=== PATIENT | male | born 1990 | race Caucasian/White ===

== ENCOUNTER 2018-03-07 03:46 | Emergency (ER) | payer MEDICAID, SELFPAY ==
[2018-03-07 03:46] VITALS: BP 127/95; PULSE 77; RESP 16; TEMP 36.5; O2SAT 98; BMI 21.5
--- NOTE | 2018-03-07 04:11 | EKG12_ITS ---
Test Reason : [facility] [place] Blood Pressure : / mmHG Vent. Rate : 069 BPM Atrial Rate : 069 BPM P-R Int : 156 ms QRS Dur : 098 ms QT Int : 400 ms P-R-T Axes : 080 030 030 degrees QTc Int : 428 ms Normal sinus rhythm Normal ECG Confirmed by DANNA NOVAK MD ([id number]), commercial production editor GLENN LI ([id number] on 03/09/2018 9:07:37 AM Referred By: REECE Confirmed By:DANNA NOVAK MD
[2018-03-07 04:25] LABS: Absolute Lymphocyte Count 3.38 X10^3/ul (0.83-4.51); Absolute Neutrophil Count 4.3 X10^3/uL (2.0-7.7); Basophil# 0.05 X10^3/uL; Basophil% 0.6 % (0-1); Eosinophil# 0.27 X10^3/uL; Eosinophils% 3.1 % (0-5); Hematocrit 41.9 % (40-54); Lymphocyte # 3.38 X10^3/ul (4.0); Lymphocyte % 38.5 % (19-41); Mean Corp Hgb Conc 35.8 g/gl (32-36); Mean Corpuscular Hgb 29.4 pg (27.0-32.0); Mean Platelet Vol. 9.2 fl (6.2-12.0); Monocyte# 0.76 X10^3/uL; Monocyte% 8.6 % (0-10); Neutrophil # 4.31 X10^3/uL (2.7-7.7); Platelet Count 470 K/mm3 (150-450); RBC Distribution Width CV 12.8 % (11.6-14.6); Red Blood Count 5.11 M/mm3 (4.6-6.2); White Blood Count 8.8 K/mm3 (4.4-11.0)
[2018-03-07 04:26] LABS: POSITIVE COUNT NO; POSITIVE DIFFERENTIAL NO; POSITIVE MORPHOLOGY NO
[2018-03-07] MEDS: Ondansetron ODT 4 MG Tablet PO (04:29)
[2018-03-07 05:02] LABS: Anion Gap 8 (5-15); BUN 14 mg/dL (7-18); BUN/Creat Ratio 17.1 RATIO (10-20); Chloride 105 mmol/L (98-107); Creatinine, Serum 0.82 mg/dL (0.70-1.30); EST Glomerular Filtration Rate 120 mL/min (>60); Est Glom Filt Rate - Afr Amer 145 mL/min (>60); Estimated Creatinine Clearance 131.38 ml/min; Glucose 100 mg/dL (74-106); Potassium 3.8 mmol/L (3.5-5.1); Sodium Level 141 mmol/L (136-145); Thyroid Stim Hormone (TSH) 1.03 uIU/mL (0.358-3.74)
--- NOTE | 2018-03-07 05:11 | ED.VISSUMM ---
- ER Visit Summary Date of Service: 03/07/18 Chief Complaint: Palpitations, insomnia History of Present Illness: The patient is a 27 M with a history of schizophrenia who states that he has had palpitations for the last hour. He also notes increased difficulty sleeping for the past week. He normally sleeps up to 12 hours a day but states he is only been sleeping for about 4 hours a day for the last week. He is concerned he may have been bipolar disorder. He complains of mild headache. He also admits to occasional auditory hallucinations. He is not suicidal. He is not homicidal. He does complain of some nausea. Physical Examination: Afebrile vitals are normal Patient resting comfortably in no distress Patient does not appear internally stimulated, he does have a blunted affect Moist mucous membranes Heart regular rate and rhythm Lungs are clear Abdomen soft Alert Test Results: EKG shows sinus rhythm at a rate of 69 unchanged from prior. CBC BMP normal. Alcohol normal. TSH normal. Emergency Department Course and Treatment: In regards to the patient's palpitations he has an unremarkable workup and is in normal sinus rhythm with a normal heart rate. I do believe he can be followed up as an outpatient for this. I do not believe he is acutely psychotic. I do not believe he meets criteria for involuntary psychiatric admission. He was advised to follow-up with his primary care physician. He understands return for new or worsening symptoms. He was discharged. Treatment Plan: [] Disposition: Discharge Impression: Palpitations Insomnia Schizophrenia This note was generated with [employer] dictation software. It may contain incorrect words, spelling, and punctuation that were not noted in review of the chart prior to signing ED Disposition - Plan for ED Patient: Chief Complaint: Mental Health Referrals: Lance Salgado DO [Primary Care Provider] -
--- NOTE | 2018-03-07 05:12 | ED.DEP ---
ED Disposition - Plan for ED Patient: Chief Complaint: Mental Health Instructions: ED Palpitations Referrals: Lance Salgado DO [Primary Care Provider] -
[2018-03-07 05:22] VITALS: BP 132/98; PULSE 66; RESP 16; O2SAT 95
== END 2018-03-07 05:23 | disposition home or self-care (01) ==
LOC: ED 04:37
PROVIDERS: Emergency Provider Emergency Medicine; Family Provider Pediatrics; PCP Pediatrics
DX: R00.2 Palpitations (principal); G47.00 Insomnia, unspecified; F20.9 Schizophrenia, unspecified; Z72.0 Tobacco use
CPT/HCPCS: 36415; 80048; 80320; 84443; 85025; 93005; 96374; 99284; G0480

== ENCOUNTER 2018-10-20 03:47 | Emergency (ER) | payer MEDICAID, SELFPAY ==
[2018-10-20 03:48] VITALS: BP 130/91; PULSE 97; RESP 16; TEMP 36.4; O2SAT 98; BMI 26.8
--- NOTE | 2018-10-20 04:07 | ED.VISSUMM ---
- ER Visit Summary Date of Service: 10/20/18 Chief Complaint: Restlessness hallucinations History of Present Illness: The patient is a 28 M with history of schizophrenia who is on Prolixin and Cogentin presents to the emergency department increasing restlessness and hallucinations. Patient states normally, he does not have hallucinations and his schizophrenia is usually well maintained. He states over the past 24 hours, he is been very afraid to go to sleep. He states when he falls asleep, he will have various voices that torture me when he is sleeping. He denies any change in his medications. He denies any drug use. He is otherwise been in his normal state of health. He states he is not been suicidal or homicidal. He just feels like he cannot deal with these hallucinations. Physical Examination: Vital signs reviewed General: Well-nourished, well-developed Head: Normocephalic, atraumatic Eyes: Pupils equal and reactive, extraocular muscles intact Neck, supple, no lymphadenopathy Heart: Regular rate and rhythm Respiratory: No distress, clear bilaterally Abdomen: Soft, nontender, nondistended, no peritoneal signs Back: Nontender Extremities: Nontender, no edema, no cords Skin: Normal color no rash Neuro: Alert and oriented, no focal or lateralizing deficits Test Results: [] Emergency Department Course and Treatment: The patient is not suicidal or homicidal. He has been having increasing hallucinations. Medical screening exam was performed. Labs were obtained and were unremarkable. My plan was to have crisis talk to the patient about outpatient follow-up versus medication titration. Patient states he does not want to stay. Both he and his father want to leave. I did ask him to stay to at least talk to the counselor. He still states that he feels improved. Is not suicidal. Is not homicidal. He does have hallucinations, but this is more of his baseline. I do not have any indication for an involuntary psychiatric hold. I did discuss with the patient and his father that if anything changes, he is feeling worse, he has worsening hallucinations, or is feeling suicidal he needs to return. He is comfortable with this plan of care.] Treatment Plan: [] Disposition: Discharge Impression: 1. Auditory hallucinations This note was generated with Event[employer] software. It may contain incorrect words, spelling, and punctuation that were not noted in review of the chart prior to signing ED Disposition - Plan for ED Patient: Instructions: ED Paranoid Schizophrenia Referrals: Dennis Olivas [Primary Care Provider] -
[2018-10-20 04:15] LABS: Absolute Lymphocyte Count 3.06 X10^3/ul (0.83-4.51); Absolute Neutrophil Count 4.4 X10^3/uL (2.0-7.7); Basophil# 0.04 X10^3/uL; Basophil% 0.5 % (0-1); Eosinophil# 0.35 X10^3/uL; Eosinophils% 4.1 % (0-5); Hematocrit 44.6 % (40-54); Hemoglobin 15.3 g/dl (13.0-16.5); Lymphocyte # 3.06 X10^3/ul (4.0); Lymphocyte % 35.7 % (19-41); Mean Corp Hgb Conc 34.3 g/gl (32-36); Mean Corpuscular Hgb 28.4 pg (27.0-32.0); Mean Corpuscular Volume 82.7 fL (80-94); Mean Platelet Vol. 9.7 fl (6.2-12.0); Monocyte# 0.72 X10^3/uL; Monocyte% 8.4 % (0-10); Neutrophil % 51.2 % (47-70); Platelet Count 493 K/mm3 (150-450); RBC Distribution Width CV 13.1 % (11.6-14.6); RBC Distribution Width SD 39.5 fl (35.1-43.9); Red Blood Count 5.39 M/mm3 (4.6-6.2); White Blood Count 8.6 K/mm3 (4.4-11.0)
[2018-10-20 04:25] LABS: Anion Gap 11 (5-15); BUN 11 mg/dL (7-18); BUN/Creat Ratio 14.4 RATIO (10-20); Calcium,Total 9.4 mg/dL (8.5-10.1); Chloride 102 mmol/L (98-107); Creatinine, Serum 0.76 mg/dL (0.70-1.30); EST Glomerular Filtration Rate 130 mL/min (>60); Est Glom Filt Rate - Afr Amer 157 mL/min (>60); Glucose 88 mg/dL (74-106); Potassium 3.8 mmol/L (3.5-5.1); Sodium Level 139 mmol/L (136-145)
[2018-10-20 04:29] LABS: POSITIVE COUNT NO; POSITIVE DIFFERENTIAL NO; POSITIVE MORPHOLOGY NO
--- NOTE | 2018-10-20 04:58 | EKG12_ITS ---
Test Reason : PALPITATIONS Blood Pressure : / mmHG Vent. Rate : 072 BPM Atrial Rate : 072 BPM P-R Int : 148 ms QRS Dur : 096 ms QT Int : 388 ms P-R-T Axes : 040 029 030 degrees QTc Int : 424 ms Normal sinus rhythm Normal ECG Confirmed by DANNA NOVAK MD ([id number]), assistant editor SARAH IZAGUIRRE ([id number]) on 10/22/2018 10:14:57 AM Referred By: DEANNA Confirmed By:DANNA NOVAK MD
[2018-10-20 05:23] LABS: Amphetamine Urine VISTA NEGATIVE (<1000 ng/mL); Barbiturate Urine VISTA NEGATIVE (< 200 ng/mL); Benzodiazepine Urine VISTA NEGATIVE (< 200 ng/mL); Cocaine Urine VISTA NEGATIVE (< 300 ng/mL); Ecstacy Urine VISTA NEGATIVE (< 500 ng/mL); Methadone Urine VISTA NEGATIVE (< 300 ng/mL); PCP Urine VISTA NEGATIVE (< 25 ng/mL); THC Urine VISTA NEGATIVE (< 50 ng/mL); Vista UDS pH Range 6
--- NOTE | 2018-10-20 06:14 | ED.RN ---
Patient at this time no longer wants to wait for crisis to arrive. Dr. Lloyd made aware. Patient has no SI or HI. Patient is not pink slipped and able to make decisions. Patient father willing to accept patient care. Discharge instructions given. as patient is walking out Joanna with crisis arrived. Patient does not want to stay and talk with crisis. Patient information given to crisis to follow up outpatient. Patients father agrees to plan of care
== END 2018-10-20 06:18 | disposition home or self-care (01) ==
PROVIDERS: Emergency Provider Emergency Medicine; Family Provider Family Medicine
DX: R44.0 Auditory hallucinations (principal); F41.9 Anxiety disorder, unspecified; F20.9 Schizophrenia, unspecified
CPT/HCPCS: 80048; 80307; 80320; 85025; 93005; 99282; G0480

== ENCOUNTER 2019-03-14 00:15 | Emergency (ER) | payer MEDICAID, SELFPAY ==
[2019-03-14 00:16] VITALS: BP 116/82; PULSE 94; RESP 19; TEMP 36.5; O2SAT 96; BMI 25.5
[2019-03-14 00:57] LABS: Absolute Lymphocyte Count 2.99 X10^3/ul (0.83-4.51); Absolute Neutrophil Count 4.3 X10^3/uL (2.0-7.7); Basophil# 0.05 X10^3/uL; Basophil% 0.6 % (0-1); Eosinophils% 2.4 % (0-5); Hematocrit 40.3 % (40-54); Hemoglobin 14.4 g/dl (13.0-16.5); Lymphocyte # 2.99 X10^3/ul (4.0); Lymphocyte % 36.3 % (19-41); Mean Corp Hgb Conc 35.7 g/gl (32-36); Mean Corpuscular Hgb 28.7 pg (27.0-32.0); Mean Corpuscular Volume 80.4 fL (80-94); Mean Platelet Vol. 9.5 fl (6.2-12.0); Monocyte# 0.74 X10^3/uL; Neutrophil # 4.25 X10^3/uL (2.7-7.7); Neutrophil % 51.6 % (47-70); Platelet Count 361 K/mm3 (150-450); RBC Distribution Width CV 13.2 % (11.6-14.6); RBC Distribution Width SD 37.9 fl (35.1-43.9); Red Blood Count 5.01 M/mm3 (4.6-6.2); White Blood Count 8.2 K/mm3 (4.4-11.0)
[2019-03-14 00:59] LABS: Anion Gap 6 (5-15); BUN 10 mg/dL (7-18); BUN/Creat Ratio 9.4 RATIO (10-20); Calcium,Total 8.9 mg/dL (8.5-10.1); Chloride 104 mmol/L (98-107); Creatinine, Serum 1.06 mg/dL (0.70-1.30); EST Glomerular Filtration Rate 89 mL/min (>60); Est Glom Filt Rate - Afr Amer 107 mL/min (>60); Estimated Creatinine Clearance 91.06 ml/min; Glucose 106 mg/dL (74-106); Potassium 3.4 mmol/L (3.5-5.1); Sodium Level 137 mmol/L (136-145)
[2019-03-14 01:08] LABS: POSITIVE COUNT NO; POSITIVE DIFFERENTIAL NO; POSITIVE MORPHOLOGY NO
[2019-03-14 01:42] LABS: Amphetamine Urine VISTA POSITIVE (<1000 ng/mL); Barbiturate Urine VISTA NEGATIVE (< 200 ng/mL); Benzodiazepine Urine VISTA NEGATIVE (< 200 ng/mL); Cocaine Urine VISTA NEGATIVE (< 300 ng/mL); Ecstacy Urine VISTA NEGATIVE (< 500 ng/mL); Methadone Urine VISTA NEGATIVE (< 300 ng/mL); PCP Urine VISTA NEGATIVE (< 25 ng/mL); THC Urine VISTA NEGATIVE (< 50 ng/mL); Vista UDS pH Range 6
[2019-03-14 02:12] LABS: Alcohol, Blood (Medical)-Serum < 3.0 mg/dL
--- NOTE | 2019-03-14 02:18 | ED.DCSUM_ITS ---
- ER Visit Summary Date of Service: 03/14/19 Chief Complaint: Hallucinations History of Present Illness: The patient is a 28 M presenting with hallucinations. He has a history of schizophrenia. Patient states the hallucinations have been ongoing for several years. He states one of the voices told him to kill himself but he would never do this. He denies suicidal or homicidal ideation. He states he heard whispering voices today and he felt they were evil. No recent change in his medication. Denies alcohol or drug use. Physical Examination: Vitals are stable. Patient is afebrile. Alert no acute distress. HEENT exam is unremarkable. Neck is supple. Lungs are clear and equal bilaterally. Heart is regular rate and rhythm. Extremities are unremarkable. Skin is warm and dry. No focal neurologic deficit. Paranoid. No suicidal or homicidal ideation Remainder of exam is unremarkable. Emergency Department Course and Treatment: CBC, chemistries unremarkable. Tox positive for amphetamine. Alcohol negative. Patient and family would like discharge home. Father states he is at his baseline and he is comfortable with discharge home. Patient denies suicidal or homicidal ideation. He will follow- up with the counseling center. Advised to return to the ED for worsening complaints. Disposition: Discharge home Impression: Auditory hallucinations This note was generated with [employer] dictation software. It may contain incorrect words, spelling, and punctuation that were not noted in review of the chart prior to signing ED Disposition - Plan for ED Patient: Instructions: SCHIZOPHRENIA, General Referrals: [facility] [GROUP OF PHYSICIANS] - Dennis Olivas [Primary Care Provider] -
--- NOTE | 2019-03-14 02:21 | ED.DEP ---
ED Disposition - Plan for ED Patient: Instructions: SCHIZOPHRENIA, General Referrals: Dennis Olivas [Primary Care Provider] - [facility] [GROUP OF PHYSICIANS] -
[2019-03-14 02:29] VITALS: RESP 18
== END 2019-03-14 02:29 | disposition home or self-care (01) ==
PROVIDERS: Emergency Provider Emergency Medicine; Family Provider Family Medicine
DX: R44.0 Auditory hallucinations (principal); Z72.0 Tobacco use
CPT/HCPCS: 36415; 80048; 80307; 80320; 85025; 99282; G0480

== ENCOUNTER 2019-09-03 13:15 | Emergency (ER) | payer MEDICAID, SELFPAY ==
[2019-09-03] VITALS (8 sets, daily range): BP systolic 148–164; BP diastolic 99–111; PULSE 104–121; RESP 14–18; TEMP 36.6–36.7; O2SAT 94–98; BMI 25.7
[2019-09-03 13:50] LABS: Absolute Lymphocyte Count 2.91 X10^3/uL (0.83-4.51); Absolute Neutrophil Count 7.2 X10^3/uL (2.0-7.7); Basophil% 0.9 % (0-1); Eosinophil# 0.41 X10^3/uL; Eosinophils% 3.5 % (0-5); Hematocrit 46.5 % (40-54); Hemoglobin 15.7 g/dL (13.0-16.5); Lymphocyte # 2.91 X10^3/ul (4.0); Mean Corp Hgb Conc 33.8 g/dL (32-36); Mean Platelet Vol. 9.4 fl (6.2-12.0); Monocyte# 0.92 X10^3/uL; Monocyte% 7.9 % (0-10); NRBC Flagged by Analyzer 0 % (0-5); Neutrophil # 7.23 X10^3/uL (2.7-7.7); Neutrophil % 62.3 % (47-70); Platelet Count 679 K/mm3 (150-450); RBC Distribution Width CV 13.4 % (11.6-14.6); RBC Distribution Width SD 41.8 fl (35.1-43.9); Red Blood Count 5.41 M/mm3 (4.6-6.2); White Blood Count 11.6 K/mm3 (4.4-11.0)
[2019-09-03 14:05] LABS: Anion Gap 7 (5-15); BUN 7 mg/dL (7-18); BUN/Creat Ratio 8.6 RATIO (10-20); Calcium,Total 9.6 mg/dL (8.5-10.1); Chloride 104 mmol/L (98-107); Creatinine, Serum 0.81 mg/dL (0.70-1.30); EST Glomerular Filtration Rate 120 mL/min (>60); Est Glom Filt Rate - Afr Amer 146 mL/min (>60); Estimated Creatinine Clearance 113.69 ml/min; Glucose 103 mg/dL (74-106); Potassium 3.4 mmol/L (3.5-5.1); Sodium Level 138 mmol/L (136-145)
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
[2019-09-03 14:28] LABS: Alcohol, Blood (Medical)-Serum < 3.0 mg/dL
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
--- NOTE | 2019-09-03 14:38 | RAD_ITS ---
STUDY: X-RAY CHEST REASON FOR EXAM: Male, 29 years old. History of schizophrenia. Minimal health evaluation. TECHNIQUE: Single frontal view of the chest. COMPARISON: None. FINDINGS: The lungs are clear and expanded. There is no demonstrated pleural abnormality. Normal size heart. Normal mediastinum and david. Normal visualized pulmonary arteries. Normal visualized aortic arch and descending thoracic aorta. Normal visualized thoracic spine. Normal visualized ribs, clavicles, and shoulders. There is no demonstrated abnormality of the visualized soft tissue structures of the upper abdomen. RAD/Chest 1 View (Portable) IMPRESSION: Normal x-ray examination of the chest. Electronically Signed: Leandro Farias MD at 15:03 EST , Service support ,
[2019-09-03 15:10] LABS: Amphetamine Urine VISTA NEGATIVE (<1000 ng/mL); Barbiturate Urine VISTA NEGATIVE (< 200 ng/mL); Benzodiazepine Urine VISTA NEGATIVE (< 200 ng/mL); Cocaine Urine VISTA NEGATIVE (< 300 ng/mL); Ecstacy Urine VISTA NEGATIVE (< 500 ng/mL); Methadone Urine VISTA NEGATIVE (< 300 ng/mL); PCP Urine VISTA NEGATIVE (< 25 ng/mL); THC Urine VISTA NEGATIVE (< 50 ng/mL); Vista UDS pH Range 6
--- NOTE | 2019-09-03 15:36 | CM.ED ---
Social Work Patient medically cleared per Dr. Danielson. Telephone call to [facility]. Made referral. They do have open beds and accept patient insurance. Clinical information faxed. Pending approval. Amber MURRAY, SAMINA
--- NOTE | 2019-09-03 16:17 | CM.ED ---
Social Work Telephone call from [facility]. Patient has been accepted. Admitting: Dr. Armendariz. Nurse to Nurse Report: [phone]. Unit: [id number]. Updated medical staff and patient. All agreeable to plan. Wilburn Slip faxed. Amber Macdonald MSW, SAMINA
--- NOTE | 2019-09-03 16:42 | NURSING ---
CALLED [facility], TRANSPORT WILL BE HERE ABOUT 1929
--- NOTE | 2019-09-03 19:48 | ED.RN ---
REPORT TO [facility]. PT SKIN P/W/D, RESP EVEN AND UNLABORED, NO DISTRESS NOTED.
== END 2019-09-03 19:55 ==
PROVIDERS: Emergency Provider Emergency Medicine
DX: F20.9 Schizophrenia, unspecified (principal); D69.6 Thrombocytopenia, unspecified
CPT/HCPCS: 71045; 80048; 80307; 80320; 85025; 99285; G0480

== ENCOUNTER 2019-10-17 04:08 | Emergency (ER) | payer MEDICAID, SELFPAY ==
[2019-09-03 13:18] VITALS: BMI 25.7
[2019-10-17] VITALS (15 sets, daily range): BP systolic 124–170; BP diastolic 78–110; PULSE 74–114; RESP 16–20; TEMP 36.3; O2SAT 97–100; BMI 26.0
--- NOTE | 2019-10-17 04:22 | ED.DCSUM_ITS ---
History of Present Illness Chief Complaint: Mental Health Informant: Patient, - - Well enforcement Limited: - - Patient does not trust me because I am not a psychiatrist on him wearing green scrubs Onset: - - Patient denied he has history of schizophrenia. When asked if he ever been hospitalized he responded at the age of 23 for schizophrenia. Context: Able to determine Conflict: - - States he is homeless and reason he was brought to the emergency department Timing: - - Unknown Current Severity: Severe Maximum Severity: Severe Worsened by: - - If patient is question or challenged he becomes slightly agitated. His speech becomes pressured. He voices missed trust. Associated Symptoms: Change in sleeping, Easily distracted, Increased activity, Pressured Speech, Agitated, Paranoia, - - During history he would look up to the left and stare. There was no seizure activity. He denied visual or auditory hallucinations.. Negative for: Hopelessness, Suicidal Thoughts, Visual Hallucinations, Auditory Hallucinations Narrative: Patient is a 29-year-old male who apparently was diagnosed with schizophrenia at the age of 23. He is present on no medication. He states he is homeless. He denies tobacco, alcohol or drug use. He was found behind the wa [employer]. He then was taken to [facility]. He was removed from the [facility]. Law enforcement was contacted. Law enforcement was concerned because of patient's thought process. Patient has paranoid ideation. He denies schizophrenia, denies depression, denies auditory or visual elucidation and denies suicidal homicidal thoughts. He believes he was brought here because he is homeless. Prior similar symptoms: Yes Recent Illness/Hospitalization: No - Past Medical History (1) Schizophrenia Status: Acute Past Medical History - Allergies and Home Meds Allergies/Adverse Reactions: Allergies peanut Allergy (Verified 10/17/19 04:12) Food Allergy sulfamethoxazole [From Bactrim] Allergy (Verified 10/17/19 04:12) Itching trimethoprim [From Bactrim] Allergy (Verified 10/17/19 04:12) Itching haloperidol [From Haldol] Adverse Reaction (Verified 10/17/19 04:12) Other Primary Care Physician: NOT,DEFINED [NON-STAFF] - Prior records reviewed: No Surgical History: no surgical history Lives: Homeless, - Smoking Status: Never smoker Alcohol: None Drugs: None Review of Systems General: Denies: Chills, Fever Eyes: Denies: Visual changes - bilaterally, Blurred Vision - bilaterally ENT: Denies: Rhinorrhea, Sore throat Cardiovascular: Denies: Chest pain, Palpitations Respiratory: Denies: Dyspnea, Cough, Dyspnea on exertion Gastrointestinal: Denies: Abdominal pain, Nausea, Vomiting, Diarrhea, Melena, Hematochezia Genitourinary: Denies: Dysuria, Hematuria, Frequency Musculoskeletal: Denies: Myalgias, Arthralgias, Neck pain, Back pain Skin: Denies: Rash, Wounds Neurological: Denies: Headache, Weakness, Parasthesia Psych: Denies: Depression, Anxiety, Suicidal thoughts Hematologic: Denies: Easy bruising, Easy bleeding Allergy: Denies: Uticaria, Swelling of the mouth Physical Exam Vital Signs/Narrative: Vital Signs Temp Pulse Resp BP Pulse Ox 10/17/19 04:09 97.4 F L 94 20 H 170/95 H 97 Inital Vital Signs reviewed: Yes General: Well nourished, Well developed, Unkempt. Negative for: Obese, Cachectic, Contractures Head: Normocephalic, Atraumatic, - - No clinical findings of basilar skull fracture. Negative for: Trauma, Tenderness Eyes: Perrl, EOMI. Negative for: Pale conjunctiva, Scleral icterus ENT: Moist mucous membranes, No rhinorrhea, TM's clear Neck: Supple, Nontender, No lymphadenopathy, No JVD Cardiovascular: Regular rate, Regular rhythm, No murmurs, Normal S1, Normal S2 Respiratory: No distress, CTA bilaterally, Chest nontender Abdomen: Soft, Nontender, Nondistended, Normal bowel sounds Extremities: Nontender, No Edema, Symmetric. Negative for: Tenderness, Edema, Asymmetric Skin: Normal color, No rash, No Trauma. Negative for: Cyanosis, Diaphoresis, Jaundice, Pallor, Rash Neurological: Alert, Cranial nerves II-XII grossly intact, Normal Strength, Normal Sensation, Normal DTR, Normal Gait Psych: Irritable, Labile, Pressured Speech, Incoherent thoughts, Paranoid Ideation, Poor Insight, Poor Judgement. Negative for: Normal Speech Pattern, Logical sequential goal directed thoughts, No suicidal or homicidal ideation, Normal Stable Appropriate Affect, Good Insight, Good Judgement, Normal Appearance Diagnostic/Tx/Re-eval Laboratory Results 02/06/20 02/06/20 02/06/20 04:33 04:33 04:33 WBC 13.7 H RBC 6.13 Hgb 16.9 H Hct 50.3 MCV 82.1 MCH 27.6 MCHC 33.6 RDW Std Deviation 38.4 RDW Coeff of Javy 13.0 Plt Count 797 H* MPV 9.0 Immature Gran % (Auto) 0.300 Neut % (Auto) 64.6 Lymph % (Auto) 25.7 Irion % (Auto) 6.4 Eos % (Auto) 2.1 Baso % (Auto) 0.9 Absolute Neuts (auto) 8.8 H Absolute Lymphs (auto) 3.51 Nucleated RBC % 0 Diff Path Review May foll Platelet Estimate MKD INC Sodium 138 Potassium 3.3 L Chloride 103 Carbon Dioxide 26.0 Anion Gap 9 BUN 2 L Creatinine 0.72 Estim Creat Clear Calc 137.84 Est GFR (MDRD) Af Amer 166 Est GFR (MDRD) Non-Af 137 BUN/Creatinine Ratio 2.8 L Glucose 92 Calcium 9.6 Urine Opiates Screen Urine Methadone Screen Ur Barbiturates Screen Ur Phencyclidine Scrn Ur Amphetamines Screen U Methamphetamin-MDMA U Benzodiazepines Scrn Urine Cocaine Screen U Cannabinoids Screen Ur Drug Screen Comment Ethyl Alcohol < 3.0 10/17/19 06:40 WBC RBC Hgb Hct MCV MCH MCHC RDW Std Deviation RDW Coeff of Javy Plt Count MPV Immature Gran % (Auto) Neut % (Auto) Lymph % (Auto) Irion % (Auto) Eos % (Auto) Baso % (Auto) Absolute Neuts (auto) Absolute Lymphs (auto) Nucleated RBC % Diff Path Review Platelet Estimate Sodium Potassium Chloride Carbon Dioxide Anion Gap BUN Creatinine Estim Creat Clear Calc Est GFR (MDRD) Af Amer Est GFR (MDRD) Non-Af BUN/Creatinine Ratio Glucose Calcium Urine Opiates Screen NEGATIVE Urine Methadone Screen NEGATIVE Ur Barbiturates Screen NEGATIVE Ur Phencyclidine Scrn NEGATIVE Ur Amphetamines Screen NEGATIVE U Methamphetamin-MDMA NEGATIVE U Benzodiazepines Scrn NEGATIVE Urine Cocaine Screen NEGATIVE U Cannabinoids Screen NEGATIVE Ur Drug Screen Comment Ethyl Alcohol Tox screen and alcohol level are nondetected. As previously stated the white count and elevated platelet count are not normal however Patient has paranoia and is schizophrenic. Will obtain CBC, electrolyte panel, tox screen to evaluate patient for other causes of change in mental status. If these are negative with prior history of schizophrenia mental health will be contacted for admission. Patient would benefit from admission. CBC is remarkable for slight elevation white count which is a nonspecific marker and may be elevated for multiple reasons. Platelet count is elevated. This is not normal. This is not an acute abnormality and does not require emergent work-up. This can be worked up as an outpatient over the next couple of weeks. ED Disposition - Plan for ED Patient: Disposition: Psychiatric Hospital or Unit Diagnosis: Schizophrenia, paranoid Referrals: NOT,DEFINED [NON-STAFF] -
[2019-10-17 04:40] LABS: Absolute Lymphocyte Count 3.51 X10^3/uL (0.83-4.51); Absolute Neutrophil Count 8.8 X10^3/uL (2.0-7.7); Basophil# 0.12 X10^3/uL; Basophil% 0.9 % (0-1); Eosinophil# 0.29 X10^3/uL; Eosinophils% 2.1 % (0-5); Hematocrit 50.3 % (40-54); Hemoglobin 16.9 g/dL (13.0-16.5); Lymphocyte # 3.51 X10^3/ul (4.0); Lymphocyte % 25.7 % (19-41); Mean Corp Hgb Conc 33.6 g/dL (32-36); Mean Corpuscular Hgb 27.6 pg (27.0-32.0); Mean Corpuscular Volume 82.1 fL (80-94); Monocyte# 0.88 X10^3/uL; Monocyte% 6.4 % (0-10); NRBC Flagged by Analyzer 0 % (0-5); Neutrophil # 8.83 X10^3/uL (2.7-7.7); Neutrophil % 64.6 % (47-70); POSITIVE COUNT YES; RBC Distribution Width SD 38.4 fl (35.1-43.9); Red Blood Count 6.13 M/mm3 (4.6-6.2); White Blood Count 13.7 K/mm3 (4.4-11.0)
[2019-10-17 04:43] LABS: Differential Indicated SCAN CRITERIA MET
[2019-10-17 04:44] LABS: Platelet Count 797 K/mm3 (150-450)
[2019-10-17 04:59] LABS: Alcohol, Blood (Medical)-Serum < 3.0 mg/dL
[2019-10-17 05:00] LABS: Anion Gap 9 (5-15); BUN 2 mg/dL (7-18); BUN/Creat Ratio 2.8 RATIO (10-20); Calcium,Total 9.6 mg/dL (8.5-10.1); Chloride 103 mmol/L (98-107); Creatinine, Serum 0.72 mg/dL (0.70-1.30); EST Glomerular Filtration Rate 137 mL/min (>60); Est Glom Filt Rate - Afr Amer 166 mL/min (>60); Estimated Creatinine Clearance 137.84 ml/min; Glucose 92 mg/dL (74-106); Potassium 3.3 mmol/L (3.5-5.1); Sodium Level 138 mmol/L (136-145)
[2019-10-17 05:04] LABS: Platelet Estimate MKD INC (ADEQ)
[2019-10-17 07:27] LABS: Amphetamine Urine VISTA NEGATIVE (<1000 ng/mL); Barbiturate Urine VISTA NEGATIVE (< 200 ng/mL); Benzodiazepine Urine VISTA NEGATIVE (< 200 ng/mL); Cocaine Urine VISTA NEGATIVE (< 300 ng/mL); Ecstacy Urine VISTA NEGATIVE (< 500 ng/mL); Methadone Urine VISTA NEGATIVE (< 300 ng/mL); PCP Urine VISTA NEGATIVE (< 25 ng/mL); THC Urine VISTA NEGATIVE (< 50 ng/mL); Vista UDS pH Range 6
[2019-10-17 11:48] LABS: Pathologist Review Reviewed
--- NOTE | 2019-10-17 12:39 | NURSING ---
I CALLED SEVERAL [facility] AND NO ONE IS ABLE TO TAKE PATIENT TO [facility] IN [place]. I THEN CALLED TO [facility] AND TALKED TO TIM AND SHE SAID SHE WOULD SEE WHAT THEY COULD DO BUT NOT PROMISING.
== END 2019-10-17 20:16 ==
PROVIDERS: Emergency Provider Emergency Medicine
DX: F20.0 Paranoid schizophrenia (principal); Z59.0 Homelessness; Z88.1 Allergy status to other antibiotic agents; Z88.2 Allergy status to sulfonamides; Z88.8 Allergy status to other drugs, medicaments and biological substances
CPT/HCPCS: 80048; 80307; 80320; 85025; 99285; A4216; G0480

== ENCOUNTER 2019-11-04 14:26 | Emergency (ER) | payer MEDICAID, SELFPAY ==
[2019-10-17 04:09] VITALS: BMI 26.0
[2019-11-04 14:30] VITALS: BP 151/101; PULSE 110; RESP 16; TEMP 36.4; O2SAT 95; BMI 24.0
--- NOTE | 2019-11-04 15:10 | ED.VIS.GEN ---
History of Present Illness Chief Complaint: Mental Health Informant: Patient, - - Police Narrative: Patient is brought to the emergency department by the police department. He was [facility] asking them to get inside a house that he does not belong to. Patient was recently seen here and transferred to psychiatric facility with psychosis. Tells me he has been out for about a week. He still wearing his hospital scrubs and tells me that all of his belongings are locked in a house and is just locked. No he has a gomez. He tells me that he is royalty but cannot use any of his influence to get into the house because it is locked. He also tells me he is a dangerous weapon stating that he is a [place] him from [facility] but he does not have sex. He states that the rest of the general population is week for having sex. Past Medical History - Allergies and Home Meds Allergies/Adverse Reactions: Allergies peanut Allergy (Verified 10/17/19 04:12) Food Allergy sulfamethoxazole [From Bactrim] Allergy (Verified 10/17/19 04:12) Itching trimethoprim [From Bactrim] Allergy (Verified 10/17/19 04:12) Itching haloperidol [From Haldol] Adverse Reaction (Verified 10/17/19 04:12) Other Primary Care Physician: Care Physician,No Primary [Primary Care Provider] - Surgical History: no surgical history Smoking Status: Former smoker Review of Systems General: Denies: Chills, Fever, Sweats Eyes: Denies: Visual changes - bilaterally, Diplopia ENT: Denies: Rhinorrhea, Sore throat Cardiovascular: Denies: Chest pain, Palpitations Respiratory: Denies: Dyspnea, Cough, Dyspnea on exertion Gastrointestinal: Denies: Abdominal pain, Nausea, Vomiting, Diarrhea, Melena, Hematochezia Genitourinary: Denies: Dysuria, Hematuria, Frequency Musculoskeletal: Denies: Back pain, Extremity Pain Skin: Denies: Rash, Wounds Neurological: Denies: Headache, Weakness, Numbness Psych: Reports: - - See HPI Physical Exam Vital Signs/Narrative: Vital Signs Temp Pulse Resp BP Pulse Ox 11/04/19 14:30 97.6 F L 110 H 16 151/101 H 95 Inital Vital Signs reviewed: Yes General: Well nourished, Well developed, Unkempt - Patient is wearing paper scrubs with holes in them., No Acute Distress Head: Normocephalic, Atraumatic Eyes: Perrl, EOMI ENT: Moist mucous membranes, No rhinorrhea Neck: Supple, Nontender Cardiovascular: Regular rate, Regular rhythm, No murmurs Respiratory: No distress, CTA bilaterally, Chest nontender Abdomen: Soft, Nontender, Nondistended, Normal bowel sounds Back: Nontender, Normal Inspection Extremities: Nontender, No edema Skin: Normal color, No rash Neurological: Alert, Oriented x3, Cranial nerves II-XII grossly intact, Normal Strength, Normal Sensation Psychological: - - Patient has pressured speech. Flight of ideas. Nonlinear thinking. Hallucinations and delusions. Diagnostic/Tx/Re-eval - Medical Decision Making Case discussed with social work who knows the patient. We are unable to find anybody and helpless with him. No family. He does not appear to have the ability to care for himself. Therefore I am concerned for his safety. ED Disposition - Plan for ED Patient: Diagnosis: Acute psychosis, Schizophrenia Referrals: Care Physician,No Primary [Primary Care Provider] -
[2019-11-04 15:42] LABS: Absolute Lymphocyte Count 2.07 X10^3/uL (0.83-4.51); Absolute Neutrophil Count 6.5 X10^3/uL (2.0-7.7); Basophil# 0.07 X10^3/uL; Basophil% 0.7 % (0-1); Eosinophil# 0.23 X10^3/uL; Eosinophils% 2.3 % (0-5); Hematocrit 43.5 % (40-54); Hemoglobin 14.6 g/dL (13.0-16.5); Lymphocyte # 2.07 X10^3/ul (4.0); Mean Corp Hgb Conc 33.6 g/dL (32-36); Mean Corpuscular Hgb 27.4 pg (27.0-32.0); Mean Corpuscular Volume 81.6 fL (80-94); Mean Platelet Vol. 9.7 fl (6.2-12.0); Monocyte# 0.95 X10^3/uL; Monocyte% 9.7 % (0-10); NRBC Flagged by Analyzer 0 % (0-5); Neutrophil # 6.48 X10^3/uL (2.7-7.7); Neutrophil % 65.9 % (47-70); POSITIVE COUNT YES; RBC Distribution Width CV 13.3 % (11.6-14.6); Red Blood Count 5.33 M/mm3 (4.6-6.2); White Blood Count 9.8 K/mm3 (4.4-11.0)
[2019-11-04 16:07] LABS: Alcohol, Blood (Medical)-Serum < 3.0 mg/dL
[2019-11-04 16:09] LABS: Differential Indicated SCAN CRITERIA MET; Platelet Count 770 K/mm3 (150-450)
[2019-11-04 16:14] LABS: ALB/GLOB Ratio 1.2 RATIO (0.9-2.4); AST(SGOT) 13 U/L (15-37); Alanine Aminotransfer ALT/SGPT 23 U/L (16-61); Albumin, Serum 3.8 g/dL (3.2-5.0); Alkaline Phosphatase 73 U/L (45-117); Anion Gap 7 (5-15); BUN 8 mg/dL (7-18); BUN/Creat Ratio 11.2 RATIO (10-20); Calcium,Total 9.4 mg/dL (8.5-10.1); Chloride 106 mmol/L (98-107); Creatinine, Serum 0.72 mg/dL (0.70-1.30); EST Glomerular Filtration Rate 139 mL/min (>60); Est Glom Filt Rate - Afr Amer 168 mL/min (>60); Globulin 3.3 g/dL (2.2-4.2); Glucose 104 mg/dL (74-106); Potassium 3.7 mmol/L (3.5-5.1); Protein, Total 7.1 g/dL (6.4-8.2); Sodium Level 141 mmol/L (136-145); Thyroid Stim Hormone (TSH) 0.42 uIU/mL (0.358-3.74)
[2019-11-04 16:15] LABS: Differential Comment SCANNED; Platelet Estimate MKD INC (ADEQ)
[2019-11-04 17:05] VITALS: BP 141/62; PULSE 78; RESP 16; O2SAT 99
[2019-11-04 17:11] LABS: Bacteria 0 SEEN /hpf (None Seen); Mucous, Urine 0 SEEN /hpf (<or=2+); Red Blood Cells-Urine 0 SEEN /hpf (0-5); Squamous Epithelial Cells - UA 0 SEEN /hpf (0-5); White Blood Cells 0 SEEN /hpf (0-5)
--- NOTE | 2019-11-04 17:20 | CM.ED ---
Social Work Consult: Mental Health Informant: Dr. Andrade Chief Complaint: Marital/Social History: Single Living Situation: Homeless Support/Resources: Limited. History: None. Education/Employment: Unemployed. Completed high school. Mental Health Treatment/History: Patient reporting to be schizoaffective. Patient denies any current medication or counseling services. Patient stating history of inpatient psychiatric placement in the past. Patient reporting to have been discharged from an inpatient psychiatric facility today. Abuse Issues: Denies any active abuse. Substance Abuse: Denies. Risk to Self/Others: Patient denies any suicidal or homicidal thoughts. Mental Status Exam: A&Ox3 Appearance/General Behavior: Disheveled, paranoid. Mood/Affect: Elevated. Appears to be easily annoyed/frustrated. Communication Patterns: Responds to questions, pressured/rapid speech pattern. Thought Process: Appears to be speaking to someone that is not there. Continues to refer to Adarsh Crawford, PHYSICIAN OFFICE CLIN ASST of some company as patient house mate. Assessment: Met with patient in room. Introduced self and vp digital marketing social media and crm role. Patient is agreeable to speak with this vp digital marketing social media and crm. Patient stating to only need to get into patient home on [address] [place] [address]. Patient stating to have called the police to get help with this and the police brought patient to the ED. Patient is presenting with flight of idea and rapid speech pattern. Per Police report patient wanted police to assist patient in getting in to [address] [place] [address], but this is not patient home as confirmed by another person living there. Police stating that patient started acting strange and this is why patient was brought to the hospital. Patient has been pink slipped at this time. When confirming with patient that the home on [facility] is not patient's home patient stating It is my house. Patient denies being homeless. Patient is not open to this vp digital marketing social media and crm contacting any family/friends. Patient stating the only contact number is: [phone] and this is the phone that patient shares with Adarsh Crawford. Patient stating that Adarsh and patient do not answer their phone. This vp digital marketing social media and crm did speak with police further. Police department did provide this vp digital marketing social media and crm with contact information for persons living at [facility] in the event that they know patient, attempted to call theses contacts, no answer. There is not contact information for patient family or friends. Unable to confirm a safe discharge plan. Patient presenting with paranoid thoughts and behaviors. Concerns of patient being able to meet patient own needs at this time. Collaborating with Dr. Andrade, recommending inpatient psychiatric placement for stabilization. PLAN: Will work towards inpatient psychiatric placement. Amber Macdonald MSW, SAMINA
[2019-11-04 17:33] LABS: Color, Urine Yellow (Yellow); Glucose, Dipstick Normal (Normal); Ketone-Dipstick Negative (Negative); Leukocyte Esterase-Dipstick Negative /ul (Negative); Nitrite-Dipstick Negative (Negative); Occult Blood-Urine Negative /ul (Negative); Protein-Dipstick Negative (Negative); Urine Bilirubin Dipstick Negative (Negative); Urine Clarity Clear (Clear); Urine Urobilinogen Normal (Normal)
[2019-11-04 17:41] LABS: Amphetamine Urine VISTA NEGATIVE (<1000 ng/mL); Barbiturate Urine VISTA NEGATIVE (< 200 ng/mL); Benzodiazepine Urine VISTA NEGATIVE (< 200 ng/mL); Cocaine Urine VISTA NEGATIVE (< 300 ng/mL); Ecstacy Urine VISTA NEGATIVE (< 500 ng/mL); Methadone Urine VISTA NEGATIVE (< 300 ng/mL); PCP Urine VISTA NEGATIVE (< 25 ng/mL); THC Urine VISTA NEGATIVE (< 50 ng/mL); Vista UDS pH Range 7
--- NOTE | 2019-11-04 18:11 | CM.ED ---
Social Work Telephone call to [facility], intake. Referral placed. There are open beds. Clinicals faxed. Pending response at this time. Amber MURRAY, SAMINA
--- NOTE | 2019-11-04 18:39 | CM.ED ---
Social Work Telephone call from [facility], patient has been accepted. Nurse to nurse: [phone]. Accepting doctor: Dr. Reynolds. Patient to admit to the ITU unit. Updated medical team. [place] slip faxed. Amber MURRAY, SAMINA
[2019-11-04 19:26] VITALS: RESP 16
[2019-11-05 14:39] LABS: Pathologist Review Reviewed
== END 2019-11-04 19:42 ==
PROVIDERS: Emergency Provider Emergency Medicine
DX: F20.9 Schizophrenia, unspecified (principal)
CPT/HCPCS: 36415; 80053; 80307; 80320; 81001; 84443; 85025; 99284; G0480

== ENCOUNTER 2019-11-25 17:32 | Emergency (ER) | payer MEDICAID, SELFPAY ==
[2019-11-25 17:33] VITALS: BP 123/88; PULSE 97; RESP 12; TEMP 36.5; O2SAT 96; BMI 26.4
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
[2019-11-25 18:20] LABS: Absolute Lymphocyte Count 3.25 X10^3/uL (0.83-4.51); Absolute Neutrophil Count 6.4 X10^3/uL (2.0-7.7); Basophil# 0.09 X10^3/uL; Basophil% 0.8 % (0-1); Eosinophil# 0.39 X10^3/uL; Eosinophils% 3.5 % (0-5); Hematocrit 48.5 % (40-54); Hemoglobin 15.8 g/dL (13.0-16.5); Lymphocyte # 3.25 X10^3/ul (4.0); Lymphocyte % 29.5 % (19-41); Mean Corp Hgb Conc 32.6 g/dL (32-36); Mean Corpuscular Hgb 26.6 pg (27.0-32.0); Mean Corpuscular Volume 81.8 fL (80-94); Mean Platelet Vol. 9.2 fl (6.2-12.0); Monocyte# 0.88 X10^3/uL; NRBC Flagged by Analyzer 0 % (0-5); Neutrophil # 6.35 X10^3/uL (2.7-7.7); Neutrophil % 57.8 % (47-70); Platelet Count 742 K/mm3 (150-450); RBC Distribution Width CV 13.8 % (11.6-14.6); RBC Distribution Width SD 40.4 fl (35.1-43.9); Red Blood Count 5.93 M/mm3 (4.6-6.2)
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
[2019-11-25 19:14] LABS: Anion Gap 6 (5-15); BUN 7 mg/dL (7-18); BUN/Creat Ratio 8.9 RATIO (10-20); Calcium,Total 9.1 mg/dL (8.5-10.1); Chloride 107 mmol/L (98-107); Creatinine, Serum 0.79 mg/dL (0.70-1.30); EST Glomerular Filtration Rate 125 mL/min (>60); Est Glom Filt Rate - Afr Amer 151 mL/min (>60); Estimated Creatinine Clearance 116.57 ml/min; Glucose 90 mg/dL (74-106); Potassium 3.8 mmol/L (3.5-5.1); Sodium Level 136 mmol/L (136-145)
[2019-11-25 19:32] VITALS: RESP 18
[2019-11-25 19:35] LABS: Alcohol, Blood (Medical)-Serum < 3.0 mg/dL
--- NOTE | 2019-11-25 20:34 | CM.ED ---
SOCIAL WORK REFERRAL CALLED AND FAXED TO [facility]. WILL FAX [facility] RESULTS ONCE RECEIVED. Del MARIE, COMMUNITY HEALTH DIRECTOR, SALES RECRUITER.
[2019-11-25 21:00] VITALS: BP 140/98; PULSE 85; RESP 16; TEMP 36.8; O2SAT 98
[2019-11-25 21:19] LABS: Amphetamine Urine VISTA NEGATIVE (<1000 ng/mL); Barbiturate Urine VISTA NEGATIVE (< 200 ng/mL); Benzodiazepine Urine VISTA NEGATIVE (< 200 ng/mL); Cocaine Urine VISTA NEGATIVE (< 300 ng/mL); Ecstacy Urine VISTA NEGATIVE (< 500 ng/mL); Methadone Urine VISTA NEGATIVE (< 300 ng/mL); PCP Urine VISTA NEGATIVE (< 25 ng/mL); THC Urine VISTA NEGATIVE (< 50 ng/mL); Vista UDS pH Range 6
--- NOTE | 2019-11-25 21:28 | CM.ED ---
SOCIAL WORK CALL FROM [facility], PATIENT ACCEPTED BY DR. MENDEZ TO THE ITU. NURSE TO CALL REPORT TO . STAFF UPDATED. COPY OF TOX SCREEN AND PINK SLIP FAXED PER REQUEST. Del MARIE, SAND MILL OPERATOR FACING SAND, LEAD NETWORK ENGINEER.
[2019-11-25 21:46] VITALS: BP 140/98; PULSE 85; RESP 16; TEMP 36.8; O2SAT 98
[2019-11-25 23:00] VITALS: RESP 16
[2019-11-26 01:39] VITALS: RESP 16
[2019-11-26 03:22] VITALS: BP 129/84; PULSE 84; RESP 16; O2SAT 100
[2019-11-26 05:00] VITALS: RESP 14
--- NOTE | 2019-11-26 07:43 | NURSING ---
[facility] FOR TRANSPORT, ETA IS 2 HRS
--- NOTE | 2019-11-26 10:06 | NURSING ---
CALLED [facility]. SYLVIE YUSUF
[2019-11-26 10:56] VITALS: BP 138/84; PULSE 84; RESP 16; O2SAT 99
== END 2019-11-26 10:57 ==
LOC: ED 18:29
PROVIDERS: Emergency Provider Emergency Medicine
DX: F25.9 Schizoaffective disorder, unspecified (principal); Z87.891 Personal history of nicotine dependence; Z88.2 Allergy status to sulfonamides; Z88.8 Allergy status to other drugs, medicaments and biological substances; Z88.1 Allergy status to other antibiotic agents
CPT/HCPCS: 36415; 80048; 80307; 80320; 85025; 99285; G0480

== ENCOUNTER 2020-01-03 17:29 | Emergency (ER) | payer MEDICAID, SELFPAY ==
[2020-01-03 17:30] VITALS: BP 128/95; PULSE 132; RESP 12; TEMP 37; O2SAT 95; BMI 27.5
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
[2020-01-03 18:35] VITALS: RESP 16
[2020-01-03 18:58] LABS: Absolute Lymphocyte Count 2.93 X10^3/uL (0.83-4.51); Absolute Neutrophil Count 6.5 X10^3/uL (2.0-7.7); Basophil# 0.11 X10^3/uL; Eosinophil# 0.34 X10^3/uL; Eosinophils% 3.1 % (0-5); Hematocrit 45.3 % (40-54); Hemoglobin 15.3 g/dL (13.0-16.5); Lymphocyte # 2.93 X10^3/ul (4.0); Lymphocyte % 26.7 % (19-41); Mean Corp Hgb Conc 33.8 g/dL (32-36); Mean Corpuscular Hgb 27.9 pg (27.0-32.0); Mean Corpuscular Volume 82.7 fL (80-94); Mean Platelet Vol. 9.8 fl (6.2-12.0); Monocyte# 1.07 X10^3/uL; Monocyte% 9.8 % (0-10); NRBC Flagged by Analyzer 0 % (0-5); Neutrophil # 6.49 X10^3/uL (2.7-7.7); Neutrophil % 59.2 % (47-70); Platelet Count 640 K/mm3 (150-450); RBC Distribution Width CV 15.4 % (11.6-14.6); RBC Distribution Width SD 44.5 fl (35.1-43.9); Red Blood Count 5.48 M/mm3 (4.6-6.2)
[2020-01-03 19:00] VITALS: RESP 18
[2020-01-03 19:10] LABS: Anion Gap 4 (5-15); BUN 12 mg/dL (7-18); BUN/Creat Ratio 14.2 RATIO (10-20); Calcium,Total 9.7 mg/dL (8.5-10.1); Chloride 107 mmol/L (98-107); Creatinine, Serum 0.84 mg/dL (0.70-1.30); EST Glomerular Filtration Rate 115 mL/min (>60); Est Glom Filt Rate - Afr Amer 139 mL/min (>60); Estimated Creatinine Clearance 109.63 ml/min; Glucose 106 mg/dL (74-106); Potassium 4.2 mmol/L (3.5-5.1); Sodium Level 141 mmol/L (136-145)
[2020-01-03 19:43] LABS: Amphetamine Urine VISTA NEGATIVE (<1000 ng/mL); Barbiturate Urine VISTA NEGATIVE (< 200 ng/mL); Benzodiazepine Urine VISTA NEGATIVE (< 200 ng/mL); Cocaine Urine VISTA NEGATIVE (< 300 ng/mL); Ecstacy Urine VISTA NEGATIVE (< 500 ng/mL); Methadone Urine VISTA NEGATIVE (< 300 ng/mL); PCP Urine VISTA NEGATIVE (< 25 ng/mL); THC Urine VISTA NEGATIVE (< 50 ng/mL); Vista UDS pH Range 7
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
[2020-01-03 20:00] VITALS: RESP 16
--- NOTE | 2020-01-03 20:11 | CM.ED ---
SOCIAL WORK REFERRAL FAXED AND CALLED TO [facility]. AWAITING ACCEPTANCE. Del MARIE, SHIPYARD PAINTER, SHEARER HELPER.
[2020-01-03 20:26] LABS: Alcohol, Blood (Medical)-Serum < 3.0 mg/dL
--- NOTE | 2020-01-03 20:47 | CM.ED ---
SOCIAL WORK CALL FROM [place] WITH [facility]. PATIENT ACCEPTED BY PRESCHOOL ASSISTANT [facility]INC[facility]RENZO TO [facility] (ADULT [facility]HAVIORAL UNIT). NURSE TO CALL REPORT TO [facility]. STAFF UPDATED. PINK SLIP FAXED PER REQUEST. Del MARIE, NUCLEAR MEDICINE TECH, HORIZONTAL RESAW OPERATOR.
[2020-01-03 21:25] VITALS: BP 123/80; PULSE 102; RESP 18; O2SAT 98
--- NOTE | 2020-01-03 21:30 | ED.RN ---
[facility] CALL[facility]. ET A90 MINS
[2020-01-03 23:05] VITALS: BP 128/80; PULSE 100; RESP 18; TEMP 37; O2SAT 100
== END 2020-01-03 23:25 ==
PROVIDERS: Emergency Provider Emergency Medicine; PCP Pediatrics
DX: F20.0 Paranoid schizophrenia (principal); Z88.1 Allergy status to other antibiotic agents; Z88.2 Allergy status to sulfonamides; Z88.8 Allergy status to other drugs, medicaments and biological substances
CPT/HCPCS: 36415; 80048; 80307; 80320; 85025; 99285; G0480

== ENCOUNTER 2020-01-24 06:43 | Emergency (ER) | payer MEDICAID, SELFPAY ==
[2020-01-24 06:44] VITALS: BP 141/88; PULSE 107; RESP 18; TEMP 36.5; O2SAT 96; BMI 28.5
[2020-01-24 07:19] LABS: Absolute Lymphocyte Count 4.16 X10^3/uL (0.83-4.51); Absolute Neutrophil Count 5.5 X10^3/uL (2.0-7.7); Basophil# 0.09 X10^3/uL; Basophil% 0.8 % (0-1); Eosinophil# 0.37 X10^3/uL; Eosinophils% 3.3 % (0-5); Hematocrit 44.9 % (40-54); Hemoglobin 15.1 g/dL (13.0-16.5); Lymphocyte # 4.16 X10^3/ul (4.0); Lymphocyte % 37.5 % (19-41); Mean Corp Hgb Conc 33.6 g/dL (32-36); Mean Corpuscular Hgb 27.3 pg (27.0-32.0); Monocyte# 0.92 X10^3/uL; Monocyte% 8.3 % (0-10); NRBC Flagged by Analyzer 0 % (0-5); Neutrophil # 5.53 X10^3/uL (2.7-7.7); Neutrophil % 49.8 % (47-70); POSITIVE COUNT YES; RBC Distribution Width CV 15.4 % (11.6-14.6); RBC Distribution Width SD 42.5 fl (35.1-43.9); Red Blood Count 5.54 M/mm3 (4.6-6.2); White Blood Count 11.1 K/mm3 (4.4-11.0)
--- NOTE | 2020-01-24 07:21 | NURSING ---
pt sitting style in bed and not talking to nurse now. just shrugging shoulders to questions. call light available and instructions given for urine
[2020-01-24 07:23] LABS: Differential Indicated SCAN CRITERIA MET
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
[2020-01-24 07:56] LABS: Platelet Morphology CLUMPED
[2020-01-24 07:57] LABS: Platelet Estimate MOD INC (ADEQ)
[2020-01-24 07:59] LABS: Differential Comment SCANNED
[2020-01-24 08:01] LABS: Alcohol, Blood (Medical)-Serum < 3.0 mg/dL
[2020-01-24 09:08] LABS: Anion Gap 6 (5-15); BUN 6 mg/dL (7-18); BUN/Creat Ratio 7.4 RATIO (10-20); Calcium,Total 9.4 mg/dL (8.5-10.1); Chloride 105 mmol/L (98-107); Creatinine, Serum 0.81 mg/dL (0.70-1.30); EST Glomerular Filtration Rate 120 mL/min (>60); Est Glom Filt Rate - Afr Amer 145 mL/min (>60); Estimated Creatinine Clearance 113.69 ml/min; Glucose 99 mg/dL (74-106); Potassium 4.1 mmol/L (3.5-5.1); Sodium Level 140 mmol/L (136-145)
--- NOTE | 2020-01-24 10:30 | CM.ED ---
Social Work Consult: Mental Health Informant: Dr. Parker Chief Complaint: Patient brought in by police. Is not pink slipped at this time. Patient stating I brought myself in. Patient now wanting to leave. Patient is not clear with this pediatric social worker on why patient came to the ED. Marital/Social History: Single. Living Situation: Lives with patient father, Jose Elias Botello - [phone] Supports/Resources: History of following with the counseling center but is noncompliant. Education/Employment: Unemployed. Denies any issues with comprehension or understanding. Mental Health Treatment/History: Schizophrenia. Noncompliant with medications and counseling services. History of multiple psychiatric placements. [facility] (09[facility]2019). [facility] (10/17/2019). [facility] (11/04/2019, 11/25/2019, 01/03/2020). Patient confirming to be noncompliant with medications stating that patient is just a test and does not need to take medication. Abuse History: Denies Substance Abuse/use: Denies Risk to Self/Others: Patient denies any homicidal or suicidal thoughts/plans. Patient denies any history of suicidal or homicidal thoughts/plans. Mental Status Exam: A&Ox3 Appearance/General Behavior: Calm. Rapid speak at times. Responds to questions. Flat affect. Thought Process: Denies auditory or visual hallucinations. Assessment: Met with patient in room. Introduced self as well as pediatric social worker role. Patient is agreeable to meeting with this pediatric social worker. Patient is familiar to this pediatric social worker. Patient with history of multiple inpatient psychiatric placements within the past year, 5 in total. Patient has history of being noncompliant with medications and refuses to take medications. Patient standing beside bed in room when this pediatric social worker entered. Patient appears to be calm and stands while speaking with this pediatric social worker. Patient is not presenting with threatening behavior. Patient stating to want to discharge to be able to return to Jose Elias Botello's home. Patient stating to be living with Jose Elias. Patient will not clarify who Bill is. Patient is open to this pediatric social worker calling patient father, patient does not provide this pediatric social worker with patient father name. Telephone call to patient father. Patient father stating to be named: Jose Elias Botello. Bill confirming that patient does lives with him. Bill stating to have no current concerns of patient current behavior. Bill stating to feel safe with patient. Bill stating to believe that this is patient baseline. Bill stating to have attempted to give patient medications in the past and this doesn't go well. Bill stating to plan to come and pick patient up if patient is medically cleared. Bill stating that patient has a history of going to inpatient psychiatric facilities and being fine for a week after discharge but then not taking medications. Bill stating they [facility] don't help. Bill stating that patient is own person and refuses to follow up with counseling services, patient did decline all mental health follow up options. Collaborating with Dr. Parker. Plan is for patient to discharge to home with recommendation to follow up with psychiatry/counseling services. Telephone call to Jose Elias, Jose Elias updated on plan. Bill agreeable and will come product picker patient. Bill confirming that patient has needed medication at home. Met with patient in room, patient updated. Patient agreeable. Patient continues to decline mental health follow up stating I don't need that. PLAN: Discharge to home with . Amber MURRAY, SAMINA
[2020-01-24 11:26] VITALS: RESP 18
[2020-01-24 11:27] VITALS: RESP 18
--- NOTE | 2020-01-24 11:27 | ED.RN ---
PT WAS REFUSING TO GIVE URINE SAMPLE, PT INFORMED THAT A CATHETER COULD BE USED IF HE WAS HAVING DIFFICULTY URINATING. PT REFUSED CATHETER. DR KLEIN WAS INFORMED. PINK SLIP NOT YET SIGNED. DR KLEIN REPORTS WANTING TO HAVE LEADITE WORKER TALK TO PT PRIOR TO SIGNING A PINK SLIP. DESIRAE THE ER LEADITE WORKER IN TO TALK TO PT AND DETERMINED HE IS NOT A THREAT TO HIMSELF OR OTHERS. DESIRAE WAS THEN ABLE TO TALK TO PT'S FATHER WHO REPORTED THAT HE WOULD COME UP AND TAKE PT HOME. PT TO BE D/C HOME WITH FAMILY
== END 2020-01-24 11:30 | disposition home or self-care (01) ==
PROVIDERS: Emergency Provider Emergency Medicine; PCP Pediatrics
DX: F25.9 Schizoaffective disorder, unspecified (principal)
CPT/HCPCS: 36415; 80048; 80320; 85025; 99282; G0480

== ENCOUNTER 2020-01-25 03:25 | Emergency (ER) | payer MEDICAID, SELFPAY ==
[2020-01-24 06:44] VITALS: BMI 28.5
[2020-01-25 03:25] VITALS: BP 147/96; PULSE 109; RESP 18; TEMP 36.7; O2SAT 97; BMI 28.5
--- NOTE | 2020-01-25 03:40 | ED.RN ---
patient refused to remove clothes and get blood drawn. dr. steven wilder.
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
[2020-01-25 03:59] LABS: Absolute Lymphocyte Count 3.44 X10^3/uL (0.83-4.51); Absolute Neutrophil Count 6.7 X10^3/uL (2.0-7.7); Basophil% 0.9 % (0-1); Eosinophil# 0.34 X10^3/uL; Hematocrit 46.3 % (40-54); Hemoglobin 15.1 g/dL (13.0-16.5); Lymphocyte # 3.44 X10^3/ul (4.0); Lymphocyte % 29.9 % (19-41); Mean Corp Hgb Conc 32.6 g/dL (32-36); Mean Corpuscular Hgb 26.6 pg (27.0-32.0); Mean Corpuscular Volume 81.5 fL (80-94); Mean Platelet Vol. 9.2 fl (6.2-12.0); Monocyte# 0.92 X10^3/uL; NRBC Flagged by Analyzer 0 % (0-5); Neutrophil # 6.68 X10^3/uL (2.7-7.7); Neutrophil % 57.9 % (47-70); Platelet Count 646 K/mm3 (150-450); RBC Distribution Width CV 14.5 % (11.6-14.6); RBC Distribution Width SD 42.3 fl (35.1-43.9); Red Blood Count 5.68 M/mm3 (4.6-6.2); White Blood Count 11.5 K/mm3 (4.4-11.0)
[2020-01-25 04:29] LABS: Anion Gap 6 (5-15); BUN 8 mg/dL (7-18); Calcium,Total 9.1 mg/dL (8.5-10.1); Chloride 100 mmol/L (98-107); EST Glomerular Filtration Rate 122 mL/min (>60); Est Glom Filt Rate - Afr Amer 147 mL/min (>60); Estimated Creatinine Clearance 115.11 ml/min; Glucose 105 mg/dL (74-106); Potassium 3.7 mmol/L (3.5-5.1); Sodium Level 137 mmol/L (136-145)
[2020-01-25 04:44] LABS: Amphetamine Urine VISTA NEGATIVE (<1000 ng/mL); Barbiturate Urine VISTA NEGATIVE (< 200 ng/mL); Benzodiazepine Urine VISTA NEGATIVE (< 200 ng/mL); Cocaine Urine VISTA NEGATIVE (< 300 ng/mL); Ecstacy Urine VISTA NEGATIVE (< 500 ng/mL); Methadone Urine VISTA NEGATIVE (< 300 ng/mL); PCP Urine VISTA NEGATIVE (< 25 ng/mL); THC Urine VISTA NEGATIVE (< 50 ng/mL); Vista UDS pH Range 6
[2020-01-25 04:45] LABS: Alcohol, Blood (Medical)-Serum < 3.0 mg/dL
--- NOTE | 2020-01-25 04:53 | NURSING ---
CALLED CRISIS AT [phone]
[2020-01-25 05:10] VITALS: RESP 16
[2020-01-25 06:46] VITALS: RESP 16
[2020-01-25 09:34] VITALS: BP 128/76; PULSE 101; RESP 18; O2SAT 98
[2020-01-25 12:35] VITALS: BP 143/82; PULSE 93; RESP 18; TEMP 36.5; O2SAT 98
[2020-01-25 12:46] VITALS: BP 143/83; PULSE 93; RESP 18; TEMP 36.5; O2SAT 98
== END 2020-01-25 13:00 ==
LOC: ED 04:43
PROVIDERS: Emergency Provider Emergency Medicine; PCP Pediatrics
DX: F20.9 Schizophrenia, unspecified (principal); Z88.1 Allergy status to other antibiotic agents; Z88.2 Allergy status to sulfonamides; Z88.8 Allergy status to other drugs, medicaments and biological substances
CPT/HCPCS: 80048; 80307; 80320; 85025; 99283; G0480

== ENCOUNTER 2020-02-20 06:42 | Emergency (ER) | payer MEDICAID, SELFPAY ==
[2020-02-20 06:44] VITALS: BP 154/89; PULSE 82; RESP 18; TEMP 36.6; O2SAT 99; BMI 23.0
[2020-02-20] MEDS: Ziprasidone IM 20 MG/ML VIAL IM (07:23)
--- NOTE | 2020-02-20 07:28 | ED.DCSUM_ITS ---
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 Onset: Days Current Severity: Mild Maximum Severity: Mild Narrative: The patient is brought in by EMS he has history of mental health disorder apparently has been off of his medications he was behind I believe they said the post office or similar building he was babbling he was going through the alphabet going through current and past current events He is looking around the room waving his hands up in the air he will not focus he will not provide history EMS could tell us only that he was found behind a building babbling to himself Past Medical History - Allergies and Home Meds Allergies/Adverse Reactions: Allergies peanut Allergy (Verified 02/20/20 06:47) Food Allergy sulfamethoxazole [From Bactrim] Allergy (Verified 02/20/20 06:47) Itching trimethoprim [From Bactrim] Allergy (Verified 02/20/20 06:47) Itching haloperidol [From Haldol] Adverse Reaction (Verified 02/20/20 06:47) Other Primary Care Physician: Lance Salgado DO [Primary Care Provider] - Past Medical History: - Surgical History: no surgical history Smoking Status: Never smoker Review of Systems ROS: Unable to Obtain - Psychiatric disorder Physical Exam Vital Signs/Narrative: Vital Signs Temp Pulse Resp BP Pulse Ox 02/20/20 06:44 97.8 F 82 18 154/89 H 99 General: Well nourished, Well developed, No Acute Distress Head: Normocephalic, Atraumatic Eyes: Perrl, EOMI ENT: Moist mucous membranes, No rhinorrhea Neck: Supple, Nontender Cardiovascular: Regular rate, Regular rhythm, No murmurs Respiratory: No distress, CTA bilaterally, Chest nontender Abdomen: Soft, Nontender, Nondistended, Normal bowel sounds Back: Nontender, Normal Inspection Extremities: Nontender, No edema Skin: Normal color, No rash Neurological: Alert, Oriented x3, Cranial nerves II-XII grossly intact, Normal Strength, Normal Sensation Psychological: Agitated, - - He is looking around the room waving his hands in the air he goes to the alphabet noting different letters he speaks randomly about current and past events he is not directable will not provide his name he is moving all 4 extremities he has no obvious signs of trauma he appears disheveled Diagnostic/Tx/Re-eval - Medical Decision Making Given all of the above ED screening evaluation he may require chemical sedation due to his severe agitation for his safety and safety of staff Patient is resting more comfortably he is slightly less agitated more directable, his ED screening evaluation was generally unremarkable, he has not been able to collect a urine into the container as of yet so the urine tox is pending, we spoke with the counseling center they spoke with the patient did an assessment he apparently was just discharged yesterday from a psychiatric facility in the [facility] area The plan is to have him readmitted to a facility counseling center staff working on that we will sign a pink slip and he will be transferred once that dispo sition status has been determined Admit to psychiatric center per counseling center staff Impression final, psychosis exacerbation schizophrenia, noncompliance with medication ED Disposition - Plan for ED Patient: Diagnosis: Schizophrenia Instructions: ED Schizophrenia General Referrals: Lance Salgado DO [Primary Care Provider] -
[2020-02-20 07:31] LABS: Absolute Lymphocyte Count 2.98 X10^3/uL (0.83-4.51); Absolute Neutrophil Count 6.3 X10^3/uL (2.0-7.7); Basophil# 0.08 X10^3/uL; Basophil% 0.8 % (0-1); Eosinophils% 2.9 % (0-5); Hematocrit 49.7 % (40-54); Hemoglobin 16.7 g/dL (13.0-16.5); Lymphocyte # 2.98 X10^3/ul (4.0); Lymphocyte % 28.6 % (19-41); Mean Corp Hgb Conc 33.6 g/dL (32-36); Mean Corpuscular Hgb 26.6 pg (27.0-32.0); Mean Corpuscular Volume 79.1 fL (80-94); Mean Platelet Vol. 9.6 fl (6.2-12.0); Monocyte# 0.79 X10^3/uL; Monocyte% 7.6 % (0-10); NRBC Flagged by Analyzer 0 % (0-5); Neutrophil # 6.26 X10^3/uL (2.7-7.7); Neutrophil % 59.9 % (47-70); POSITIVE COUNT YES; RBC Distribution Width CV 14.6 % (11.6-14.6); RBC Distribution Width SD 40.2 fl (35.1-43.9); Red Blood Count 6.28 M/mm3 (4.6-6.2); White Blood Count 10.4 K/mm3 (4.4-11.0)
[2020-02-20 07:33] LABS: Differential Indicated SCAN CRITERIA MET; Platelet Count 933 K/mm3 (150-450)
[2020-02-20 07:35] LABS: Alcohol, Blood (Medical)-Serum < 3.0 mg/dL
[2020-02-20 07:36] LABS: Anion Gap 9 (5-15); BUN 8 mg/dL (7-18); BUN/Creat Ratio 7.8 RATIO (10-20); Calcium,Total 9.8 mg/dL (8.5-10.1); Chloride 105 mmol/L (98-107); Creatinine, Serum 1.02 mg/dL (0.70-1.30); EST Glomerular Filtration Rate 92 mL/min (>60); Est Glom Filt Rate - Afr Amer 111 mL/min (>60); Glucose 110 mg/dL (74-106); Potassium 3.6 mmol/L (3.5-5.1); Sodium Level 139 mmol/L (136-145)
[2020-02-20 08:08] VITALS: RESP 18
[2020-02-20 08:17] LABS: Platelet Estimate MKD INC (ADEQ)
--- NOTE | 2020-02-20 08:19 | ED.RN ---
[facility] CONTACTED TO SEE THE PT
--- NOTE | 2020-02-20 08:21 | ED.RN ---
Pt asked multiple times to stay in room. Pt was observed masterbating and was told that it was not appropriate. Pt pacing in the room at this time.
--- NOTE | 2020-02-20 08:25 | ED.RN ---
[facility] CONTACTED TO SEE THE PT. SEYMOUR SPEAKING WITH DR JUAREZ AT THIS TIME
[2020-02-20 09:25] VITALS: RESP 18
[2020-02-20] MEDS: 0.9% Normal Saline 1,000 ML 999 ML IV (09:41)
[2020-02-20 10:11] VITALS: RESP 16
--- NOTE | 2020-02-20 12:10 | ED.RN ---
ADONAY KRAMER TO BE HERE IN 60-90 MIN
[2020-02-20 13:40] VITALS: RESP 18
[2020-02-21 11:42] LABS: Pathologist Review Reviewed
== END 2020-02-20 13:40 ==
LOC: ED 08:24
PROVIDERS: Emergency Provider Emergency Medicine; PCP Pediatrics
DX: F20.9 Schizophrenia, unspecified (principal); Z88.1 Allergy status to other antibiotic agents; Z88.2 Allergy status to sulfonamides; Z88.8 Allergy status to other drugs, medicaments and biological substances; Z91.14 Patient's other noncompliance with medication regimen
CPT/HCPCS: 80048; 80320; 85025; 96360; 96372; 99285; J7030; A4216; G0480; J3486

== ENCOUNTER 2020-03-05 08:27 | Emergency (ER) | payer MEDICAID, SELFPAY ==
[2020-03-05] VITALS (9 sets, daily range): BP systolic 115–137; BP diastolic 67–88; PULSE 73–98; RESP 14–18; TEMP 36.6; O2SAT 98–99; BMI 26.4
[2020-03-05 09:10] LABS: Absolute Lymphocyte Count 3.11 X10^3/uL (0.83-4.51); Absolute Neutrophil Count 5.7 X10^3/uL (2.0-7.7); Basophil# 0.08 X10^3/uL; Basophil% 0.8 % (0-1); Eosinophil# 0.33 X10^3/uL; Eosinophils% 3.3 % (0-5); Lymphocyte # 3.11 X10^3/ul (4.0); Lymphocyte % 30.8 % (19-41); Mean Corp Hgb Conc 32.6 g/dL (32-36); Mean Corpuscular Hgb 26.9 pg (27.0-32.0); Mean Corpuscular Volume 82.4 fL (80-94); Mean Platelet Vol. 9.4 fl (6.2-12.0); Monocyte# 0.82 X10^3/uL; Monocyte% 8.1 % (0-10); NRBC Flagged by Analyzer 0 % (0-5); Neutrophil # 5.73 X10^3/uL (2.7-7.7); Neutrophil % 56.7 % (47-70); Platelet Count 638 K/mm3 (150-450); RBC Distribution Width CV 14.5 % (11.6-14.6); Red Blood Count 5.58 M/mm3 (4.6-6.2); White Blood Count 10.1 K/mm3 (4.4-11.0)
[2020-03-05 09:25] LABS: ALB/GLOB Ratio 1.1 RATIO (0.9-2.4); AST(SGOT) 16 U/L (15-37); Alanine Aminotransfer ALT/SGPT 32 U/L (16-61); Alkaline Phosphatase 76 U/L (45-117); Anion Gap 6 (5-15); BUN 22 mg/dL (7-18); BUN/Creat Ratio 27.1 RATIO (10-20); Calcium,Total 9.6 mg/dL (8.5-10.1); Chloride 104 mmol/L (98-107); Creatinine, Serum 0.81 mg/dL (0.70-1.30); EST Glomerular Filtration Rate 120 mL/min (>60); Est Glom Filt Rate - Afr Amer 145 mL/min (>60); Estimated Creatinine Clearance 113.69 ml/min; Globulin 3.6 g/dL (2.2-4.2); Glucose 107 mg/dL (74-106); Protein, Total 7.6 g/dL (6.4-8.2); Sodium Level 139 mmol/L (136-145)
[2020-03-05 09:32] LABS: Amphetamine Urine VISTA NEGATIVE (<1000 ng/mL); Barbiturate Urine VISTA NEGATIVE (< 200 ng/mL); Benzodiazepine Urine VISTA NEGATIVE (< 200 ng/mL); Cocaine Urine VISTA NEGATIVE (< 300 ng/mL); Ecstacy Urine VISTA NEGATIVE (< 500 ng/mL); Methadone Urine VISTA NEGATIVE (< 300 ng/mL); PCP Urine VISTA NEGATIVE (< 25 ng/mL); THC Urine VISTA NEGATIVE (< 50 ng/mL); Vista UDS pH Range 7
--- NOTE | 2020-03-05 09:40 | ED.VISSUMM ---
- ER Visit Summary Date of Service: 03/05/20 Chief Complaint: Altered mental status History of Present Illness: The patient is a 29 M who presents by police for altered mental status. He has a history of schizophrenia. He is talking about the end times and Octavia Gerardo. He is not suicidal or homicidal. Physical Examination: Afebrile and vital signs unremarkable. Head and neck atraumatic. Heart regular. Lungs clear. Abdomen soft. Skin appears normal. Cranial nerves grossly intact. Moves all extremities. Normal gait. No suicidal or homicidal thoughts. He does have delusions, flight of ideas, and tangentiality. Test Results: Platelets elevated 638, stable. CMP unremarkable. Alcohol pending. Tox screen negative. Emergency Department Course and Treatment: Patient had psychiatric precautions. [place] slip. He was treated with Geodon for some mild agitation. Work-up was unremarkable/stable. He is medically cleared for transfer and admission for psychiatric care. Crisis was notified. Treatment Plan: As above Disposition: Pending transfer Impression: Psychosis This note was generated with [employer] dictation software. It may contain incorrect words, spelling, and punctuation that were not noted in review of the chart prior to signing ED Disposition - Plan for ED Patient: Referrals: NOT,DEFINED [NON-STAFF] -
[2020-03-05] MEDS: Ziprasidone IM 20 MG/ML VIAL IM (11:00)
--- NOTE | 2020-03-05 11:08 | CM.ED ---
Social Work Consult: Mental Health Informant: Dr. Treviño Chief Complaint: I can't hear you, the muscle in my body are too tight, the voices are ringing in my ears. Marital/Social History: Single Living Situation: Lives with fatherJose Elias - [phone] Supports/Resources: Is connected with the [facility], is noncompliant with follow up care. Education/Employment: Unemployed. Mental Health Treatment/History: Schizophrenia. History of inpatient psychiatric placements. Last placement appears to have been on February 20, 2020. Patient with history of noncompliance with medication. Triggers/Stressors: Unable to assess Coping Skills: Unable to assess Abuse Issues: No history, per prior assessments Substance Abuse Hx: None, per prior assessments Risk to Self/Others: When this addiction social worker inquired if patient has any current thoughts of suicide or homicide patient states I can't hear you. Mental Status Exam: A&Ox3 Appearance/General Behavior: Pacing the room, Disheveled, Mood/Affect: Elevated. Bizarre. Nonsensical speech, rambling. Communication Pattern: Does not respond to questions other then I can't hear you. Judgement: Poor Assessment: Met with patient in room. Introduced self as well as addiction social worker role. Patient did not acknowledge or deny speaking to this addiction social worker. This addiction social worker inquiring as to how patient came to the hospital today. Patient states the PRABHA, no wait the police. Patient then states to not be able to hear due to voices in my ears, and muscle being too tight. This addiction social worker attempted to ask further questions but patient continues to state I can't hear you. Patient pink slipped to ED by police department. Per pink slip patient was stating that there are 3 serial killers around, patient was talking quickly, patient presented as delusional, patient states to be a mole for the PRABHA and has special abilities. Patient showed landing signal officer patient shoulder and told the police that patient could make hormones to make someone look younger. Majority of assessment information obtained through chart review and prior social work assessments. Per chart review patient denied suicidal/homicidal thoughts to ED physician. Collaborating with Dr. Treviño. Recommending inpatient psychiatric placement. PLAN: Facilitate placement. Amber Macdonald
--- NOTE | 2020-03-05 11:17 | ED.RN ---
PT COMES TO NURSES STATION AND ASKED TO GO BACK TO HIS HOUSE. INFORMED HE HAS TO STAY IN ER FOR TREATMENT. THEN ASKED THIS NURSE WILL YOU PLEASE HAVE SEX WITH ME?. OFFER DECLINED BY THIS NURSE, REDIRECTED BACK TO ROOM. PT COMPLIES.
--- NOTE | 2020-03-05 11:38 | CM.ED ---
Social Work Telephone call to [facility], intake. Referral made. Clinical information faxed. Pending review. Amber MURRAY, SAMINA
--- NOTE | 2020-03-05 11:50 | ED.RN ---
REPEATEDLY COMES TO NURSES STATION, ATTEMPTING TO LEAVE. PACING IN ROOM. EACH TIME HE IS ABLE TO BE REDIRECTED BACK TO ROOM.
--- NOTE | 2020-03-05 11:52 | ED.RN ---
AGITATION NOTED BY YELLING AT SELF IN ROOM, PACING.
[2020-03-05] MEDS: LORazepam 2 MG/ML Syringe IM (12:08)
[2020-03-05] MEDS: DiphenhydrAMINE 50 MG/ML Syringe IM (12:08)
--- NOTE | 2020-03-05 12:09 | ED.RN ---
PT RESTLESS, REPEATEDLY COMES TO NURSES STATION, ATTEMPTED TO LEAVE. REDIRECTED.
--- NOTE | 2020-03-05 12:11 | ED.RN ---
WHEN ATTEMPTING TO ADMINISTER MEDICATIONS, PT STATES NO. ASKED PT TO SIT SO THAT MEDICATIONS COULD BE ADMINISTERED. PT AGAIN STATES NO, THEN SITS AND ALLOWS NURSING TO ADMINISTER MEDS.
--- NOTE | 2020-03-05 12:33 | CM.ED ---
Social Work Telephone call from [facility], declining patient due to multiple visits and patient continues to be noncompliant with medications. Telephone call to Ashley Nguyen. Referral placed. Clinical information faxed. Pending review. Ashley inquiring as to what medication patient is to be on. No medication listed in chart. Telephone call to Lance JAIME. Lance reporting that per latest report from [facility] patient is to be on Zyprexa 20mg and Trazodone 50mg. This social work coordinator also inquiring about follow up care in the community. Lance states that patient does not follow up with follow up appointments. This social work coordinator inquiring if patient would be appropriate for a residential setting, Lance does not believe that patient would do well in a residential. Telephone call back to [facility]. Updated Tressa on above medications. Amber Macdonald MSW, SAMINA
--- NOTE | 2020-03-05 13:37 | ED.RN ---
RESTING COMFORTABLY IN BED, NO SIGNS OF DISTRESS OR AGITATION.
--- NOTE | 2020-03-05 13:47 | ED.RN ---
PT RESTING QUIETLY IN BED, AWAKES TO NAME, NO SIGNS OF DISTRESS.
--- NOTE | 2020-03-05 15:10 | CM.ED ---
Addendum entered by Bree Macdonald 03/05/20 15:24: [place] faxed to [facility] Original Note: Social Work Telephone call from Ashley Nguyen. Patient has been accepted. Admitting doctor: Dr. Armendariz. Nurse to nurse report: [phone]. Patient to be admitted to the [address] 10[address]. Updated medical team. Patient continues to be resting in room. Telephone call to patient father, Jose Elias. Updated Bill on discharge location. Bill thanking this social director. Telephone call to [facility], updated on patient disposition. This social director also inquiring about guardianship and further community support for patient. Patient does not have a shoe caser and the guardianship process has not been initiated. [facility] reporting to look into this. This social director recommending case management services as well as exploring guardianship options for patient. PLAN: Discharge to [facility]. Amber MURRAY, SAIMNA
== END 2020-03-05 18:06 ==
PROVIDERS: Emergency Provider Emergency Medicine; PCP Family Medicine
DX: F29 Unspecified psychosis not due to a substance or known physiological condition (principal)
CPT/HCPCS: 80053; 80307; 80320; 85025; 96372; 99283; G0480; J3486

== ENCOUNTER 2020-04-04 03:14 | Emergency (ER) | payer MEDICAID, SELFPAY ==
[2020-03-05 08:28] VITALS: BMI 26.4
[2020-04-04 03:15] VITALS: BP 124/88; PULSE 112; RESP 16; TEMP 36.3; O2SAT 99; BMI 25.9
--- NOTE | 2020-04-04 03:42 | ED.VIS.GEN ---
History of Present Illness Chief Complaint: Confusion Narrative: Patient is complaining of a sore throat, however he is brought in for confusion he was found wandering around town. He tells me he has a history of schizoaffective disorder, he is here because he has a singers gene, he has other delusions as I am talking to him, it is quite difficult to get any good history of present illness from him due to his bizarre behavior. He does deny any drugs or alcohol. Past Medical History - Allergies and Home Meds Allergies/Adverse Reactions: Allergies peanut Allergy (Verified 04/04/20 03:20) Food Allergy sulfamethoxazole [From Bactrim] Allergy (Verified 04/04/20 03:20) Itching trimethoprim [From Bactrim] Allergy (Verified 04/04/20 03:20) Itching haloperidol [From Haldol] Adverse Reaction (Verified 04/04/20 03:20) Other Primary Care Physician: Ham Richard MD [Primary Care Provider] - Past Medical History: - - Schizoaffective disorder Surgical History: no surgical history Smoking Status: Never smoker Review of Systems All systems negative except as indicated General: Reports: - - Review of systems is somewhat difficult and I am not sure that I can trust the mall but he does deny most of the below. Eyes: Denies: Visual changes - bilaterally ENT: Reports: Sore throat Cardiovascular: Denies: Chest pain Respiratory: Denies: Dyspnea, Cough Gastrointestinal: Denies: Abdominal pain, Nausea, Vomiting Genitourinary: Denies: Dysuria Musculoskeletal: Denies: Myalgias Skin: Denies: Rash Neurological: Denies: Headache, Weakness Psych: Denies: Suicidal thoughts, Suicidal ideations Physical Exam Vital Signs/Narrative: Vital Signs Temp Pulse Resp BP Pulse Ox 04/04/20 03:15 97.4 F L 112 H 16 124/88 H 99 General: - - Patient appears somewhat unkept, he is quite bizarre Head: Normocephalic, Atraumatic Eyes: Perrl ENT: Moist mucous membranes, - - He has no pharyngeal erythema he has a normal voice he has a normal soft palate. Negative for: Nasal congestion Neck: Supple Cardiovascular: Regular rate, Regular rhythm Respiratory: No distress, CTA bilaterally Abdomen: Soft, Nontender Back: Nontender, Normal Inspection Extremities: Nontender, No edema Skin: Normal color Neurological: Alert, Oriented x3 Psychological: Normal affect Diagnostic/Tx/Re-eval - Medical Decision Making Patient will be medically cleared after which I will allow the psychiatric liaison to consult on him for possible transfer to psychiatric facility. ED Disposition - Plan for ED Patient: Diagnosis: Schizoaffective disorder, Acute psychosis Referrals: Ham Richard MD [Primary Care Provider] -
[2020-04-04 03:55] LABS: Bedside Glucose 108 mg/dL (70-110)
[2020-04-04 03:59] LABS: Absolute Lymphocyte Count 1.88 X10^3/uL (0.83-4.51); Absolute Neutrophil Count 9.5 X10^3/uL (2.0-7.7); Basophil# 0.06 X10^3/uL; Basophil% 0.5 % (0-1); Eosinophil# 0.05 X10^3/uL; Eosinophils% 0.4 % (0-5); Hematocrit 46.9 % (40-54); Hemoglobin 15.8 g/dL (13.0-16.5); Lymphocyte # 1.88 X10^3/ul (4.0); Lymphocyte % 15.4 % (19-41); Mean Corp Hgb Conc 33.7 g/dL (32-36); Mean Corpuscular Hgb 27.4 pg (27.0-32.0); Mean Corpuscular Volume 81.4 fL (80-94); Mean Platelet Vol. 9.3 fl (6.2-12.0); Monocyte# 0.69 X10^3/uL; Monocyte% 5.7 % (0-10); NRBC Flagged by Analyzer 0 % (0-5); Neutrophil # 9.47 X10^3/uL (2.7-7.7); Neutrophil % 77.6 % (47-70); Platelet Count 658 K/mm3 (150-450); RBC Distribution Width CV 14.6 % (11.6-14.6); RBC Distribution Width SD 42.3 fl (35.1-43.9); Red Blood Count 5.76 M/mm3 (4.6-6.2); White Blood Count 12.2 K/mm3 (4.4-11.0)
[2020-04-04 04:14] VITALS: RESP 16
[2020-04-04 04:14] LABS: Alcohol, Blood (Medical)-Serum < 3.0 mg/dL; Anion Gap 3 (5-15); BUN 10 mg/dL (7-18); BUN/Creat Ratio 12.3 RATIO (10-20); Calcium,Total 9.4 mg/dL (8.5-10.1); Chloride 103 mmol/L (98-107); Creatinine, Serum 0.82 mg/dL (0.70-1.30); EST Glomerular Filtration Rate 119 mL/min (>60); Est Glom Filt Rate - Afr Amer 144 mL/min (>60); Glucose 110 mg/dL (74-106); Potassium 3.7 mmol/L (3.5-5.1); Sodium Level 138 mmol/L (136-145)
[2020-04-04 05:39] LABS: Amphetamine Urine VISTA NEGATIVE (<1000 ng/mL); Barbiturate Urine VISTA NEGATIVE (< 200 ng/mL); Benzodiazepine Urine VISTA NEGATIVE (< 200 ng/mL); Cocaine Urine VISTA NEGATIVE (< 300 ng/mL); Ecstacy Urine VISTA NEGATIVE (< 500 ng/mL); Methadone Urine VISTA NEGATIVE (< 300 ng/mL); PCP Urine VISTA NEGATIVE (< 25 ng/mL); THC Urine VISTA NEGATIVE (< 50 ng/mL); Vista UDS pH Range 7
--- NOTE | 2020-04-04 07:37 | NURSING ---
FAXED CHART TO [facility]
--- NOTE | 2020-04-04 09:44 | NURSING ---
JOANNE, CRISIS, TALKING TO PATIENT ON PHONE
[2020-04-04 10:20] VITALS: BP 122/79; PULSE 83; RESP 16; O2SAT 99
--- NOTE | 2020-04-04 11:28 | NURSING ---
FAXED PINK SLIP AND DOCTORS NOTE TO CRISIS
--- NOTE | 2020-04-04 11:41 | CM.ED ---
SOCIAL WORK Spoke with Joseline from Crisis. Plan is for placement. Joseline to type up assessment and begin referral process for inpatient psych hospitalization. [place] has been faxed by ED ward secretary. Del [place], MECHANIC RECOVERY, INHALATION THERAPIST
[2020-04-04 12:00] VITALS: RESP 16
[2020-04-04 13:00] VITALS: BP 129/79; PULSE 85; RESP 16; O2SAT 97
[2020-04-04 15:00] VITALS: RESP 16
--- NOTE | 2020-04-04 15:06 | CM.ED ---
SOCIAL WORK Call from Zoraida with Crisis. Patient accepted to [facility] by Dr. Paulson to the ICU. Nurse to call report to option 1. Java Programmer to set up transport. Nurse updated. Del [place], TRAIN STATION SERVER, AUTO TRANSMISSION MECHANIC
--- NOTE | 2020-04-04 15:14 | NURSING ---
CALLED FOR TRANSPORT.
--- NOTE | 2020-04-04 16:11 | ED.RN ---
transport at bedside, report given. care assumed by Physicians transport.
== END 2020-04-04 16:13 ==
PROVIDERS: Emergency Provider Emergency Medicine; PCP Family Medicine
DX: F25.9 Schizoaffective disorder, unspecified (principal); Z88.1 Allergy status to other antibiotic agents; Z88.2 Allergy status to sulfonamides; Z88.8 Allergy status to other drugs, medicaments and biological substances; J02.9 Acute pharyngitis, unspecified
CPT/HCPCS: 80048; 80307; 80320; 82962; 85025; 99285; G0480

== ENCOUNTER 2020-06-03 16:24 | Emergency (ER) | payer MEDICAID, SELFPAY ==
[2020-06-03 16:25] VITALS: BP 160/105; PULSE 136; RESP 20; TEMP 37.4; O2SAT 98
[2020-06-03 16:26] VITALS: BP 160/105; PULSE 136; RESP 20; TEMP 37.4; O2SAT 98; BMI 22.9
--- NOTE | 2020-06-03 16:36 | EKG12_ITS ---
Test Reason : MHT Blood Pressure : / mmHG Vent. Rate : 118 BPM Atrial Rate : 118 BPM P-R Int : 172 ms QRS Dur : 088 ms QT Int : 342 ms P-R-T Axes : 058 014 014 degrees QTc Int : 479 ms Sinus tachycardia Otherwise normal ECG Confirmed by MOHSEN VIGIL, CRISTINO ([id number]), online editor GASTON CHAMBERS ([id number]) on 06/11/2020 12:53:33 P M Referred By: RICHARD Confirmed By:RHONDA CONNOLLY MD
--- NOTE | 2020-06-03 16:37 | ED.VIS.GEN ---
History of Present Illness Chief Complaint: Mental Health Narrative: This patient is a 29-year-old male who presents with acute psychosis. He has a history of multiple similar presentations to this emergency department. Apparently the patient's father called police as the patient was uncontrollable in the resident's. He has not been taking his medications for the past 3 to 4 weeks. Patient was found with pressured speech speaking bizarrely but had stated that he was feeling paranoid. No further history is able to be obtained. Past Medical History - Allergies and Home Meds Allergies/Adverse Reactions: Allergies peanut Allergy (Verified 04/04/20 03:20) Food Allergy sulfamethoxazole [From Bactrim] Allergy (Verified 04/04/20 03:20) Itching trimethoprim [From Bactrim] Allergy (Verified 04/04/20 03:20) Itching haloperidol [From Haldol] Adverse Reaction (Verified 04/04/20 03:20) Other Primary Care Physician: Ham Richard MD [NON-STAFF] - Past Medical History: - - History of psychosis schizoaffective or schizophrenia per prior records. Surgical History: no surgical history Smoking Status: Never smoker Review of Systems ROS: Unable to Obtain Physical Exam Vital Signs/Narrative: Vital Signs Temp Pulse Resp BP Pulse Ox 06/03/20 16:26 99.3 F H 136 H 20 H 160/105 H 98 06/03/20 16:25 99.3 F H 136 H 20 H 160/105 H 98 Inital Vital Signs reviewed: Yes General: Well nourished Head: Normocephalic Eyes: EOMI ENT: Moist mucous membranes Cardiovascular: Regular rhythm, Tachycardia Respiratory: No distress, CTA bilaterally Abdomen: Soft, Nontender Extremities: Nontender Skin: Normal color Neurological: Alert Psychological: - - Patient appears to be acutely psychotic. He is making bizarre repetitive statements. When I entered the room and introduced myself he repetitively stated Dr. villarreal doctor medicine doctor medicine. He then stated that he was going to probe my mind because he is a probist he was then just repetitively stating cat out of the box, cat [id number], cat out of the box. Diagnostic/Tx/Re-eval Laboratory Results 06/03/20 06/03/20 06/03/20 16:40 16:40 16:40 WBC 10.0 RBC 5.76 Hgb 15.8 Hct 47.2 MCV 81.9 MCH 27.4 MCHC 33.5 RDW Std Deviation 40.6 RDW Coeff of Javy 14.0 Plt Count 688 H MPV 9.3 Immature Gran % (Auto) 0.300 Neut % (Auto) 66.2 Lymph % (Auto) 24.9 [place] % (Auto) 6.6 Eos % (Auto) 1.3 Baso % (Auto) 0.7 Absolute Neuts (auto) 6.6 Absolute Lymphs (auto) 2.49 Nucleated RBC % 0 Sodium 139 Potassium 3.3 L Chloride 106 Carbon Dioxide 25.0 Anion Gap 8 BUN 13 Creatinine 1.01 Estim Creat Clear Calc 101.80 Est GFR (MDRD) Af Amer 112 Est GFR (MDRD) Non-Af 93 BUN/Creatinine Ratio 12.9 Glucose 97 Calcium 9.6 Urine Opiates Screen Urine Methadone Screen Ur Barbiturates Screen Ur Phencyclidine Scrn Ur Amphetamines Screen U Methamphetamin-MDMA U Benzodiazepines Scrn Urine Cocaine Screen U Cannabinoids Screen Ur Drug Screen Comment Ethyl Alcohol 8.0 COVID-19 (SHASHANK) 06/03/20 06/03/20 17:04 17:45 WBC RBC Hgb Hct MCV MCH MCHC RDW Std Deviation RDW Coeff of Javy Plt Count MPV Immature Gran % (Auto) Neut % (Auto) Lymph % (Auto) [place] % (Auto) Eos % (Auto) Baso % (Auto) Absolute Neuts (auto) Absolute Lymphs (auto) Nucleated RBC % Sodium Potassium Chloride Carbon Dioxide Anion Gap BUN Creatinine Estim Creat Clear Calc Est GFR (MDRD) Af Amer Est GFR (MDRD) Non-Af BUN/Creatinine Ratio Glucose Calcium Urine Opiates Screen NEGATIVE Urine Methadone Screen NEGATIVE Ur Barbiturates Screen NEGATIVE Ur Phencyclidine Scrn NEGATIVE Ur Amphetamines Screen NEGATIVE U Methamphetamin-MDMA NEGATIVE U Benzodiazepines Scrn NEGATIVE Urine Cocaine Screen NEGATIVE U Cannabinoids Screen NEGATIVE Ur Drug Screen Comment Ethyl Alcohol COVID-19 (SHASHANK) Not Detected - Medical Decision Making Patient underwent diagnostic evaluation as above which is unremarkable. EKG shows sinus tachycardia at a rate of 118. Patient was given 10 mg of intramuscular Geodon for acute psychosis and agitation. Patient is medically cleared. I do feel he meets criteria for involuntary psychiatric hospitalization return for stabilization for acute psychosis. Plan will be transferred. ED Disposition - Plan for ED Patient: Diagnosis: Acute psychosis Referrals: Ham Richard MD [NON-STAFF] -
[2020-06-03 16:48] LABS: Absolute Lymphocyte Count 2.49 X10^3/uL (0.83-4.51); Absolute Neutrophil Count 6.6 X10^3/uL (2.0-7.7); Basophil# 0.07 X10^3/uL; Basophil% 0.7 % (0-1); Eosinophil# 0.13 X10^3/uL; Eosinophils% 1.3 % (0-5); Hematocrit 47.2 % (40-54); Hemoglobin 15.8 g/dL (13.0-16.5); Lymphocyte # 2.49 X10^3/ul (4.0); Lymphocyte % 24.9 % (19-41); Mean Corp Hgb Conc 33.5 g/dL (32-36); Mean Corpuscular Hgb 27.4 pg (27.0-32.0); Mean Corpuscular Volume 81.9 fL (80-94); Mean Platelet Vol. 9.3 fl (6.2-12.0); Monocyte# 0.66 X10^3/uL; Monocyte% 6.6 % (0-10); NRBC Flagged by Analyzer 0 % (0-5); Neutrophil # 6.61 X10^3/uL (2.7-7.7); Neutrophil % 66.2 % (47-70); Platelet Count 688 K/mm3 (150-450); RBC Distribution Width SD 40.6 fl (35.1-43.9); Red Blood Count 5.76 M/mm3 (4.6-6.2)
[2020-06-03] MEDS: Ziprasidone IM 20 MG/ML VIAL 10 MG IM (17:13)
--- NOTE | 2020-06-03 17:17 | CM.ED ---
SOCIAL WORK Informant: Dr. Mercado Reason for Consult: Mental Health Evaluation Chief Compliant: Patient brought in by EMS and [place] [employer] by [employer] for Mental Health Evaluation. Patient with pressured speech, does not answer questions. Patient stating, The cat is the great claw of the universe and can beat the great chess master of the universe, it can take down God. Patient also repeats, the cat is out of the bag, the cat is out of the bag. Marital/Social History: Single Living Situation: Patient currently lives with fatherJose Elias- [phone] Supports/Resources: Patient is connected with services through [facility], however has been non compliant with follow up care. Education/Employment History: Unemployed Mental Health Treatment/History: Schizophrenia. Patient has history of inpatient psychiatric placements. Patient's last placement from [facility] was 04/04/2020. Patient with history of non-compliance with medications. Triggers/Stressors: Unable to assess Coping Skills: Unable to assess Abuse Issues: No prior history from chart review. Substance Abuse History: No prior history from chart review. Risk to Self/Others: Unable to assess. Per conversation with patient's father, patient with violent behavior towards father today. Patient has made homicidal comments in the past. Appearance/General Behavior: disheveled, non-directable Mood/Affect: bizarre, elevated Communication Pattern: pressured, nonsensical, rambling Thought Process: preoccupied Judgment: poor Assessment: Met with patient and Dr. Mercado in room. Introduced role and reason for referral. Patient with repetitive, pressured speech. Patient reporting to Dr. Mercado after introduction doctor of medicine, doctor of medicine, doctor of medicine, I will probe your mind because I am a probist. This worker inquired about patient's living arrangements and follow up with [facility]. Patient did not acknowledge questions and continued to ramble and repeat, the cat is out of the bag, the cat is out of the bag. Call to patient's father, Jose Elias to obtain additional information. Per Jose Elias, patient has been declining mentally over the last 2 months and over the last 2 weeks had become increasingly worse. Jose Elias states patient is not taking medications and became violent and disrespectful to him (father) today. Bill stating does not feel comfortable with patient returning home. Jose Elias states patient has made comments regarding homicidal ideation in the past. Collaboration with Dr. Mercado. Patient requires inpatient psychiatric hospitalization for stabilization. This worker to facilitate placement. Plan: Referral for inpatient psych D. TREVOR [place], TOOTH CLERK
[2020-06-03 17:36] LABS: Anion Gap 8 (5-15); BUN 13 mg/dL (7-18); BUN/Creat Ratio 12.9 RATIO (10-20); Calcium,Total 9.6 mg/dL (8.5-10.1); Chloride 106 mmol/L (98-107); Creatinine, Serum 1.01 mg/dL (0.70-1.30); EST Glomerular Filtration Rate 93 mL/min (>60); Est Glom Filt Rate - Afr Amer 112 mL/min (>60); Glucose 97 mg/dL (74-106); Potassium 3.3 mmol/L (3.5-5.1); Sodium Level 139 mmol/L (136-145)
--- NOTE | 2020-06-03 18:02 | ED.RN ---
ekg,ua and covid sample obtained
[2020-06-03 18:54] LABS: Amphetamine Urine VISTA NEGATIVE (<1000 ng/mL); Barbiturate Urine VISTA NEGATIVE (< 200 ng/mL); Benzodiazepine Urine VISTA NEGATIVE (< 200 ng/mL); Cocaine Urine VISTA NEGATIVE (< 300 ng/mL); Ecstacy Urine VISTA NEGATIVE (< 500 ng/mL); Methadone Urine VISTA NEGATIVE (< 300 ng/mL); PCP Urine VISTA NEGATIVE (< 25 ng/mL); THC Urine VISTA NEGATIVE (< 50 ng/mL); Vista UDS pH Range 5
--- NOTE | 2020-06-03 19:00 | CM.ED ---
SOCIAL WORK Referral called and faxed to [facility]. Will fax COVID results once received. Pending review at this time. Del [place], OPHTHALMOLOGY TECHNICIAN, PROCUREMENT CONSULTANT
[2020-06-03 19:24] VITALS: RESP 18
[2020-06-03 20:44] LABS: Probe Check PASS; Specimen Processing Control PASS
--- NOTE | 2020-06-03 21:00 | CM.ED ---
SOCIAL WORK COVID negative results faxed to [facility] along with [facility] per request. Awaiting accepting information at this time. Del [place], BRIDGE TEACHER, SECURITIES VAULT SUPERVISOR
--- NOTE | 2020-06-03 21:10 | CM.ED ---
SOCIAL WORK Patient accepted to [facility] by Dr. Galvez. Nurse to call report to . Patient to go to room 200A. [place] to set up transport. Plan: Jose Colorado, WARE DRESSER, KILN PLACER
[2020-06-03 21:26] VITALS: BP 138/86; PULSE 94; RESP 18; O2SAT 99
[2020-06-03 22:29] VITALS: RESP 18
== END 2020-06-03 23:03 ==
PROVIDERS: Emergency Provider Emergency Medicine; PCP Family Medicine
DX: F23 Brief psychotic disorder (principal); Z88.1 Allergy status to other antibiotic agents; Z88.2 Allergy status to sulfonamides; Z88.8 Allergy status to other drugs, medicaments and biological substances; Z91.14 Patient's other noncompliance with medication regimen
CPT/HCPCS: 80048; 80307; 80320; 85025; 87635; 93005; 96372; 99284; G0480; J3486; U0003

== ENCOUNTER 2020-06-25 08:58 | Emergency (ER) | payer MEDICAID, SELFPAY ==
[2020-06-25 08:59] VITALS: TEMP 36.6; BMI 22.6
--- NOTE | 2020-06-25 09:10 | ED.VISSUMM ---
- ER Visit Summary Date of Service: 06/25/20 Chief Complaint: [Abnormal behavior] History of Present Illness: The patient is a 29 M [presents to the emergency department via police escort. Patient was found walking on the side of the road. Patient manic and delusional. Patient with incoherent thoughts. Patient brought to the emergency department for further evaluation. Patient is a very poor historian and cannot give much history. Patient does have history of psychosis and schizoaffective disorder. It is unclear what medications the patient takes or if he has been compliant. Patient believes that he is Frank Judson and he was walking to [place]. Patient states that it is a miracle that he does not have blisters on one of his feet. Patient also made statements of people being murdered and being chopped up.] Physical Examination: [HEENT-PERRLA, EOMI. Cranial nerves II through XII grossly intact. TMs clear. Mucous membranes moist. No adenopathy. Patient with flight of ideas and incoherent thoughts. Will not answer certain questions but keeps repeating himself. Cardiovascular-regular rate and rhythm without murmur or ectopy Lungs-clear to auscultation, chest wall stable without crepitus or subcu emphysema Abdomen-normoactive bowel sounds, soft, nontender, no rebound or rigidity, no peritoneal signs. Extremities-intact ?4, normal range of motion, normal pulses, atraumatic] Test Results: [CBC with differential obtained showed a magna 15, hemoglobin 18, hematocrit 55, platelets 879. Chemistries unremarkable. Tox screen pending. Alcohol was negative.] Emergency Department Course and Treatment: [Patient was seen by crisis while in the emergency department and they are familiar with the patient. Apparently patient was recently diagnosed from a psychiatric facility. They will attempt to find placement for patient once again.] Treatment Plan: [Transfer to psychiatric facility.] I will recommend the patient follow-up with heme-onc once discharge regarding his chronically elevated platelets. Disposition: [Transfer to psychiatric facility] Impression: [Paranoid schizophrenia-decompensated] This note was generated with Genomaticaation software. It may contain incorrect words, spelling, and punctuation that were not noted in review of the chart prior to signing ED Disposition - Plan for ED Patient: Referrals: Dennis Olivas MD [Primary Care Provider] -
[2020-06-25 09:43] LABS: Absolute Lymphocyte Count 2.47 X10^3/uL (0.83-4.51); Absolute Neutrophil Count 10.9 X10^3/uL (2.0-7.7); Basophil% 0.7 % (0-1); Eosinophil# 0.13 X10^3/uL; Eosinophils% 0.9 % (0-5); Hematocrit 54.8 % (40-54); Lymphocyte # 2.47 X10^3/ul (4.0); Lymphocyte % 16.5 % (19-41); Mean Corp Hgb Conc 32.8 g/dL (32-36); Mean Corpuscular Hgb 27.3 pg (27.0-32.0); Mean Corpuscular Volume 83.2 fL (80-94); Monocyte# 1.39 X10^3/uL; Monocyte% 9.3 % (0-10); NRBC Flagged by Analyzer 0 % (0-5); Neutrophil # 10.88 X10^3/uL (2.7-7.7); Neutrophil % 72.3 % (47-70); POSITIVE COUNT YES; Platelet Count 879 K/mm3 (150-450); RBC Distribution Width CV 13.9 % (11.6-14.6); RBC Distribution Width SD 42.2 fl (35.1-43.9); Red Blood Count 6.59 M/mm3 (4.6-6.2)
[2020-06-25 09:47] LABS: Differential Indicated SCAN CRITERIA MET
[2020-06-25 09:51] VITALS: BP 142/93; PULSE 74; RESP 16; TEMP 36.8; O2SAT 99
[2020-06-25 09:53] LABS: Anion Gap 14 (5-15); BUN 15 mg/dL (7-18); BUN/Creat Ratio 12.9 RATIO (10-20); Calcium,Total 9.8 mg/dL (8.5-10.1); Chloride 98 mmol/L (98-107); Creatinine, Serum 1.16 mg/dL (0.70-1.30); EST Glomerular Filtration Rate 79 mL/min (>60); Est Glom Filt Rate - Afr Amer 96 mL/min (>60); Estimated Creatinine Clearance 85.16 ml/min; Glucose 91 mg/dL (74-106); Potassium 3.3 mmol/L (3.5-5.1); Sodium Level 134 mmol/L (136-145)
[2020-06-25 10:08] LABS: Platelet Estimate MKD INC (ADEQ)
[2020-06-25 11:39] VITALS: RESP 16
--- NOTE | 2020-06-25 12:15 | CM.ED ---
SOCIAL WORK Collaboration with staff and Dr. Danielson. Patient medically cleared, still awaiting urine sample, patient refusing. Crisis to evaluate for disposition. Call to [facility] with crisis. Updated on patient's status. Referral information faxed. Plan: Pending Crisis evaluation.
--- NOTE | 2020-06-25 14:16 | CM.ED ---
SOCIAL WORK Ayla from Crisis here. Per Ayla, plan for inpatient psych hospitalization. Medical team updated. Del [place], DIRECTOR OF ENTERTAINMENT, STOPPER SETTER
[2020-06-25] MEDS: Ziprasidone IM 20 MG/ML VIAL IM (15:35)
--- NOTE | 2020-06-25 15:42 | ED.DEP ---
ED Disposition - Plan for ED Patient: Instructions: ED Schizophrenia General, Platelets Referrals: Dennis Olivas MD [Primary Care Provider] - Gideon Alonso DO [STAFF PHYSICIAN] - 5-7 Days
[2020-06-25 16:11] LABS: Amphetamine Urine VISTA NEGATIVE (<1000 ng/mL); Barbiturate Urine VISTA NEGATIVE (< 200 ng/mL); Benzodiazepine Urine VISTA NEGATIVE (< 200 ng/mL); Cocaine Urine VISTA NEGATIVE (< 300 ng/mL); Ecstacy Urine VISTA NEGATIVE (< 500 ng/mL); Methadone Urine VISTA NEGATIVE (< 300 ng/mL); PCP Urine VISTA NEGATIVE (< 25 ng/mL); THC Urine VISTA NEGATIVE (< 50 ng/mL); Vista UDS pH Range 6
[2020-06-25 16:18] VITALS: BP 132/70; PULSE 70; RESP 16; O2SAT 98
--- NOTE | 2020-06-25 18:04 | CM.ED ---
SOCIAL WORK Updated by Marisbael with Crisis, referral pending at [facility]. Del [place], EVS ATTENDANT, COAL WEIGHER
[2020-06-25 18:16] VITALS: RESP 14
[2020-06-25 19:10] VITALS: BP 128/72; PULSE 78; RESP 16; O2SAT 98
[2020-06-29 14:19] LABS: Pathologist Review Reviewed
== END 2020-06-25 20:26 ==
PROVIDERS: Emergency Provider Emergency Medicine; PCP Family Medicine
DX: F20.0 Paranoid schizophrenia (principal); D47.3 Essential (hemorrhagic) thrombocythemia
CPT/HCPCS: 36415; 80048; 80307; 80320; 85025; 99281; 99285; G0480; J3486

== ENCOUNTER 2020-10-26 19:44 | Emergency (ER) | payer MEDICAID, SELFPAY ==
[2020-10-26 19:47] VITALS: BP 172/96; PULSE 108; RESP 20; TEMP 36.9; O2SAT 98; BMI 20.2
[2020-10-26 19:53] VITALS: BP 149/88
[2020-10-26 20:22] LABS: Absolute Lymphocyte Count 3.27 X10^3/uL (0.83-4.51); Absolute Neutrophil Count 13.2 X10^3/uL (2.0-7.7); Basophil# 0.13 X10^3/uL; Basophil% 0.7 % (0-1); Eosinophil# 0.28 X10^3/uL; Eosinophils% 1.5 % (0-5); Hematocrit 47.6 % (40-54); Hemoglobin 15.8 g/dL (13.0-16.5); Lymphocyte # 3.27 X10^3/ul (4.0); Mean Corp Hgb Conc 33.2 g/dL (32-36); Mean Corpuscular Hgb 28.1 pg (27.0-32.0); Mean Corpuscular Volume 84.5 fL (80-94); Mean Platelet Vol. 9.2 fl (6.2-12.0); Monocyte# 1.25 X10^3/uL; Monocyte% 6.9 % (0-10); NRBC Flagged by Analyzer 0 % (0-5); Neutrophil # 13.17 X10^3/uL (2.7-7.7); Neutrophil % 72.5 % (47-70); POSITIVE COUNT YES; RBC Distribution Width CV 13.3 % (11.6-14.6); RBC Distribution Width SD 41.4 fl (35.1-43.9); Red Blood Count 5.63 M/mm3 (4.6-6.2); White Blood Count 18.2 K/mm3 (4.4-11.0)
[2020-10-26 20:39] LABS: Anion Gap 10 (5-15); BUN 9 mg/dL (7-18); BUN/Creat Ratio 9.5 RATIO (10-20); Calcium,Total 9.7 mg/dL (8.5-10.1); Chloride 101 mmol/L (98-107); Creatinine, Serum 0.95 mg/dL (0.70-1.30); EST Glomerular Filtration Rate 99 mL/min (>60); Est Glom Filt Rate - Afr Amer 120 mL/min (>60); Estimated Creatinine Clearance 106.62 ml/min; Glucose 95 mg/dL (74-106); Potassium 3.2 mmol/L (3.5-5.1); Sodium Level 136 mmol/L (136-145)
[2020-10-26 20:44] LABS: Differential Indicated SCAN CRITERIA MET; Platelet Count 970 K/mm3 (150-450)
[2020-10-26 20:50] LABS: Differential Comment SCANNED; Platelet Estimate MKD INC (ADEQ)
--- NOTE | 2020-10-26 20:56 | RAD_ITS ---
STUDY: X-RAY CHEST REASON FOR EXAM: Male, 30 years old. Mental health eval. TECHNIQUE: Frontal view COMPARISON: 09/03/2019 FINDINGS: The lungs are clear and expanded. There is no demonstrated pleural abnormality. Normal size heart. Normal mediastinum and david. Normal visualized pulmonary arteries. Normal visualized aortic arch and descending thoracic aorta. Normal visualized thoracic spine. Normal visualized ribs, clavicles, and shoulders. There is no demonstrated abnormality of the visualized soft tissue structures of the upper abdomen. RAD/Chest 1 View (Portable) IMPRESSION: Normal x-ray examination of the chest. Electronically Signed: Skip Bell DO at 22:09 EST Tel [phone], Service support ,
[2020-10-26] MEDS: 0.9% Normal Saline 1,000 ML 999 ML IV (21:09)
[2020-10-26 21:11] LABS: Alcohol, Blood (Medical)-Serum < 3.0 mg/dL
--- NOTE | 2020-10-26 21:19 | ED.DCSUM_ITS ---
- ER Visit Summary Date of Service: 10/26/20 Chief Complaint: Agitated History of Present Illness: The patient is a 30 M who has a history of schizophrenia. He reports that he is going to [facility] for being for being chromatid eyes. Squad reports patient has not been taking his medications. Physical Examination: Vitals: Stable. Afebrile. General: Well-nourished and well-developed. Head: Normocephalic atraumatic. Neck: Supple, no lymphadenopathy. No JVD. Nontender. Cardiovascular: Tachycardic regular rhythm. No murmurs. Respiratory: No respiratory distress. Clear to auscultation bilaterally. Abdominal: Soft, nontender, nondistended, normal bowel sounds. No guarding, rebound, or peritoneal signs. Back: Nontender. Extremities: Nontender, no edema. Skin: Normal color, no rash. Neurologic: Alert. Cranial nerves II through XII are intact. Normal strength and sensation. Psych: Patient is irritable and labile. He has incoherent thoughts and delusions. I am unable to get a reliable exam. Test Results: CBC shows a white count of 11.2 with 970 platelets, 73 segmented neutrophils, and 18 lymphocytes. Chem-7 shows a potassium of 3.2. Covid is negative. Alcohol is negative. Tox screen is negative. Clinical Impression(s) from Imaging Studies Chest X-Ray 10/26/20 20:56 IMPRESSION: Normal x-ray examination of the chest. Electronically Signed: Skip Bell DO at 22:09 EST Tel [phone], Service support , Emergency Department Course and Treatment: Patient had an IV placed. He is given liter normal saline. He is resting comfortably. Treatment Plan: Patient will be discussed with the counseling center. He clearly is not able to care for himself and will require psychiatric hospitalization. He is medically cleared. Disposition: Pending Impression: 1. Schizophrenia. 2. Psychosis. 3. Thrombocytophilia, chronic. This note was generated with Campus Quadation software. It may contain incorrect words, spelling, and punctuation that were not noted in review of the chart prior to signing ED Disposition - Plan for ED Patient: Referrals: Dennis Olivas MD [Primary Care Provider] -
--- NOTE | 2020-10-26 21:52 | ED.RN ---
patient refusing to speak to crisis at this time
--- NOTE | 2020-10-26 22:21 | ED.RN ---
PT D/C HIS OWN IV. IV FLUIDS SATURATED FLOOR. PT IV SITE COVERED WITH 2X2 GAUZE AND PAPER TAPE. ANGIO CATH INTACT. DR. KLEIN INFORMED. NO NEW ORDERS AT THIS TIME.
[2020-10-26 22:44] LABS: Amphetamine Urine VISTA NEGATIVE (<1000 ng/mL); Barbiturate Urine VISTA NEGATIVE (< 200 ng/mL); Benzodiazepine Urine VISTA NEGATIVE (< 200 ng/mL); Cocaine Urine VISTA NEGATIVE (< 300 ng/mL); Ecstacy Urine VISTA NEGATIVE (< 500 ng/mL); Methadone Urine VISTA NEGATIVE (< 300 ng/mL); PCP Urine VISTA NEGATIVE (< 25 ng/mL); THC Urine VISTA NEGATIVE (< 50 ng/mL); Vista UDS pH Range 6
[2020-10-26 23:05] VITALS: RESP 16
[2020-10-26] MEDS: Ziprasidone IM 20 MG/ML VIAL IM (23:31)
[2020-10-27 00:07] VITALS: BP 146/85; PULSE 130; RESP 16; O2SAT 98
[2020-10-27] MEDS: DiphenhydrAMINE 25 MG Capsule 50 MG PO (00:20)
[2020-10-27] MEDS: LORazepam 1 MG Tablet PO (00:20)
--- NOTE | 2020-10-27 00:36 | ED.RN ---
patient has been formally accepted to [facility] will need to watch patient till 329 and call back
[2020-10-27 02:14] VITALS: RESP 14
[2020-10-27 03:16] VITALS: RESP 14
--- NOTE | 2020-10-27 03:49 | ED.RN ---
[facility] called and updated on condition and status at this time. they will talk with physician at this time and call back
[2020-10-27 05:23] VITALS: BP 105/68; PULSE 85; RESP 14; O2SAT 97
[2020-10-27 06:17] VITALS: RESP 14
[2020-10-27 06:18] VITALS: BP 105/68; PULSE 74; RESP 16; TEMP 37.1; O2SAT 98
--- NOTE | 2020-10-27 07:43 | ED.RN ---
ems in ED
[2020-10-27 14:22] LABS: Pathologist Review Reviewed
== END 2020-10-27 07:49 | disposition home or self-care (01) ==
LOC: ED 20:16
PROVIDERS: Emergency Provider Emergency Medicine; PCP Family Medicine
DX: F20.9 Schizophrenia, unspecified (principal); Z91.14 Patient's other noncompliance with medication regimen; D69.6 Thrombocytopenia, unspecified
CPT/HCPCS: 71045; 80048; 80307; 82077; 85025; 87426; 96360; 96361; 96372; 99285; J3486

== ENCOUNTER 2020-11-07 23:48 | Emergency (ER) | payer MEDICAID, SELFPAY ==
[2020-11-07 23:49] VITALS: BP 102/96; PULSE 102; RESP 16; TEMP 36.6; O2SAT 96; BMI 24.8
--- NOTE | 2020-11-07 23:58 | ED.VIS.PSYCH ---
History of Present Illness Chief Complaint: Mental Health Informant: Patient Context: found wandering tonight Associated Symptoms: Flight of Ideas, - - delusional Narrative: Known schizophrenic who was found wandering around aimlessly and brought to the emergency department by police. He states he has not been taking any medications, and if you look at your records you will see that I was previously diagnosed with schizophrenia because? the PRABHA? History is significantly limited because the patient has very disorganized thinking and flight of ideas and mutters at low volume, fast speeds, going from 1 subject/topic to the next. He talks about the fact that he was living with some family but mom had to leave them because she could not deal with the fact that he was able to take a Woody Gt novel and read the entire thing and 30 minutes? To the fact that he has a filling in his tooth that was placed there by Jose Elias Sanchez who is a billionaire? He has telepathic directors [place] as he quickly transitions to talking with a [place] accent and discussing the movie Ambitious Minds, imitating Gian Turner. He denies any physical complaints or illnesses. - Past Medical History (1) Schizophrenia Status: Chronic Past Medical History - Allergies and Home Meds Allergies/Adverse Reactions: Allergies haloperidol [From Haldol] Allergy (Verified 11/07/20 23:50) Other peanut Allergy (Verified 11/07/20 23:50) Food Allergy sulfamethoxazole [From Bactrim] Allergy (Verified 11/07/20 23:50) Itching trimethoprim [From Bactrim] Allergy (Verified 11/07/20 23:50) Itching Primary Care Physician: Dennis Olivas MD [Primary Care Provider] - Surgical History: no surgical history Smoking Status: Unknown if ever smoked Review of Systems General: Denies: Chills, Fever Eyes: Denies: Visual changes - bilaterally, Diplopia ENT: Reports: - - No dental pain. Denies: Rhinorrhea, Sore throat Cardiovascular: Denies: Chest pain, Palpitations Respiratory: Denies: Dyspnea, Cough, Dyspnea on exertion Gastrointestinal: Denies: Abdominal pain, Nausea, Vomiting, Diarrhea, Hematochezia Genitourinary: Denies: Dysuria, Hematuria, Frequency Musculoskeletal: Denies: Myalgias, Neck pain, Back pain, Extremity Pain Skin: Denies: Rash, Wounds Neurological: Denies: Headache, Weakness, Numbness Physical Exam Vital Signs/Narrative: Vital Signs Temp Pulse Resp BP Pulse Ox 11/07/20 23:49 98 F 102 H 16 102/96 H 96 Inital Vital Signs reviewed: Yes General: Well nourished, Well developed, - - NAD Head: Normocephalic, Atraumatic Eyes: Perrl, EOMI ENT: Moist mucous membranes, No rhinorrhea, - - No trismus. Nontender dentition with left mandibular molar fillings intact. Normal gingiva. Normal oropharynx otherwise. Neck: Supple, Nontender, No lymphadenopathy Cardiovascular: Regular rate, Regular rhythm, No murmurs Respiratory: No distress, CTA bilaterally, Chest nontender Abdomen: Soft, Nontender, Nondistended, Normal bowel sounds Back: Nontender, Normal Inspection Extremities: Nontender, No Edema Skin: Normal color, No rash Neurological: Alert, Oriented x3, Cranial nerves II-XII grossly intact, Normal Strength, Normal Sensation, Normal Gait Psych: Normal Appearance, Flight of Ideas, Incoherent thoughts, Delusions, Poor Insight, Limited Judgement. Negative for: Suicidal thoughts, Homicidal thoughts, Hallucinations Diagnostic/Tx/Re-eval Laboratory Tests 11/08/20 11/08/20 11/08/20 Range/Units 00:07 00:00 00:00 WBC (4.4-11.0) K/mm3 RBC (4.6-6.2) M/mm3 Hgb (13.0-16.5) g/dL Hct (40-54) % MCV (80-94) fL MCH (27.0-32.0) pg MCHC (32-36) g/dL RDW Std Deviation (35.1-43.9) fl RDW Coeff of Javy (11.6-14.6) % Plt Count (150-450) K/mm3 MPV (6.2-12.0) fl Immature Gran % (Auto) (0.0-0.9) % Neut % (Auto) (47-70) % Lymph % (Auto) (19-41) % [place] % (Auto) (0-10) % Eos % (Auto) (0-5) % Baso % (Auto) (0-1) % Absolute Neuts (auto) (2.0-7.7) X10^3/uL Absolute Lymphs (auto) (0.83-4.51) X10^3/uL Nucleated RBC % (0-5) % Differential Comment Diff Path Review Sodium 139 (136-145) mmol/L Potassium 3.6 (3.5-5.1) mmol/L Chloride 104 (98-107) mmol/L Carbon Dioxide 28.0 (21.0-32.0) mmol/L Anion Gap 7 (5-15) BUN 9 (7-18) mg/dL Creatinine 0.80 (0.70-1.30) mg/dL Estim Creat Clear Calc 122.95 ml/min Est GFR (MDRD) Af Amer 147 (>60) mL/min Est GFR (MDRD) Non-Af 121 (>60) mL/min BUN/Creatinine Ratio 11.3 (10-20) RATIO Glucose 106 (74-106) mg/dL Calcium 9.5 (8.5-10.1) mg/dL Total Bilirubin 0.80 (0.20-1.00) mg/dL AST 72 H (15-37) U/L ALT 178 H (16-61) U/L Alkaline Phosphatase 104 (45-117) U/L Total Protein 7.5 (6.4-8.2) g/dL Albumin 4.1 (3.2-5.0) g/dL Globulin 3.4 (2.2-4.2) g/dL Albumin/Globulin Ratio 1.2 (0.9-2.4) RATIO Urine Opiates Screen NEGATIVE (< 300 ng/mL) Urine Methadone Screen NEGATIVE (< 300 ng/mL) Ur Barbiturates Screen NEGATIVE (< 200 ng/mL) Ur Phencyclidine Scrn NEGATIVE (< 25 ng/mL) Ur Amphetamines Screen NEGATIVE (<1000 ng/mL) U Methamphetamin-MDMA NEGATIVE (< 500 ng/mL) U Benzodiazepines Scrn NEGATIVE (< 200 ng/mL) Urine Cocaine Screen NEGATIVE (< 300 ng/mL) U Cannabinoids Screen NEGATIVE (< 50 ng/mL) Ur Drug Screen Comment Ethyl Alcohol < 3.0 mg/dL 11/08/20 Range/Units 00:00 WBC 9.8 (4.4-11.0) K/mm3 RBC 5.55 (4.6-6.2) M/mm3 Hgb 15.7 (13.0-16.5) g/dL Hct 47.6 (40-54) % MCV 85.8 (80-94) fL MCH 28.3 (27.0-32.0) pg MCHC 33.0 (32-36) g/dL RDW Std Deviation 41.2 (35.1-43.9) fl RDW Coeff of Javy 13.2 (11.6-14.6) % Plt Count 819 H* (150-450) K/mm3 MPV 9.2 (6.2-12.0) fl Immature Gran % (Auto) 0.400 (0.0-0.9) % Neut % (Auto) 57.2 (47-70) % Lymph % (Auto) 27.7 (19-41) % [place] % (Auto) 10.1 H (0-10) % Eos % (Auto) 3.7 (0-5) % Baso % (Auto) 0.9 (0-1) % Absolute Neuts (auto) 5.6 (2.0-7.7) X10^3/uL Absolute Lymphs (auto) 2.71 (0.83-4.51) X10^3/uL Nucleated RBC % 0 (0-5) % Differential Comment SCANNED Diff Path Review May foll Sodium (136-145) mmol/L Potassium (3.5-5.1) mmol/L Chloride (98-107) mmol/L Carbon Dioxide (21.0-32.0) mmol/L Anion Gap (5-15) BUN (7-18) mg/dL Creatinine (0.70-1.30) mg/dL Estim Creat Clear Calc ml/min Est GFR (MDRD) Af Amer (>60) mL/min Est GFR (MDRD) Non-Af (>60) mL/min BUN/Creatinine Ratio (10-20) RATIO Glucose (74-106) mg/dL Calcium (8.5-10.1) mg/dL Total Bilirubin (0.20-1.00) mg/dL AST (15-37) U/L ALT (16-61) U/L Alkaline Phosphatase (45-117) U/L Total Protein (6.4-8.2) g/dL Albumin (3.2-5.0) g/dL Globulin (2.2-4.2) g/dL Albumin/Globulin Ratio (0.9-2.4) RATIO Urine Opiates Screen (< 300 ng/mL) Urine Methadone Screen (< 300 ng/mL) Ur Barbiturates Screen (< 200 ng/mL) Ur Phencyclidine Scrn (< 25 ng/mL) Ur Amphetamines Screen (<1000 ng/mL) U Methamphetamin-MDMA (< 500 ng/mL) U Benzodiazepines Scrn (< 200 ng/mL) Urine Cocaine Screen (< 300 ng/mL) U Cannabinoids Screen (< 50 ng/mL) Ur Drug Screen Comment Ethyl Alcohol mg/dL Patient was here less than 1 week ago with similar presentation and was disposition to psychiatric hospital, which I think is appropriate now as well. The details of his recent admission are unknown, history regarding this is impossible from the patient. Labs and toxicology were obtained, his TSH was normal less than 1 week ago so I felt it was futile to repeat that. He is medically cleared with an unremarkable work-up with the exception of thrombocythemia, which he has a history of, and barely nonspecifically elevated AST and ALT. These are not indicative of any type of acute hepatitis or anything else acute given his normal physical exam. Crisis contacted for further evaluation and psychiatric disposition. Patient recently admitted and discharged to/from [facility], they accepted him back. ED Disposition - Plan for ED Patient: Disposition: Psychiatric Hospital or Unit Diagnosis: Schizophrenia, Acute psychosis Referrals: Dnenis Olivas MD [Primary Care Provider] -
[2020-11-08] VITALS (8 sets, daily range): BP systolic 133; BP diastolic 79; PULSE 89–92; RESP 14–18; TEMP 36.4; O2SAT 97–98
[2020-11-08 00:04] LABS: Absolute Lymphocyte Count 2.71 X10^3/uL (0.83-4.51); Absolute Neutrophil Count 5.6 X10^3/uL (2.0-7.7); Basophil# 0.09 X10^3/uL; Basophil% 0.9 % (0-1); Eosinophil# 0.36 X10^3/uL; Eosinophils% 3.7 % (0-5); Hematocrit 47.6 % (40-54); Hemoglobin 15.7 g/dL (13.0-16.5); Lymphocyte # 2.71 X10^3/ul (4.0); Lymphocyte % 27.7 % (19-41); Mean Corpuscular Hgb 28.3 pg (27.0-32.0); Mean Corpuscular Volume 85.8 fL (80-94); Mean Platelet Vol. 9.2 fl (6.2-12.0); Monocyte# 0.99 X10^3/uL; Monocyte% 10.1 % (0-10); NRBC Flagged by Analyzer 0 % (0-5); Neutrophil # 5.58 X10^3/uL (2.7-7.7); Neutrophil % 57.2 % (47-70); POSITIVE COUNT YES; RBC Distribution Width CV 13.2 % (11.6-14.6); RBC Distribution Width SD 41.2 fl (35.1-43.9); Red Blood Count 5.55 M/mm3 (4.6-6.2); White Blood Count 9.8 K/mm3 (4.4-11.0)
[2020-11-08 00:12] LABS: Differential Indicated SCAN CRITERIA MET; Platelet Count 819 K/mm3 (150-450)
[2020-11-08 00:24] LABS: Amphetamine Urine VISTA NEGATIVE (<1000 ng/mL); Barbiturate Urine VISTA NEGATIVE (< 200 ng/mL); Benzodiazepine Urine VISTA NEGATIVE (< 200 ng/mL); Cocaine Urine VISTA NEGATIVE (< 300 ng/mL); Ecstacy Urine VISTA NEGATIVE (< 500 ng/mL); Methadone Urine VISTA NEGATIVE (< 300 ng/mL); PCP Urine VISTA NEGATIVE (< 25 ng/mL); THC Urine VISTA NEGATIVE (< 50 ng/mL); Vista UDS pH Range 5
[2020-11-08 00:32] LABS: Alcohol, Blood (Medical)-Serum < 3.0 mg/dL
[2020-11-08 00:35] LABS: ALB/GLOB Ratio 1.2 RATIO (0.9-2.4); AST(SGOT) 72 U/L (15-37); Alanine Aminotransfer ALT/SGPT 178 U/L (16-61); Albumin, Serum 4.1 g/dL (3.2-5.0); Alkaline Phosphatase 104 U/L (45-117); BUN 9 mg/dL (7-18); BUN/Creat Ratio 11.3 RATIO (10-20); Calcium,Total 9.5 mg/dL (8.5-10.1); Chloride 104 mmol/L (98-107); EST Glomerular Filtration Rate 121 mL/min (>60); Est Glom Filt Rate - Afr Amer 147 mL/min (>60); Estimated Creatinine Clearance 122.95 ml/min; Globulin 3.4 g/dL (2.2-4.2); Glucose 106 mg/dL (74-106); Potassium 3.6 mmol/L (3.5-5.1); Protein, Total 7.5 g/dL (6.4-8.2); Sodium Level 139 mmol/L (136-145)
[2020-11-08 00:36] LABS: Anion Gap 7 (5-15)
[2020-11-08 00:37] LABS: Differential Comment SCANNED
--- NOTE | 2020-11-08 00:59 | ED.RN ---
iftikhar notified crisis reguarding pt.
--- NOTE | 2020-11-08 02:49 | ED.RN ---
[facility]ISIS CALLED AND HAD PUT A REFERRAL IN FOR THE PATIENT TO GO TO [facility] IN [place].
--- NOTE | 2020-11-08 02:50 | ED.RN ---
carrie dolan called crisis to find out status of pt.they informed her information forward to [facility].
--- NOTE | 2020-11-08 03:34 | ED.RN ---
attempt to call report and GASTON FROM [facility] ASKED THAT THIS NURSE CALLS BACK IN 30 MINUTES.PLAN TO CALL BACK.
[2020-11-09 14:46] LABS: Pathologist Review Reviewed
== END 2020-11-08 07:23 ==
LOC: ED 11-08 00:30
PROVIDERS: Emergency Provider Emergency Medicine; PCP Family Medicine
DX: F20.9 Schizophrenia, unspecified (principal); Z88.1 Allergy status to other antibiotic agents; Z88.2 Allergy status to sulfonamides; Z88.8 Allergy status to other drugs, medicaments and biological substances
CPT/HCPCS: 80053; 80307; 82077; 85025; 87426; 99285

== ENCOUNTER 2021-02-22 15:36 | Emergency (ER) | payer MEDICAID, SELFPAY ==
[2021-02-22] VITALS (10 sets, daily range): BP systolic 134–146; BP diastolic 68–96; PULSE 64–94; RESP 14–18; TEMP 36.7–37.2; O2SAT 97–98; BMI 25.0
--- NOTE | 2021-02-22 16:13 | EX.ED.VIS.PS ---
HPI HPI - Psych History of Present Illness Chief Complaint: Mental Health Narrative Narrative: Patient arrives by EMS after being reportedly 10 miles outside of town on foot. He has a known history of schizophrenia and apparently has not medicated. Patient states that somebody implanted a chip which stimulated a genocide however he states that nobody was harmed and everybody around was concerned. He states he lives at home with his father and his father knows that he is here because he was on scene when he was picked up. Patient denies any hallucinations. He denies hearing voices. He denies being homicidal or suicidal. [facility] Medical History Schizo-affective psychosis Schizoaffective disorder Home Medications NK 09/03/19 [History Last Taken Unknown] Allergy/AdvReac Type Severity Reaction Status Date / Time haloperidol [From Haldol] Allergy Other Verified 02/22/21 15:40 peanut Allergy Food Verified 02/22/21 15:40 Allergy sulfamethoxazole Allergy Itching Verified 02/22/21 15:40 [From Bactrim] trimethoprim [From Bactrim] Allergy Itching Verified 02/22/21 15:40 Social History Smoking Status: Unknown if ever smoked ROS ROS ED Review of Systems ROS Unobtainable: due to mental condition, due to mental status and other EXAM Physical Exam Const Vital Signs: 02/22/21 15:36 Temperature 99 F Temperature Source Temporal Pulse Rate 94 Respiratory Rate 18 Blood Pressure 146/92 H Blood Pressure Mean 110 Pulse Ox 98 Oxygen Delivery Method Room Air General Appearance ED: Negative for pallor HEENT Reports normocephalic, head/scalp atraumatic and moist mucous membranes Eyes PERRL and EOMs intact bilaterally Neck no lymphadenopathy and supple Chest Wall inspection of chest normal and palpation of chest normal Resp normal respiratory effort and clear to auscultation bilaterally Auscultation: Negative for rales, rhonchi or wheezes Cardio regular rate and regular rhythm GI normal to inspection, nondistended, normoactive bowel sounds and non-distended Auscultation: normoactive bowel sounds Palpation: soft Narrative: Deferred Extremity normal to inspection General Extremety ED: Yes edema and tenderness General Extremity: edema Neuro CN's II-XII intact bilaterally Sensorium / Orientation: alert Motor Exam: strength 5/5 throughout Psych Attitude: No agitated Thought Process: flight of ideas Thought Content: delusion(s) Insight: poor Judgement: poor Skin no rashes or lesions noted and no wounds General Skin Exam: Negative for jaundice or pallor Discharge Plan Triage Chief Complaint: Mental Health ED Provider: Shady Perdomo Dx/Rx/DC Orders Prescriptions: No Action NK RF: 0 Primary Care Provider: Dennis Olivas
[2021-02-22 16:15] LABS: Absolute Lymphocyte Count 2.66 X10^3/uL (0.83-4.51); Absolute Neutrophil Count 6.2 X10^3/uL (2.0-7.7); Eosinophil# 0.26 X10^3/uL; Eosinophils% 2.6 % (0-5); Hematocrit 47.4 % (40-54); Hemoglobin 15.7 g/dL (13.0-16.5); Lymphocyte # 2.66 X10^3/ul (0.83-4.51); Lymphocyte % 26.8 % (19-41); Mean Corp Hgb Conc 33.1 g/dL (32-36); Mean Corpuscular Hgb 27.6 pg (27.0-32.0); Mean Corpuscular Volume 83.5 fL (80-94); Mean Platelet Vol. 9.5 fl (6.2-12.0); Monocyte# 0.69 X10^3/uL; NRBC Flagged by Analyzer 0 % (0-5); Neutrophil # 6.18 X10^3/uL (2.7-7.7); Neutrophil % 62.3 % (47-70); Platelet Count 745 K/mm3 (150-450); RBC Distribution Width CV 13.2 % (11.6-14.6); RBC Distribution Width SD 40.3 fl (35.1-43.9); Red Blood Count 5.68 M/mm3 (4.6-6.2); White Blood Count 9.9 K/mm3 (4.4-11.0)
--- NOTE | 2021-02-22 16:15 | CM.ED ---
SOCIAL WORK Discussed with Dr. Perdomo, plan for Crisis to evaluate once medically cleared. Del Colorado, FOUNDRY MOLDER, NURSE PRACTITIONER ADULT
[2021-02-22] MEDS: Ziprasidone IM 20 MG/ML VIAL IM (16:41)
[2021-02-22 16:43] LABS: Alcohol, Blood (Medical)-Serum < 3.0 mg/dL
[2021-02-22 16:46] LABS: Anion Gap 8 (5-15); BUN 7 mg/dL (7-18); BUN/Creat Ratio 7.6 RATIO (10-20); Calcium,Total 9.3 mg/dL (8.5-10.1); Chloride 105 mmol/L (98-107); Creatinine, Serum 0.93 mg/dL (0.70-1.30); EST Glomerular Filtration Rate 102 mL/min (>60); Est Glom Filt Rate - Afr Amer 124 mL/min (>60); Estimated Creatinine Clearance 98.14 ml/min; Glucose 99 mg/dL (74-106); Potassium 3.6 mmol/L (3.5-5.1); Sodium Level 141 mmol/L (136-145)
[2021-02-22 19:36] LABS: Amphetamine Urine VISTA NEGATIVE (<1000 ng/mL); Barbiturate Urine VISTA NEGATIVE (< 200 ng/mL); Benzodiazepine Urine VISTA NEGATIVE (< 200 ng/mL); Cocaine Urine VISTA NEGATIVE (< 300 ng/mL); Ecstacy Urine VISTA NEGATIVE (< 500 ng/mL); Methadone Urine VISTA NEGATIVE (< 300 ng/mL); PCP Urine VISTA NEGATIVE (< 25 ng/mL); THC Urine VISTA NEGATIVE (< 50 ng/mL); Vista UDS pH Range 6
--- NOTE | 2021-02-22 20:06 | CM.ED ---
SOCIAL WORK Crisis called, Catalina to be over to complete assessment. Del Colorado, INSURANCE CLAIM REPRESENTATIVE, VARNISH BLENDER
--- NOTE | 2021-02-22 22:22 | CM.ED ---
SOCIAL WORK Received call from Kaylee inquiring about [place]. Informed Dr. Perdomo signed [place] and it is on chart. Patient has been referred to [facility] per Crisis. Staff andrade. Del Coloardo, GIS TECHNICIAN, LIBRARY ATTENDANT
== END 2021-02-22 23:30 ==
PROVIDERS: Emergency Provider Student in an Organized Health Care Education/Training Program; PCP Family Medicine
DX: F25.9 Schizoaffective disorder, unspecified (principal); Z79.899 Other long term (current) drug therapy; Z88.2 Allergy status to sulfonamides; Z88.1 Allergy status to other antibiotic agents
CPT/HCPCS: 80048; 80307; 82077; 85025; 87426; 96372; 99285; J3486

== ENCOUNTER 2021-03-04 03:10 | Emergency (ER) | payer MEDICAID, SELFPAY ==
[2021-02-22 15:36] VITALS: BMI 25.0
[2021-03-04 03:10] VITALS: BP 126/92; PULSE 86; RESP 16; TEMP 36.4; O2SAT 99; BMI 24.9
[2021-03-04 03:56] LABS: Absolute Lymphocyte Count 3.36 X10^3/uL (0.83-4.51); Absolute Neutrophil Count 4.4 X10^3/uL (2.0-7.7); Basophil# 0.07 X10^3/uL; Basophil% 0.8 % (0-1); Eosinophil# 0.31 X10^3/uL; Eosinophils% 3.5 % (0-5); Hematocrit 48.7 % (40-54); Hemoglobin 16.1 g/dL (13.0-16.5); Lymphocyte # 3.36 X10^3/ul (0.83-4.51); Lymphocyte % 38.1 % (19-41); Mean Corp Hgb Conc 33.1 g/dL (32-36); Mean Corpuscular Hgb 27.7 pg (27.0-32.0); Mean Corpuscular Volume 83.8 fL (80-94); Mean Platelet Vol. 9.5 fl (6.2-12.0); Monocyte# 0.61 X10^3/uL; Monocyte% 6.9 % (0-10); NRBC Flagged by Analyzer 0 % (0-5); Neutrophil # 4.44 X10^3/uL (2.7-7.7); Neutrophil % 50.4 % (47-70); Platelet Count 673 K/mm3 (150-450); RBC Distribution Width CV 13.2 % (11.6-14.6); RBC Distribution Width SD 40.3 fl (35.1-43.9); Red Blood Count 5.81 M/mm3 (4.6-6.2); White Blood Count 8.8 K/mm3 (4.4-11.0)
[2021-03-04 04:03] LABS: Anion Gap 4 (5-15); BUN 7 mg/dL (7-18); BUN/Creat Ratio 8.2 RATIO (10-20); Calcium,Total 9.1 mg/dL (8.5-10.1); Chloride 106 mmol/L (98-107); Creatinine, Serum 0.85 mg/dL (0.70-1.30); EST Glomerular Filtration Rate 113 mL/min (>60); Est Glom Filt Rate - Afr Amer 137 mL/min (>60); Estimated Creatinine Clearance 107.37 ml/min; Glucose 92 mg/dL (74-106); Potassium 3.8 mmol/L (3.5-5.1); Sodium Level 140 mmol/L (136-145)
[2021-03-04 04:19] LABS: Amphetamine Urine VISTA NEGATIVE (<1000 ng/mL); Barbiturate Urine VISTA NEGATIVE (< 200 ng/mL); Benzodiazepine Urine VISTA NEGATIVE (< 200 ng/mL); Cocaine Urine VISTA NEGATIVE (< 300 ng/mL); Ecstacy Urine VISTA NEGATIVE (< 500 ng/mL); Methadone Urine VISTA NEGATIVE (< 300 ng/mL); PCP Urine VISTA NEGATIVE (< 25 ng/mL); THC Urine VISTA NEGATIVE (< 50 ng/mL); Vista UDS pH Range 5
--- NOTE | 2021-03-04 04:33 | EDS_ITS ---
HPI <Dr. Jose G Alcantar DO - Last Filed: 03/04/21 04:51> HPI - Psych History of Present Illness Chief Complaint: Mental Health Informant: EMS Narrative Narrative: History of schizoaffective disorder brought in by EMS after being found walking the streets. He states he does live his father is walking to the gas station. Unclear if he is taking any current medications. From records was seen 10 days ago in the ED for similar was sent to psychiatric facility, [facility]. He denies any homicidal suicidal ideations. Will discuss hallucinations, he would make noises and start speaking Kiswahili phrases. He states he is part Kiswahili. He would not answer when discussion with alcohol or illicit drug use. Prior similar symptoms: Yes PFSH <Dr. Jose G Alcantar DO - Last Filed: 03/04/21 04:51> PFSH Medical History Schizo-affective psychosis Schizoaffective disorder Home Medications NK 09/03/19 [History Last Taken Unknown] Allergy/AdvReac Type Severity Reaction Status Date / Time haloperidol [From Haldol] Allergy Other Verified 03/04/21 03:16 peanut Allergy Food Verified 03/04/21 03:16 Allergy sulfamethoxazole Allergy Itching Verified 03/04/21 03:16 [From Bactrim] trimethoprim [From Bactrim] Allergy Itching Verified 03/04/21 03:16 Social History Smoking Status: Unknown if ever smoked ROS <Dr. Jose G Alcantar DO - Last Filed: 03/04/21 04:51> ROS ED Constitutional Constitutional ED: Denies chills, fever(s) or sweats Eyes Eyes: Denies change in vision ENT ENT ED: Denies dysphagia or sore throat Cardiovascular Cardiovascular: Denies chest pain, leg edema, palpitations or racing heartbeat Respiratory/Chest Respiratory/Chest: Denies cough, dyspnea or dyspnea on exertion Gastrointestinal Gastrointestinal: Denies abdominal pain, diarrhea, nausea or vomiting Genitourinary Genitourinary ED: Denies dysuria, hematuria or urinary frequency Musculoskeletal Musculoskeletal: Denies extremity pain Integumentary Denies wounds Neurologic Neurologic: Denies headache(s), paresthesias or weakness Psychiatric Psychiatric: Denies suicidal ideation or suicidal thoughts EXAM <Dr. Jose G Alcantar DO - Last Filed: 03/04/21 04:51> Physical Exam Const Vital Signs: 03/04/21 03:10 03/04/21 05:10 03/04/21 07:24 Temperature 97.6 F L Temperature Source Temporal Pulse Rate 86 80 Respiratory Rate 16 16 16 Blood Pressure 126/92 H 129/61 H Blood Pressure Mean 103 83 Pulse Ox 99 98 Oxygen Delivery Method Room Air Room Air 03/04/21 09:15 Temperature Temperature Source Pulse Rate Respiratory Rate 16 Blood Pressure Blood Pressure Mean Pulse Ox Oxygen Delivery Method Constitutional Narrative: Disheveled, did allow examination. HEENT Reports moist mucous membranes normocephalic and atraumatic Eyes PERRL, EOMs intact bilaterally and conjunctivae normal General Eye ED: Yes normal appearance of both eyes Neck no lymphadenopathy and supple General: Negative for tenderness Chest Wall Chest: Negative for tenderness Resp normal respiratory effort and normal air movement Effort and Inspection: symmetric chest movement; Negative for respiratory distress Cardio regular rate, regular rhythm and no murmurs Peripheral Pulses: pulses 2+ throughout GI normal to inspection, nondistended, normoactive bowel sounds and non-tender Palpation: Negative for guarding or rebound tenderness present Back/Spine no CVA tenderness and no thoracic nor lumbar tenderness Extremity normal to inspection General Extremety ED: Negative for edema or tenderness General Extremity: Negative for edema Neuro oriented x3 and no sensory deficits noted Sensorium / Orientation: awake and alert Psych denies homicidal ideation and denies suicidal ideation Psych Narrative: Tangentiality, abnormal behavior. Skin no rashes or lesions noted and no wounds <Dr. Matheus lLoyd MD - Last Filed: 03/04/21 09:51> Physical Exam Const Vital Signs: 03/04/21 03:10 03/04/21 05:10 03/04/21 07:24 Temperature 97.6 F L Temperature Source Temporal Pulse Rate 86 80 Respiratory Rate 16 16 16 Blood Pressure 126/92 H 129/61 H Blood Pressure Mean 103 83 Pulse Ox 99 98 Oxygen Delivery Method Room Air Room Air 03/04/21 09:15 Temperature Temperature Source Pulse Rate Respiratory Rate 16 Blood Pressure Blood Pressure Mean Pulse Ox Oxygen Delivery Method MDM <Dr. Jose G Alcantar DO - Last Filed: 03/04/21 04:51> [facility] MDM Narrative Medical decision making narrative: Patient schizophrenia history, abnormal behavior with psychosis. Laboratory work-up initiated, alcohol tox screen negative. Labs are stable. He is medically cleared. Will await for mental health evaluation for disposition. Lab Data Attestation: I reviewed the patient's lab results. Labs: Laboratory Results - last 24 hr 03/04/21 03/04/21 03/04/21 03:20 03:20 03:20 WBC 8.8 RBC 5.81 Hgb 16.1 Hct 48.7 MCV 83.8 MCH 27.7 MCHC 33.1 RDW Std Deviation 40.3 RDW Coeff of Javy 13.2 Plt Count 673 H MPV 9.5 Immature Gran % (Auto) 0.300 Neut % (Auto) 50.4 Lymph % (Auto) 38.1 Canadian % (Auto) 6.9 Eos % (Auto) 3.5 Baso % (Auto) 0.8 Absolute Neuts (auto) 4.4 Absolute Lymphs (auto) 3.36 Nucleated RBC % 0 Sodium 140 Potassium 3.8 Chloride 106 Carbon Dioxide 30.0 Anion Gap 4 L BUN 7 Creatinine 0.85 Estim Creat Clear Calc 107.37 Est GFR (MDRD) Af Amer 137 Est GFR (MDRD) Non-Af 113 BUN/Creatinine Ratio 8.2 L Glucose 92 Calcium 9.1 Urine Opiates Screen Urine Methadone Screen Ur Barbiturates Screen Ur Phencyclidine Scrn Ur Amphetamines Screen U Methamphetamin-MDMA U Benzodiazepines Scrn Urine Cocaine Screen U Cannabinoids Screen Ur Drug Screen Comment Ethyl Alcohol 5.0 03/04/21 04:00 WBC RBC Hgb Hct MCV MCH MCHC RDW Std Deviation RDW Coeff of Javy Plt Count MPV Immature Gran % (Auto) Neut % (Auto) Lymph % (Auto) Canadian % (Auto) Eos % (Auto) Baso % (Auto) Absolute Neuts (auto) Absolute Lymphs (auto) Nucleated RBC % Sodium Potassium Chloride Carbon Dioxide Anion Gap BUN Creatinine Estim Creat Clear Calc Est GFR (MDRD) Af Amer Est GFR (MDRD) Non-Af BUN/Creatinine Ratio Glucose Calcium Urine Opiates Screen NEGATIVE Urine Methadone Screen NEGATIVE Ur Barbiturates Screen NEGATIVE Ur Phencyclidine Scrn NEGATIVE Ur Amphetamines Screen NEGATIVE U Methamphetamin-MDMA NEGATIVE U Benzodiazepines Scrn NEGATIVE Urine Cocaine Screen NEGATIVE U Cannabinoids Screen NEGATIVE Ur Drug Screen Comment Ethyl Alcohol <Dr. Matheus Lloyd MD - Last Filed: 03/04/21 09:51> MDM MDM Narrative Medical decision making narrative: Patient was medically cleared. He was accepted to [facility]. The patient will be transferred for inpatient psychiatry. Lab Data Attestation: I reviewed the patient's lab results. Labs: Laboratory Results - last 24 hr 03/04/21 03/04/21 03/04/21 03:20 03:20 03:20 WBC 8.8 RBC 5.81 Hgb 16.1 Hct 48.7 MCV 83.8 MCH 27.7 MCHC 33.1 RDW Std Deviation 40.3 RDW Coeff of Javy 13.2 Plt Count 673 H MPV 9.5 Immature Gran % (Auto) 0.300 Neut % (Auto) 50.4 Lymph % (Auto) 38.1 Canadian % (Auto) 6.9 Eos % (Auto) 3.5 Baso % (Auto) 0.8 Absolute Neuts (auto) 4.4 Absolute Lymphs (auto) 3.36 Nucleated RBC % 0 Sodium 140 Potassium 3.8 Chloride 106 Carbon Dioxide 30.0 Anion Gap 4 L BUN 7 Creatinine 0.85 Estim Creat Clear Calc 107.37 Est GFR (MDRD) Af Amer 137 Est GFR (MDRD) Non-Af 113 BUN/Creatinine Ratio 8.2 L Glucose 92 Calcium 9.1 Urine Opiates Screen Urine Methadone Screen Ur Barbiturates Screen Ur Phencyclidine Scrn Ur Amphetamines Screen U Methamphetamin-MDMA U Benzodiazepines Scrn Urine Cocaine Screen U Cannabinoids Screen Ur Drug Screen Comment Ethyl Alcohol 5.0 03/04/21 04:00 WBC RBC Hgb Hct MCV MCH MCHC RDW Std Deviation RDW Coeff of Javy Plt Count MPV Immature Gran % (Auto) Neut % (Auto) Lymph % (Auto) Canadian % (Auto) Eos % (Auto) Baso % (Auto) Absolute Neuts (auto) Absolute Lymphs (auto) Nucleated RBC % Sodium Potassium Chloride Carbon Dioxide Anion Gap BUN Creatinine Estim Creat Clear Calc Est GFR (MDRD) Af Amer Est GFR (MDRD) Non-Af BUN/Creatinine Ratio Glucose Calcium Urine Opiates Screen NEGATIVE Urine Methadone Screen NEGATIVE Ur Barbiturates Screen NEGATIVE Ur Phencyclidine Scrn NEGATIVE Ur Amphetamines Screen NEGATIVE U Methamphetamin-MDMA NEGATIVE U Benzodiazepines Scrn NEGATIVE Urine Cocaine Screen NEGATIVE U Cannabinoids Screen NEGATIVE Ur Drug Screen Comment Ethyl Alcohol Discharge Plan Triage Chief Complaint: Mental Health Other Complaint: Alt LOC ED Provider: Matheus Lloyd Dx/Rx/DC Orders Clinical Impression: Schizophrenia, Psychosis Prescriptions: No Action NK RF: 0 Primary Care Provider: Dennis Olivas Referrals: Dennis Olivas MD [Primary Care Provider] -
--- NOTE | 2021-03-04 04:42 | NURSING ---
CALLED CRISIS AT [phone]
[2021-03-04 05:10] VITALS: RESP 16
--- NOTE | 2021-03-04 06:36 | ED.RN ---
ARABELLA FROM CRISIS REPORTS THEY ARE ATTEMPTING PLACEMENT AT [facility].
[2021-03-04 07:24] VITALS: BP 129/61; PULSE 80; RESP 16; O2SAT 98
[2021-03-04 09:15] VITALS: RESP 16
--- NOTE | 2021-03-04 09:48 | NURSING ---
spoke with Ayla from Crisis pt accepted at [facility], ETA of 90 minutes for transport
[2021-03-04 10:07] VITALS: BP 129/61; PULSE 80; RESP 16; TEMP 36.4; O2SAT 98
== END 2021-03-04 11:07 ==
PROVIDERS: Emergency Medicine; Emergency Provider Emergency Medicine; PCP Family Medicine
DX: F25.9 Schizoaffective disorder, unspecified (principal); Z79.899 Other long term (current) drug therapy; Z88.1 Allergy status to other antibiotic agents; Z88.2 Allergy status to sulfonamides
CPT/HCPCS: 80048; 80307; 82077; 85025; 99285

== ENCOUNTER 2021-04-23 06:53 | Emergency (ER) | payer MEDICAID, SELFPAY ==
[2021-04-23 06:54] VITALS: BP 132/84; PULSE 84; RESP 14; TEMP 36.5; O2SAT 98; BMI 26.6
--- NOTE | 2021-04-23 07:31 | EDS_ITS ---
HPI HPI - Psych History of Present Illness Chief Complaint: Mental Health Informant: patient and police/chemical process engineer Narrative Narrative: Patient is a 30-year-old male who presents to the emergency department by police after he was found kneeling in the road. Patient states that he is here because he has amnesia. He states that he cannot remember most aspects of his life. 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 He states that he takes a medication on the streets that makes him forget and remember. He has been doing this for 30 years. Whenever asked the patient the name of the medications he mumbles patient denies any other drug or alcohol use. States he does not take any medications on a regular basis. Reviewing his medical records he does have psych history and has been seen in the emergency department before. Has a history of schizoaffective disorder. At this time patient does not have any other complaints besides the amnesia. No suicidal ideation. PFSH PFS Medical History Schizo-affective psychosis Schizoaffective disorder Home Medications NK 09/03/19 [History Last Taken Unknown] Allergy/AdvReac Type Severity Reaction Status Date / Time haloperidol [From Haldol] Allergy Other Verified 04/23/21 06:58 peanut Allergy Food Verified 04/23/21 06:58 Allergy sulfamethoxazole Allergy Itching Verified 04/23/21 06:58 [From Bactrim] trimethoprim [From Bactrim] Allergy Itching Verified 04/23/21 06:58 Social History Smoking Status: Unknown if ever smoked ROS ROS ED Constitutional Constitutional ED: Denies chills or fever(s) Eyes Eyes: Denies change in vision ENT ENT ED: Denies epistaxis or rhinorrhea Cardiovascular Cardiovascular: Denies chest pain or palpitations Respiratory/Chest Respiratory/Chest: Denies cough or dyspnea Gastrointestinal Gastrointestinal: Denies abdominal pain, nausea or vomiting Musculoskeletal Musculoskeletal: Denies back pain or neck pain Integumentary Denies rash Neurologic Neurologic: Denies dizziness, headache(s) or weakness EXAM Physical Exam Const Vital Signs: 04/23/21 06:54 04/23/21 09:05 04/23/21 11:00 Temperature 97.7 F L Temperature Source Oral Pulse Rate 84 Respiratory Rate 14 15 16 Blood Pressure 132/84 H Blood Pressure Mean 100 Pulse Ox 98 Oxygen Delivery Method Room Air Room Air 04/23/21 13:09 Temperature 98.3 F Temperature Source Oral Pulse Rate 75 Respiratory Rate 16 Blood Pressure 128/83 H Blood Pressure Mean 98 Pulse Ox 98 Oxygen Delivery Method Room Air Positive well nourished and well developed General Appearance ED: well developed and NAD HEENT Reports normocephalic, head/scalp atraumatic and moist mucous membranes Eyes PERRL and EOMs intact bilaterally Neck supple Chest Wall inspection of chest normal Resp normal respiratory effort Resp Narrative: No increased work of breathing. Symmetrical chest rise bilaterally Cardio regular rate and regular rhythm Cardio Narrative: Regular rate and rhythm GI GI Narrative: Abdomen nondistended. Extremity normal to inspection General Extremety ED: Negative for edema General Extremity: Negative for edema Neuro no sensory deficits noted Sensorium / Orientation: alert Motor Exam: strength 5/5 throughout Skin no rashes or lesions noted MDM MDM MDM Narrative Medical decision making narrative: Patient presents to the emergency department for kneeling in the road. Patient states that he forgets his life due to taking an unknown medication. On arrival to the ED vital signs within normal limits. Patient is calm and cooperative. He does have a history of schizoaffective disorder. Will check basic lab work and consult crisis. Patient's lab work showed a high platelet count but this is actually decreased from previous work-ups. The rest of the lab work did not reveal a significant acute abnormality. His talk screen is negative. Alcohol level is negative. Social work did evaluate the patient and we are in agreement that patient does need acute inpatient psychiatric stay for stabilization. At this time we are currently working on placement. Patient was accepted to [facility]. Currently waiting transport. Patient otherwise has been calm and cooperative with the ED staff. Lab Data Labs: Laboratory Results - last 24 hr 04/23/21 04/23/21 04/23/21 07:40 07:45 07:45 WBC 8.6 RBC 5.38 Hgb 15.0 Hct 45.0 MCV 83.6 MCH 27.9 MCHC 33.3 RDW Std Deviation 41.5 RDW Coeff of Javy 13.8 Plt Count 551 H MPV 9.2 Immature Gran % (Auto) 0.500 Neut % (Auto) 60.2 Lymph % (Auto) 28.2 Barron % (Auto) 7.6 Eos % (Auto) 2.7 Baso % (Auto) 0.8 Absolute Neuts (auto) 5.2 Absolute Lymphs (auto) 2.42 Nucleated RBC % 0.2 Sodium 138 Potassium 3.7 Chloride 104 Carbon Dioxide 31.0 Anion Gap 3 L BUN 11 Creatinine 0.89 Estim Creat Clear Calc 106.53 Est GFR (MDRD) Af Amer 130 Est GFR (MDRD) Non-Af 107 BUN/Creatinine Ratio 12.4 Glucose 95 Calcium 8.9 Total Bilirubin 1.30 H AST 18 ALT 34 Alkaline Phosphatase 74 Total Protein 7.4 Albumin 4.0 Globulin 3.4 Albumin/Globulin Ratio 1.2 Urine Opiates Screen NEGATIVE Urine Methadone Screen NEGATIVE Ur Barbiturates Screen NEGATIVE Ur Phencyclidine Scrn NEGATIVE Ur Amphetamines Screen NEGATIVE U Methamphetamin-MDMA NEGATIVE U Benzodiazepines Scrn NEGATIVE Urine Cocaine Screen NEGATIVE U Cannabinoids Screen NEGATIVE Ur Drug Screen Comment Ethyl Alcohol 04/23/21 07:45 WBC RBC Hgb Hct MCV MCH MCHC RDW Std Deviation RDW Coeff of Javy Plt Count MPV Immature Gran % (Auto) Neut % (Auto) Lymph % (Auto) Barron % (Auto) Eos % (Auto) Baso % (Auto) Absolute Neuts (auto) Absolute Lymphs (auto) Nucleated RBC % Sodium Potassium Chloride Carbon Dioxide Anion Gap BUN Creatinine Estim Creat Clear Calc Est GFR (MDRD) Af Amer Est GFR (MDRD) Non-Af BUN/Creatinine Ratio Glucose Calcium Total Bilirubin AST ALT Alkaline Phosphatase Total Protein Albumin Globulin Albumin/Globulin Ratio Urine Opiates Screen Urine Methadone Screen Ur Barbiturates Screen Ur Phencyclidine Scrn Ur Amphetamines Screen U Methamphetamin-MDMA U Benzodiazepines Scrn Urine Cocaine Screen U Cannabinoids Screen Ur Drug Screen Comment Ethyl Alcohol < 3.0 EKG Initial EKG: Attestation: I personally reviewed and interpreted this EKG as follows: (Rate of 71 bpm normal sinus rhythm. Normal intervals. Normal axis. No significant ST elevations or depressions. No T wave abnormalities.) Discharge Plan Triage Chief Complaint: Mental Health ED Provider: Ronnie Cantu Dx/Rx/DC Orders Clinical Impression: Psychosis Prescriptions: No Action NK RF: 0 Primary Care Provider: Care Physician,No Primary Referrals: Care Physician,No Primary [Primary Care Provider] - Disposition Disposition: Psychiatric Hospital or Unit
[2021-04-23 07:58] LABS: Absolute Lymphocyte Count 2.42 X10^3/uL (0.83-4.51); Absolute Neutrophil Count 5.2 X10^3/uL (2.0-7.7); Basophil# 0.07 X10^3/uL; Basophil% 0.8 % (0-1); Eosinophil# 0.23 X10^3/uL; Eosinophils% 2.7 % (0-5); Lymphocyte # 2.42 X10^3/ul (0.83-4.51); Lymphocyte % 28.2 % (19-41); Mean Corp Hgb Conc 33.3 g/dL (32-36); Mean Corpuscular Hgb 27.9 pg (27.0-32.0); Mean Corpuscular Volume 83.6 fL (80-94); Mean Platelet Vol. 9.2 fl (6.2-12.0); Monocyte# 0.65 X10^3/uL; Monocyte% 7.6 % (0-10); NRBC Flagged by Analyzer 0.2 % (0-5); Neutrophil # 5.18 X10^3/uL (2.7-7.7); Neutrophil % 60.2 % (47-70); Platelet Count 551 K/mm3 (150-450); RBC Distribution Width CV 13.8 % (11.6-14.6); RBC Distribution Width SD 41.5 fl (35.1-43.9); Red Blood Count 5.38 M/mm3 (4.6-6.2); White Blood Count 8.6 K/mm3 (4.4-11.0)
[2021-04-23 08:12] LABS: Amphetamine Urine VISTA NEGATIVE (<1000 ng/mL); Barbiturate Urine VISTA NEGATIVE (< 200 ng/mL); Benzodiazepine Urine VISTA NEGATIVE (< 200 ng/mL); Cocaine Urine VISTA NEGATIVE (< 300 ng/mL); Ecstacy Urine VISTA NEGATIVE (< 500 ng/mL); Methadone Urine VISTA NEGATIVE (< 300 ng/mL); PCP Urine VISTA NEGATIVE (< 25 ng/mL); THC Urine VISTA NEGATIVE (< 50 ng/mL); Vista UDS pH Range 5
[2021-04-23 08:13] LABS: Alcohol, Blood (Medical)-Serum < 3.0 mg/dL
[2021-04-23 08:15] LABS: ALB/GLOB Ratio 1.2 RATIO (0.9-2.4); AST(SGOT) 18 U/L (15-37); Alanine Aminotransfer ALT/SGPT 34 U/L (16-61); Alkaline Phosphatase 74 U/L (45-117); Anion Gap 3 (5-15); BUN 11 mg/dL (7-18); BUN/Creat Ratio 12.4 RATIO (10-20); Calcium,Total 8.9 mg/dL (8.5-10.1); Chloride 104 mmol/L (98-107); Creatinine, Serum 0.89 mg/dL (0.70-1.30); EST Glomerular Filtration Rate 107 mL/min (>60); Est Glom Filt Rate - Afr Amer 130 mL/min (>60); Estimated Creatinine Clearance 106.53 ml/min; Globulin 3.4 g/dL (2.2-4.2); Glucose 95 mg/dL (74-106); Potassium 3.7 mmol/L (3.5-5.1); Protein, Total 7.4 g/dL (6.4-8.2); Sodium Level 138 mmol/L (136-145)
[2021-04-23 09:05] VITALS: RESP 15
--- NOTE | 2021-04-23 10:32 | CM.ED ---
SOCIAL WORK ASSESSMENT Referral Source: Reason for Consult: Mental Health Chief Compliant: KRISTEL met with MD who advised that patient was brought into the hospital says he was kneeling on the road. Per MD patient was previously diagnosed as schizoaffective. Patient told MD ?I can?t remember my life?. SW introduced self to patient. Patient was asked what this senior writer wanted patient to call him, and he said ?Gertrude Gonzalez?. SW asked who Miquel is and patient said, ?no Miquel?. SW met with patient, and he reports he is at the hospital due to ?amnesia?. SW asked how long patient has been feeling this way and he said ?Months?. Patient was asked if he was seeing or hearing things that were not present and patient said he was ?seeing dragons?. SW asked if the dragons say anything g and he said, ?I am eating something?. Patient is mumbling and very difficult to understand. He whispers when talking to this senior writer. RN said that patient has been waving to people, in the room, who are not there. Marital/Social History: Single Living Situation: In House with parents Support/Resources: When asked about support patient said, ?fake name?. Patient was asked who he talks to when he is having a bad day and he whispered, ?mom and dad?. History: None Education and Employment History: Patient graduated from high school. When asked which high school he said, ?I can?t? say?. 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 SW asked if patient was employed, and he said ?yeah? and when asked where he said, ?that box??. Patient was asked to clarify, and he said, ?it doesn?t matter? and closed his eyes. Mental Health Treatment/History: Patient reports that he is not on any psychiatric meds and is not linked with [facility]. SW noted that patient had previously been at [facility] and social media content specialist asked if he had been anywhere else for psychiatric treatment and patient said ?no?. Triggers/Stressors: Patient reports his stressors are ?getting to next day? Coping Skills: Patient was asked about coping skills and patient said, ?getting to next day?. Substance Abuse History: Denied History of Abuse or Neglect: Denied Risk to Self/Others: Suicidal- Patient denied Suicidal Ideation. Homicidal: Patient denied homicidal ideation Violence- Patient denied Mental Status Exam: Orientation: Patient reports it is 2020, 8th month but 30th day and he doesn?t know his name. Memory: Impaired Appearance/General Behavior: Controlled. Patient is walking back and forth in the room; however, he is able to sit down and talk to this senior writer. Thought Process: Incoherent, whispers and does not initiate. Appears to be responding to internal stimuli during the interview. Patient is also very watchful. Mood/Affect: Mood is neutral with flat affect. General Intellectual Functioning: average Judgement: Poor Insight: Poor Assessment: Patient presents to the ED due to safety concern. Patient is watchful and whispers throughout the interview. Patient appears to be responding to internal stimuli and reports he sees ?dragons? and hears them. Patient, due to his current psychotic behavior, is unsafe to be discharged. Thus, to ensure his safety and resume medications patient needs to be hospitalized at inpatient psych unit. Plan: Inpatient psych unit Marisabel AMAYA
[2021-04-23 11:00] VITALS: RESP 16
--- NOTE | 2021-04-23 11:39 | CM.ED ---
KRISTEL Note SW made referral to [facility] for patient. KRISTEL faxed referral packet to [facility]. Marisabel AMAYA
--- NOTE | 2021-04-23 12:12 | EKG12_ITS ---
Test Reason : MEDICAL CLEARANCE Blood Pressure : / mmHG Vent. Rate : 071 BPM Atrial Rate : 071 BPM P-R Int : 142 ms QRS Dur : 094 ms QT Int : 380 ms P-R-T Axes : 055 044 032 degrees QTc Int : 412 ms Normal sinus rhythm with sinus arrhythmia Normal ECG Confirmed by KISHORE VIGIL, DANNA ([id number]), non linear editor GASTON CHAMBERS ([id number]) on 04/27/2021 9:11:36 AM Referred By: KENNEDY Confirmed By:DANNA NOVAK MD
[2021-04-23 13:09] VITALS: BP 128/83; PULSE 75; RESP 16; TEMP 36.8; O2SAT 98
--- NOTE | 2021-04-23 13:58 | CM.ED ---
Addendum entered by Marisabel Menjivar 04/23/21 15:00: SW updated patient that he is going to [facility]. No issues or concerns voiced. Marisabel AMAYA Original Note: KRISTEL received call from Yaneth at [facility]. Patient was accepted by [facility]. Accepting MD is Dr. Acevedo. Yaneth will arrange for transportation at 3:30pm this afternoon. MD, minilab operator, RN and Manager Flight updated. Plan: [facility] Marisabel AMAYA
[2021-04-23 15:00] VITALS: RESP 12
[2021-04-23 17:19] VITALS: BP 118/76; PULSE 80; RESP 16; O2SAT 98
== END 2021-04-23 17:23 ==
PROVIDERS: Emergency Provider Emergency Medicine
DX: F29 Unspecified psychosis not due to a substance or known physiological condition (principal); Z88.1 Allergy status to other antibiotic agents; Z88.2 Allergy status to sulfonamides
CPT/HCPCS: 80053; 80307; 82077; 85025; 87426; 93005; 99285

== ENCOUNTER 2021-05-10 00:43 | Emergency (ER) | payer MEDICAID, SELFPAY ==
[2021-05-10 00:44] VITALS: BP 124/78; PULSE 78; RESP 17; TEMP 36.6; O2SAT 99; BMI 26.0
--- NOTE | 2021-05-10 01:00 | EX.ED.VIS.PS ---
HPI HPI - Psych History of Present Illness Chief Complaint: Mental Health Narrative Narrative: Patient arrives via police. He is a known schizophrenic who called the police saying that his father was . He was found sleeping on the couch and is indeed not . When the patient arrived however he is highly delusional and paranoid, it is clear to me that he does not make any sense when I try to talk to him, he does not answer most questions appropriately he is tangential and has flight of ideas. I cannot get a review of systems from him. PFSH PFS Medical History Schizo-affective psychosis Schizoaffective disorder Home Medications aripiprazole 30 mg DAILY 05/10/21 [History Last Taken Unknown] Allergy/AdvReac Type Severity Reaction Status Date / Time haloperidol [From Haldol] Allergy Other Verified 05/10/21 00:47 peanut Allergy Food Verified 05/10/21 00:47 Allergy sulfamethoxazole Allergy Itching Verified 05/10/21 00:47 [From Bactrim] trimethoprim [From Bactrim] Allergy Itching Verified 05/10/21 00:47 Social History Smoking Status: Unknown if ever smoked ROS ROS ED Review of Systems ROS Unobtainable: due to mental status EXAM Physical Exam Narrative Exam Narrative: Physical exam. He does allow me a physical exam. General: He appears comfortable he does not appear ill. Head: Normocephalic, Atraumatic Eyes: Conjunctiva not pale ENT: Moist mucous membranes Neck: Supple, Nontender, No lymphadenopathy Cardiovascular: Regular rate, Regular rhythm Respiratory: No distress, CTA bilaterally Abdomen: Soft, Nontender, Nondistended Back: Nontender, Normal Inspection. Negative for: CVA tenderness Extremities: Nontender, No edema Skin: Normal color, No rash Neurological: Patient is alert, however he does not answer any of the orientation questions appropriately. He has no focal deficit Psychological: Bizarre affect. He has tangential thought process, does not answer questions correctly and sometimes just refuses to answer questions. He does answer no by shaking his head when I ask him if he wants to hurt himself or anyone else. Const Vital Signs: 05/10/21 00:44 Temperature 97.8 F Temperature Source Temporal Pulse Rate 78 Respiratory Rate 17 Blood Pressure 124/78 H Blood Pressure Mean 93 Pulse Ox 99 Oxygen Delivery Method Room Air MDM MDM MDM Narrative Medical decision making narrative: Patient will be medically cleared and evaluated by crisis. Discharge Plan Triage Chief Complaint: Mental Health ED Provider: Gideon Nava Dx/Rx/DC Orders Clinical Impression: Psychosis, Schizophrenia Prescriptions: No Action aripiprazole 30 mg tablet 30 mg DAILY RF: 0 Primary Care Provider: Care Physician,No Primary Referrals: Care Physician,No Primary [Primary Care Provider] -
[2021-05-10 01:21] LABS: Absolute Lymphocyte Count 3.13 X10^3/uL (0.83-4.51); Absolute Neutrophil Count 4.8 X10^3/uL (2.0-7.7); Basophil# 0.07 X10^3/uL; Basophil% 0.8 % (0-1); Eosinophil# 0.23 X10^3/uL; Eosinophils% 2.6 % (0-5); Hematocrit 42.9 % (40-54); Hemoglobin 14.2 g/dL (13.0-16.5); Lymphocyte # 3.13 X10^3/ul (0.83-4.51); Lymphocyte % 35.5 % (19-41); Mean Corp Hgb Conc 33.1 g/dL (32-36); Mean Corpuscular Hgb 27.9 pg (27.0-32.0); Mean Corpuscular Volume 84.3 fL (80-94); Monocyte% 6.8 % (0-10); NRBC Flagged by Analyzer 0 % (0-5); Neutrophil # 4.77 X10^3/uL (2.7-7.7); Neutrophil % 54.1 % (47-70); Platelet Count 561 K/mm3 (150-450); RBC Distribution Width CV 13.7 % (11.6-14.6); RBC Distribution Width SD 42.4 fl (35.1-43.9); Red Blood Count 5.09 M/mm3 (4.6-6.2); White Blood Count 8.8 K/mm3 (4.4-11.0)
[2021-05-10 01:37] LABS: Alcohol, Blood (Medical)-Serum < 3.0 mg/dL
[2021-05-10 01:39] LABS: Anion Gap 6 (5-15); BUN 13 mg/dL (7-18); BUN/Creat Ratio 13.4 RATIO (10-20); Calcium,Total 8.6 mg/dL (8.5-10.1); Chloride 107 mmol/L (98-107); Creatinine, Serum 0.97 mg/dL (0.70-1.30); EST Glomerular Filtration Rate 97 mL/min (>60); Est Glom Filt Rate - Afr Amer 117 mL/min (>60); Estimated Creatinine Clearance 97.74 ml/min; Glucose 109 mg/dL (74-106); Potassium 3.2 mmol/L (3.5-5.1); Sodium Level 139 mmol/L (136-145)
[2021-05-10 01:44] VITALS: RESP 14
[2021-05-10 01:59] LABS: Amphetamine Urine VISTA NEGATIVE (<1000 ng/mL); Barbiturate Urine VISTA NEGATIVE (< 200 ng/mL); Benzodiazepine Urine VISTA NEGATIVE (< 200 ng/mL); Cocaine Urine VISTA NEGATIVE (< 300 ng/mL); Ecstacy Urine VISTA NEGATIVE (< 500 ng/mL); Methadone Urine VISTA NEGATIVE (< 300 ng/mL); PCP Urine VISTA NEGATIVE (< 25 ng/mL); THC Urine VISTA NEGATIVE (< 50 ng/mL); Vista UDS pH Range 6
[2021-05-10 02:00] VITALS: RESP 16
--- NOTE | 2021-05-10 03:25 | ED.RN ---
crisis in to see patient. After exam they are will work on placing patient
[2021-05-10 05:33] VITALS: BP 146/86; PULSE 74; RESP 16; TEMP 36.9; O2SAT 97
[2021-05-10 06:48] VITALS: BP 146/86; PULSE 74; RESP 16; TEMP 36.9; O2SAT 98
== END 2021-05-10 06:55 ==
PROVIDERS: Emergency Provider Emergency Medicine
DX: F25.9 Schizoaffective disorder, unspecified (principal); Z79.899 Other long term (current) drug therapy; Z88.1 Allergy status to other antibiotic agents; Z88.2 Allergy status to sulfonamides
CPT/HCPCS: 80048; 80307; 82077; 85025; 87426; 99285

== ENCOUNTER 2021-12-07 14:29 | Emergency (ER) | payer MEDICAID, SELFPAY ==
[2021-12-07] VITALS (7 sets, daily range): BP systolic 125–145; BP diastolic 80–92; PULSE 78–123; RESP 16–18; TEMP 36.6; O2SAT 94–98; BMI 24.8
--- NOTE | 2021-12-07 15:31 | EX.ED.VIS.PS ---
HPI HPI - Psych History of Present Illness Chief Complaint: Mental Health Narrative Narrative: 31-year-old male with history of schizophrenia and psychosis escorted from [facility] [address] after having erratic behavior. The police made contact with him at the entrance and states that he was making very bizarre statements about taking power and taking over the world. They state that he was inappropriately dressed for the weather conditions as it is very cold outside and he was barefoot. Upon talking to him he states that he felt as if the police were going to try and kill him today. When I asked why he stated that he was not billed as the people from [facility] were coming for him as well. When I asked for he came from he said from over there. He stares off. He is unable to give much medical history. PFSH PFS Medical History Schizo-affective psychosis Schizoaffective disorder Home Medications aripiprazole 30 mg DAILY 05/10/21 [History Last Taken Unknown] Allergy/AdvReac Type Severity Reaction Status Date / Time haloperidol [From Haldol] Allergy Other Verified 12/07/21 14:33 peanut Allergy Food Verified 12/07/21 14:33 Allergy sulfamethoxazole Allergy Itching Verified 12/07/21 14:33 [From Bactrim] trimethoprim [From Bactrim] Allergy Itching Verified 12/07/21 14:33 Social History Smoking Status: Unknown if ever smoked ROS ROS ED Review of Systems ROS Unobtainable: due to mental condition and due to mental status EXAM Physical Exam Const Vital Signs: 12/07/21 14:30 12/07/21 17:04 12/07/21 18:09 Temperature 97.8 F Temperature Source Temporal Pulse Rate 123 H 104 H Respiratory Rate 16 16 18 Blood Pressure 145/92 H 125/83 H Blood Pressure Mean 109 97 Pulse Ox 94 95 Oxygen Delivery Method Room Air Room Air Positive well nourished and unkempt General Appearance ED: unkempt; Negative for pallor HEENT normocephalic and atraumatic Eyes PERRL and EOMs intact bilaterally Resp normal respiratory effort and clear to auscultation bilaterally Cardio Rate: tachycardic Rhythm: regular rhythm GI non-tender Palpation: soft Neuro CN's II-XII intact bilaterally Sensorium / Orientation: alert Psych Appearance: unkempt, disheveled and bizarre Attitude: paranoid and bizarre Activity / Motor Behavior: psychomotor agitation, fidgetting, hyperactive and disorganized Speech: rapid Thought Process: flight of ideas, illogical and tangential Thought Content: No suicidality Attention / Concentration: concentration grossly impaired Memory / Cognition: memory grossly impaired Impaired Memory Type(s): Positive for immediate, short term and jail Insight: poor Judgement: poor Skin General Skin Exam: Negative for jaundice or pallor MDM MDM MDM Narrative Medical decision making narrative: Patient presenting with altered mental status. He does appear to be in an acute psychosis and has a history of schizophrenia. He showed a barefoot at the court house and was making bizarre statements. Blood work is obtained and his CBC and BMP are unremarkable. EtOH negative. Urine drug screen negative. Rapid Covid negative. Patient evaluated by social work who feels he would benefit from inpatient care as to why. Patient has not required any medication for sedation. Currently trying to find placement and he has medically cleared. Patient accepted at [facility]. He will be transported when bed assignment and transport are obtained Impression: 1. Acute psychosis 2. History of schizophrenia 3. Paranoia Lab Data Labs: Laboratory Results - last 24 hr 12/07/21 12/07/21 12/07/21 15:27 15:27 15:27 WBC 10.5 RBC 5.71 Hgb 16.4 Hct 47.4 MCV 83.0 MCH 28.7 MCHC 34.6 RDW Std Deviation 39.3 RDW Coeff of Javy 13.1 Plt Count 697 H MPV 9.4 Immature Gran % (Auto) 0.500 Neut % (Auto) 70.6 H Lymph % (Auto) 19.0 [place] % (Auto) 7.1 Eos % (Auto) 2.0 Baso % (Auto) 0.8 Absolute Neuts (auto) 7.5 Absolute Lymphs (auto) 2.00 Nucleated RBC % 0 Sodium 137 Potassium 3.4 L Chloride 103 Carbon Dioxide 27.0 Anion Gap 7 BUN 12 Creatinine 0.96 Estim Creat Clear Calc 101.53 Est GFR (MDRD) Af Amer 118 Est GFR (MDRD) Non-Af 98 BUN/Creatinine Ratio 12.5 Glucose 120 H Calcium 8.8 Urine Opiates Screen Urine Methadone Screen Ur Barbiturates Screen Ur Phencyclidine Scrn Ur Amphetamines Screen MDMA (Ecstasy) Screen U Benzodiazepines Scrn Urine Cocaine Screen U Cannabinoids Screen Ur Drug Screen Comment Ethyl Alcohol 4.0 12/07/21 16:55 WBC RBC Hgb Hct MCV MCH MCHC RDW Std Deviation RDW Coeff of Javy Plt Count MPV Immature Gran % (Auto) Neut % (Auto) Lymph % (Auto) [place] % (Auto) Eos % (Auto) Baso % (Auto) Absolute Neuts (auto) Absolute Lymphs (auto) Nucleated RBC % Sodium Potassium Chloride Carbon Dioxide Anion Gap BUN Creatinine Estim Creat Clear Calc Est GFR (MDRD) Af Amer Est GFR (MDRD) Non-Af BUN/Creatinine Ratio Glucose Calcium Urine Opiates Screen NEGATIVE Urine Methadone Screen NEGATIVE Ur Barbiturates Screen NEGATIVE Ur Phencyclidine Scrn NEGATIVE Ur Amphetamines Screen NEGATIVE MDMA (Ecstasy) Screen NEGATIVE U Benzodiazepines Scrn NEGATIVE Urine Cocaine Screen NEGATIVE U Cannabinoids Screen NEGATIVE Ur Drug Screen Comment Ethyl Alcohol Discharge Plan Triage Chief Complaint: Mental Health ED Provider: Shady Perdomo Dx/Rx/DC Orders Prescriptions: No Action aripiprazole 30 mg tablet 30 mg DAILY RF: 0 Primary Care Provider: Care Physician,No Primary
--- NOTE | 2021-12-07 15:46 | CM.ED ---
Social Work Consult: Mental Health Referral source: Dr. Perdomo Chief Complaint: Patient brought to [facility] ED by local police department due to bizarre statements and behavior. Police did pink slip patient to the ED. Marital/Social History: Single. Living Situation: Lives with fatherJose Elias. Support/Resources: Patient with history of following with local counseling center, [facility] [place]. Patient discontinued services in 2020 after multiple no shows to appointments. History: Denies Education/Employment History: Unemployed. Denies issues with comprehension or understanding. Mental Health Treatment/History: Schizophrenia. History of Invega injections, not currently taking medications. History of inpatient psychiatric placements. Triggers/Stressors: Had a court today due to disorderly conduct, I think per patient father. Abuse Issues: Denies Substance Abuse Hx: Denies Risk to self/others: Denies suicidal thoughts, plans, intents. Denies homicidal thoughts, plans, intents. Patient denies history of suicidal or homicidal thoughts, plans, intents. Patient denies self harming behavior. Mental status Exam: A&Ox3 Appearance/General Behavior: Calm. unkept. Did not have shoes on today. Mood/Affect: Bizarre. Flat affect. Communication Pattern: Responds to questions. Thought Process: Denies visual and auditory hallucinations but often stares off as if responding to an external stimulation. Judgement: Fair Insight: Poor Assessment: Met with patient in room. Introduced self and social studies teacher role. Patient agreeable to speak with this social studies teacher. Patient states I am fine. This social studies teacher broached topic of why patient is currently at the hospital. Patient states I was yelling at the police. This social studies teacher inquired if patient is okay with this social studies teacher speaking with patient father, patient is agreeable. Telephone call to patient Jose Elias cooper. This social studies teacher inquired as to how patient is doing in the community. Bill states not well. Bill states that patient has been yelling at the voices. Bill states he is getting worse. Bill confirms that inpatient psychiatric placement has helped patient in the past. Bill denies any suicidal behavior for patient. Bill confirms that patient has not been taking care of self and that patient was not wearing shoes today when patient went downtown for court date today. Bill recommending inpatient psychiatric placement for stabilization. Collaborating with Dr. Perdomo. Dr. Perdomo agrees with inpatient psychiatric placement recommendation by this social studies teacher and Bill. Will continue to follow. PLAN: Inpatient psychiatric placement. Amber MURRAY, GAGANDEEP
[2021-12-07 15:49] LABS: Absolute Neutrophil Count 7.5 X10^3/uL (2.0-7.7); Basophil# 0.08 X10^3/uL; Basophil% 0.8 % (0-1); Eosinophil# 0.21 X10^3/uL; Hematocrit 47.4 % (40-54); Hemoglobin 16.4 g/dL (13.0-16.5); Mean Corp Hgb Conc 34.6 g/dL (32-36); Mean Corpuscular Hgb 28.7 pg (27.0-32.0); Mean Platelet Vol. 9.4 fl (6.2-12.0); Monocyte# 0.75 X10^3/uL; Monocyte% 7.1 % (0-10); NRBC Flagged by Analyzer 0 % (0-5); Neutrophil # 7.45 X10^3/uL (2.7-7.7); Neutrophil % 70.6 % (47-70); Platelet Count 697 K/mm3 (150-450); RBC Distribution Width CV 13.1 % (11.6-14.6); RBC Distribution Width SD 39.3 fl (35.1-43.9); Red Blood Count 5.71 M/mm3 (4.6-6.2); White Blood Count 10.5 K/mm3 (4.4-11.0)
[2021-12-07 16:03] LABS: Anion Gap 7 (5-15); BUN 12 mg/dL (7-18); BUN/Creat Ratio 12.5 RATIO (10-20); Calcium,Total 8.8 mg/dL (8.5-10.1); Chloride 103 mmol/L (98-107); Creatinine, Serum 0.96 mg/dL (0.70-1.30); EST Glomerular Filtration Rate 98 mL/min (>60); Est Glom Filt Rate - Afr Amer 118 mL/min (>60); Estimated Creatinine Clearance 101.53 ml/min; Glucose 120 mg/dL (74-106); Potassium 3.4 mmol/L (3.5-5.1); Sodium Level 137 mmol/L (136-145)
[2021-12-07] MEDS: Potassium Chloride Oral Tablet 20 MEQ PO (16:18)
[2021-12-07 17:27] LABS: Amphetamine Urine VISTA NEGATIVE (<1000 ng/mL); Barbiturate Urine VISTA NEGATIVE (< 200 ng/mL); Benzodiazepine Urine VISTA NEGATIVE (< 200 ng/mL); Cocaine Urine VISTA NEGATIVE (< 300 ng/mL); Ecstacy Urine VISTA NEGATIVE (< 500 ng/mL); Methadone Urine VISTA NEGATIVE (< 300 ng/mL); PCP Urine VISTA NEGATIVE (< 25 ng/mL); THC Urine VISTA NEGATIVE (< 50 ng/mL); Vista UDS pH Range 6
--- NOTE | 2021-12-07 17:29 | CM.ED ---
Social Work Telephone call to [facility], intake. There are open beds. Clinical information faxed. Will continue to follow. Amber MURRAY, GAGANDEEP
--- NOTE | 2021-12-07 19:59 | CM.ED ---
Social Work Telephone call to [facility], intake. This social services checking on status of referral, not able to accept anymore patients until tomorrow. Telephone call to [facility], intake. They have open beds. Clinical information faxed. Telephone call to [facility]. They have open beds. Clinical information faxed. PLAN: Inpatient psychiatric placement. Will continue to follow. Amber MURRAY, KATES
--- NOTE | 2021-12-07 20:21 | CM.ED ---
Addendum entered by Bree Macdonald 12/07/21 21:02: Jose Elias updated on patient disposition. Original Note: Social Work Telephone call from [facility] [place]. Patient has been accepted by Dr. Arredondo to the [facility]. Nurse to call report to [phone]. Medical team and patient updated. Telephone call to patient Jose Elias cooper. [facility] M[facility], GAGANDEEP
--- NOTE | 2021-12-07 23:54 | ED.RN ---
PATIENT WONT BE LEAVING UNTIL IN THE MORNING DUE TO STAFFING AT [facility].
[2021-12-08] VITALS (8 sets, daily range): BP systolic 128; BP diastolic 68; PULSE 88; RESP 16; TEMP 36.6; O2SAT 98
== END 2021-12-08 07:31 ==
PROVIDERS: Emergency Provider Student in an Organized Health Care Education/Training Program; Visit Provider Student in an Organized Health Care Education/Training Program
DX: F23 Brief psychotic disorder (principal); F25.9 Schizoaffective disorder, unspecified; F22 Delusional disorders
CPT/HCPCS: 51701; 36415; 80048; 80307; 82077; 85025; 87811; 99285; P9612

== ENCOUNTER 2022-02-02 12:20 | Emergency (ER) | payer MEDICAID, SELFPAY ==
[2022-02-02 12:20] VITALS: BP 115/87; PULSE 112; RESP 14; TEMP 36.8; O2SAT 97; BMI 27.8
--- NOTE | 2022-02-02 12:37 | ED.RN ---
Pt denies suicidal or homicidal ideations.
[2022-02-02 13:29] LABS: Absolute Neutrophil Count 5.1 X10^3/uL (2.0-7.7); Basophil# 0.05 X10^3/uL; Basophil% 0.6 % (0-1); Eosinophil# 0.12 X10^3/uL; Eosinophils% 1.4 % (0-5); Hematocrit 43.9 % (40-54); Hemoglobin 15.3 g/dL (13.0-16.5); Lymphocyte % 30.6 % (19-41); Mean Corp Hgb Conc 34.9 g/dL (32-36); Mean Corpuscular Volume 80.4 fL (80-94); Mean Platelet Vol. 9.2 fl (6.2-12.0); Monocyte# 0.63 X10^3/uL; Monocyte% 7.4 % (0-10); NRBC Flagged by Analyzer 0 % (0-5); Neutrophil # 5.07 X10^3/uL (2.7-7.7); Neutrophil % 59.6 % (47-70); Platelet Count 629 K/mm3 (150-450); RBC Distribution Width CV 13.1 % (11.6-14.6); RBC Distribution Width SD 37.3 fl (35.1-43.9); Red Blood Count 5.46 M/mm3 (4.6-6.2); White Blood Count 8.5 K/mm3 (4.4-11.0)
[2022-02-02 13:44] LABS: ALB/GLOB Ratio 1.2 RATIO (0.9-2.4); AST(SGOT) 18 U/L (15-37); Alanine Aminotransfer ALT/SGPT 26 U/L (16-61); Alkaline Phosphatase 87 U/L (45-117); Anion Gap 7 (5-15); BUN 11 mg/dL (7-18); BUN/Creat Ratio 11.2 RATIO (10-20); Calcium,Total 9.2 mg/dL (8.5-10.1); Chloride 104 mmol/L (98-107); Creatinine, Serum 0.98 mg/dL (0.70-1.30); EST Glomerular Filtration Rate 95 mL/min (>60); Est Glom Filt Rate - Afr Amer 115 mL/min (>60); Estimated Creatinine Clearance 92.29 ml/min; Globulin 3.2 g/dL (2.2-4.2); Glucose 98 mg/dL (74-106); Potassium 3.5 mmol/L (3.5-5.1); Protein, Total 7.2 g/dL (6.4-8.2); Sodium Level 137 mmol/L (136-145)
--- NOTE | 2022-02-02 13:52 | EX.ED.VIS.PS ---
HPI HPI - Psych History of Present Illness Chief Complaint: Mental Status Change Detail of Chief Complaint: Bizarre behavior Informant: patient and other Onset/Context/Timing Onset: - (Unknown) Context: Sudden Onset (Unknown) Conflict: - (Unknown) Timing: Continuous (Presumed continuous) Current Severity: Severe Maximum Severity: Severe Worsened by: - (Unknown) Relieved by: Unknown Associated Symptoms Associated Symptoms - Psych: Positive for Easily distracted (Patient will look to the left and upward and pause before answering any questions asked); Negative for Suicidal Thoughts Specific plan (suicidal thought): Denies Narrative Narrative: Patient is a 31-year-old male with history of schizophrenia and psychosis who was brought to the emergency room because of bizarre behavior. He is very slow to response and voice is soft. His words at times are not audible enough for me to determine what he is saying. Simple yes/no questions were asked we cannot. He apparently lives with his father. Unable to determine whether he uses drugs or not or drinks. Will review prior records. Difficult to obtain history. He nodded no to homicidal thoughts. He nodded no to chest pain or shortness of breath. He nodded no to abdominal pain or vomiting. Prior similar symptoms: Yes Recent Illness/Hospitalization: [facility] Medical History Schizo-affective psychosis Schizoaffective disorder Home Medications aripiprazole 30 mg DAILY 05/10/21 [History Last Taken Unknown] Allergy/AdvReac Type Severity Reaction Status Date / Time haloperidol [From Haldol] Allergy Other Verified 02/02/22 12:20 peanut Allergy Food Verified 02/02/22 12:20 Allergy sulfamethoxazole Allergy Itching Verified 02/02/22 12:20 [From Bactrim] trimethoprim [From Bactrim] Allergy Itching Verified 02/02/22 12:20 Social History (Updated 02/02/22 @ 13:[address] Onel Maxwell MD) household members: family Smoking Status: Unknown if ever smoked ROS ROS ED Review of Systems ROS Unobtainable: due to mental condition and other Details: What is documented in the narrative portion of the HPI is all that I was able to obtain. EXAM Physical Exam Const Vital Signs: 02/02/22 12:20 Temperature 98.3 F Temperature Source Temporal Pulse Rate 112 H Respiratory Rate 14 Blood Pressure 115/87 H Blood Pressure Mean 96 Pulse Ox 97 Oxygen Delivery Method Room Air Positive well nourished, well developed, obese and unkempt General Appearance ED: unkempt, well developed and NAD; Negative for pallor Nutritional Appearance: obese HEENT Reports TM's clear and moist mucous membranes normocephalic and atraumatic Tympanic Membrane ED: Yes TM's clear Eyes PERRL and EOMs intact bilaterally General Eye ED: Negative for pale conjunctiva or scleral icterus Neck no lymphadenopathy, supple and no JVD Resp normal respiratory effort and clear to auscultation bilaterally Cardio S1 normal heart sound, S2 normal heart sound and no murmurs Rate: regular rate Rhythm: regular rhythm GI non-tender, non-distended and no masses Auscultation: normoactive bowel sounds Palpation: soft Back/Spine no CVA tenderness Cervical Spine: Negative for cervical spine tenderness Thoracic Spine / Upper Back: Negative for thoracic spinal tenderness Lumbar Spine / Lower Back: Negative for lumbar spinal tenderness Extremity normal to inspection General Extremety ED: Negative for edema or tenderness General Extremity: Negative for edema Neuro Neuro Narrative: Unable to determine patient's oriented. Psych denies homicidal ideation and denies suicidal ideation Appearance: unkempt and bizarre Attitude: withdrawn and guarded Activity / Motor Behavior: psychomotor slowing, disorganized and avoids eye contact Speech: minimal, slow, soft and delayed Mood & Affect: depressed Thought Process: other Unable to determine Thought Content: No suicidality and No homicidality Memory / Cognition: cognition grossly intact and cognition impaired Insight: poor Judgement: poor Skin General Skin Exam: Negative for jaundice or pallor Lesions: no lesions Rashes: no rashes MDM MDM MDM Narrative Medical decision making narrative: Patient with presumed exacerbation of his schizophrenia. Will obtain appropriate laboratory studies and urine to rule out metabolic or infectious causes of patient's abnormal and bizarre behavior. Suspect he has auditory hallucinations since he will look up into the left and stare for 10 to 15 seconds before responding. When asked if he is hearing or seeing anything he looked away for me. Lab Data Attestation: I reviewed the patient's lab results. Lab results narrative: Laboratory evaluation is unremarkable. Tox is negative. Labs: Laboratory Results - last 24 hr 02/02/22 02/02/22 02/02/22 13:21 13:21 13:21 WBC 8.5 RBC 5.46 Hgb 15.3 Hct 43.9 MCV 80.4 MCH 28.0 MCHC 34.9 RDW Std Deviation 37.3 RDW Coeff of Javy 13.1 Plt Count 629 H MPV 9.2 Immature Gran % (Auto) 0.400 Neut % (Auto) 59.6 Lymph % (Auto) 30.6 Marin % (Auto) 7.4 Eos % (Auto) 1.4 Baso % (Auto) 0.6 Absolute Neuts (auto) 5.1 Absolute Lymphs (auto) 2.60 Nucleated RBC % 0 Sodium 137 Potassium 3.5 Chloride 104 Carbon Dioxide 26.0 Anion Gap 7 BUN 11 Creatinine 0.98 Estim Creat Clear Calc 92.29 Est GFR (MDRD) Af Amer 115 Est GFR (MDRD) Non-Af 95 BUN/Creatinine Ratio 11.2 Glucose 98 Calcium 9.2 Total Bilirubin 1.40 H AST 18 ALT 26 Alkaline Phosphatase 87 Total Protein 7.2 Albumin 4.0 Globulin 3.2 Albumin/Globulin Ratio 1.2 Urine Color Urine Clarity Urine pH Ur Specific Sterling Urine Protein Urine Glucose (UA) Urine Ketones Urine Occult Blood Urine Nitrite Urine Bilirubin Urine Urobilinogen Ur Leukocyte Esterase Urine RBC Urine WBC Ur Squamous Epith Cells Urine Bacteria Urine Mucus Urine Opiates Screen Urine Methadone Screen Ur Barbiturates Screen Ur Phencyclidine Scrn Ur Amphetamines Screen MDMA (Ecstasy) Screen U Benzodiazepines Scrn Urine Cocaine Screen U Cannabinoids Screen Ur Drug Screen Comment Ethyl Alcohol 6.0 02/02/22 02/02/22 13:50 13:50 WBC RBC Hgb Hct MCV MCH MCHC RDW Std Deviation RDW Coeff of Javy Plt Count MPV Immature Gran % (Auto) Neut % (Auto) Lymph % (Auto) Marin % (Auto) Eos % (Auto) Baso % (Auto) Absolute Neuts (auto) Absolute Lymphs (auto) Nucleated RBC % Sodium Potassium Chloride Carbon Dioxide Anion Gap BUN Creatinine Estim Creat Clear Calc Est GFR (MDRD) Af Amer Est GFR (MDRD) Non-Af BUN/Creatinine Ratio Glucose Calcium Total Bilirubin AST ALT Alkaline Phosphatase Total Protein Albumin Globulin Albumin/Globulin Ratio Urine Color Yellow Urine Clarity Clear Urine pH 6.5 Ur Specific Sterling 1.010 Urine Protein Negative Urine Glucose (UA) Normal Urine Ketones Negative Urine Occult Blood Negative Urine Nitrite Negative Urine Bilirubin Negative Urine Urobilinogen Normal Ur Leukocyte Esterase 25 H Urine RBC 0 SEEN Urine WBC 0 SEEN Ur Squamous Epith Cells 0-5 SEEN Urine Bacteria RARE Urine Mucus 0 SEEN Urine Opiates Screen NEGATIVE Urine Methadone Screen NEGATIVE Ur Barbiturates Screen NEGATIVE Ur Phencyclidine Scrn NEGATIVE Ur Amphetamines Screen NEGATIVE MDMA (Ecstasy) Screen NEGATIVE U Benzodiazepines Scrn NEGATIVE Urine Cocaine Screen NEGATIVE U Cannabinoids Screen NEGATIVE Ur Drug Screen Comment Ethyl Alcohol Discharge Plan Triage Chief Complaint: Mental Status Change ED Provider: Onel Maxwell Dx/Rx/DC Orders Clinical Impression: Acute exacerbation of chronic schizophrenia Prescriptions: No Action aripiprazole 30 mg tablet 30 mg DAILY RF: 0 Primary Care Provider: Care Physician,No Primary Referrals: Care Physician,No Primary [Primary Care Provider] - Disposition Disposition: Psychiatric Hospital or Unit
[2022-02-02 13:57] LABS: Mucous, Urine 0 SEEN /hpf (<or=2+); Red Blood Cells-Urine 0 SEEN /hpf (0-5); White Blood Cells 0 SEEN /hpf (0-5)
[2022-02-02 14:09] LABS: Color, Urine Yellow (Yellow); Glucose, Dipstick Normal (Normal); Ketone-Dipstick Negative (Negative); Leukocyte Esterase-Dipstick 25 /ul (Negative); Nitrite-Dipstick Negative (Negative); Occult Blood-Urine Negative /ul (Negative); Protein-Dipstick Negative (Negative); Urine Bilirubin Dipstick Negative (Negative); Urine Clarity Clear (Clear); Urine Urobilinogen Normal (Normal); Urine pH 6.5 (5.0 - 8.0)
[2022-02-02 14:14] LABS: Amphetamine Urine VISTA NEGATIVE (<1000 ng/mL); Barbiturate Urine VISTA NEGATIVE (< 200 ng/mL); Benzodiazepine Urine VISTA NEGATIVE (< 200 ng/mL); Cocaine Urine VISTA NEGATIVE (< 300 ng/mL); Ecstacy Urine VISTA NEGATIVE (< 500 ng/mL); Methadone Urine VISTA NEGATIVE (< 300 ng/mL); PCP Urine VISTA NEGATIVE (< 25 ng/mL); THC Urine VISTA NEGATIVE (< 50 ng/mL); Vista UDS pH Range 6
[2022-02-02 14:20] LABS: Bacteria RARE /hpf (None Seen); Squamous Epithelial Cells - UA 0-5 SEEN /hpf (0-5)
[2022-02-02 15:00] VITALS: RESP 15
[2022-02-02 17:00] VITALS: BP 120/79; PULSE 81; RESP 16; O2SAT 99
--- NOTE | 2022-02-02 20:05 | EKG12_ITS ---
Test Reason : MEDICAL CLEARANCE Blood Pressure : / mmHG Vent. Rate : 087 BPM Atrial Rate : 087 BPM P-R Int : 146 ms QRS Dur : 096 ms QT Int : 366 ms P-R-T Axes : 052 010 022 degrees QTc Int : 440 ms Normal sinus rhythm Normal ECG Confirmed by KISHORE VIGIL, DANNA ([id number]), editorial manager GASTON CHAMBERS ([id number]) on 02/03/2022 11:13:07 AM Referred By: ARTHUR Confirmed By:DANNA NOVAK MD
[2022-02-02 20:43] VITALS: BP 129/87; PULSE 87; RESP 16; TEMP 36.6; O2SAT 96
[2022-02-02 23:21] VITALS: RESP 16
[2022-02-03 01:00] VITALS: RESP 17
[2022-02-03 04:45] VITALS: BP 122/60; PULSE 78; RESP 18
[2022-02-03 06:25] VITALS: RESP 15
[2022-02-03 10:10] VITALS: BP 124/68; PULSE 72; RESP 16; O2SAT 97
--- NOTE | 2022-02-03 10:11 | ED.RN ---
PT IS CURRENTLY PACING AROUND THE ROOM. NO DISTRESS NOTED. PT DENIES ANY NEEDS AT THIS TIME
--- NOTE | 2022-02-03 10:30 | ED.RN ---
ATTEMPTED TO CALL REPORT MULTIPLE TIMES AND NO ONE ANSWERED THE PHONE. CONTINUED TO RING WITH NO OPTION OF LEAVING A MESSAGE
== END 2022-02-03 10:32 ==
PROVIDERS: Emergency Provider Emergency Medicine; Visit Provider Emergency Medicine
DX: F20.9 Schizophrenia, unspecified (principal)
CPT/HCPCS: 36415; 80053; 80307; 81001; 82077; 85025; 87811; 93005; 99285

== ENCOUNTER 2022-03-13 09:23 | Emergency (ER) | payer MEDICAID, SELFPAY ==
[2022-03-13] VITALS (12 sets, daily range): BP systolic 125–127; BP diastolic 68–83; PULSE 16–86; RESP 14–18; TEMP 36.9; O2SAT 96–98; BMI 28.1
--- NOTE | 2022-03-13 09:41 | EX.ED.VIS.PS ---
HPI HPI - Psych History of Present Illness Chief Complaint: Mental Health Detail of Chief Complaint: Hallucinations/schizophrenia Informant: patient Narrative Narrative: Patient presents to the emergency department stating that he was brought in by his father. Patient states that he has been hallucinating and seeing demons. Patient tells me he is out of his medication and missed his appointment 6 days ago to see his psychiatrist. He denies feeling suicidal. He denies feeling homicidal. Denies illness otherwise. Patient states that he feels like he needs to be admitted to a psychiatric facility and his father apparently feels the same way. Prior similar symptoms: Yes PFSH PFS Medical History Schizo-affective psychosis Schizoaffective disorder Home Medications aripiprazole 30 mg tablet 30 mg DAILY 05/10/21 [History Last Taken Unknown] Allergy/AdvReac Type Severity Reaction Status Date / Time haloperidol [From Haldol] Allergy Other Verified 03/13/22 09:25 peanut Allergy Food Verified 03/13/22 09:25 Allergy sulfamethoxazole Allergy Itching Verified 03/13/22 09:25 [From Bactrim] trimethoprim [From Bactrim] Allergy Itching Verified 03/13/22 09:25 Social History (Updated 02/02/22 @ 13:[address] Onel Maxwell MD) household members: family Smoking Status: Unknown if ever smoked ROS ROS ED Review of Systems ROS Unobtainable: other Constitutional Constitutional ED: Reports lethargy; Denies chills, fever(s), sweats or weight loss Eyes Eyes: Denies blurry vision, change in vision or diplopia ENT ENT ED: Denies rhinorrhea or sore throat Cardiovascular Cardiovascular: Reports chest pain and racing heartbeat; Denies orthopnea Respiratory/Chest Respiratory/Chest: Reports dyspnea and dyspnea on exertion; Denies cough, orthopnea or sputum Gastrointestinal Gastrointestinal: Denies abdominal pain, diarrhea, nausea or vomiting Genitourinary Genitourinary ED: Denies dysuria, hematuria or urinary frequency Musculoskeletal Musculoskeletal: Denies arthralgias, back pain, myalgias or neck pain Integumentary Denies abscess, Abrasions or rash Neurologic Neurologic: Denies headache(s) or weakness Psychiatric Psychiatric: Reports other Details: Visual hallucinations Auditory hallucinations ; Denies anxiety, depression or suicidal thoughts Endocrine Endocrinology: Denies polydipsia, polyphagia or polyuria Hematologic/Lymphatic Hematologic/Lymphatic: Denies easy bleeding, easy bruising or lymphadenopathy Allergic/Immunologic Allergic/Immunologic ED: Denies mouth swelling, tongue swelling or urticaria EXAM Physical Exam Const Vital Signs: 03/13/22 09:24 03/13/22 11:08 03/13/22 12:00 Temperature 98.4 F Temperature Source Temporal Pulse Rate 75 Respiratory Rate 14 16 16 Blood Pressure 125/83 H Blood Pressure Mean 97 Pulse Ox 96 Oxygen Delivery Method Room Air Room Air Room Air Positive well nourished, well developed and unkempt General Appearance ED: unkempt, well developed and NAD HEENT Reports TM's clear and moist mucous membranes normocephalic and atraumatic; Negative for trauma or tenderness Tympanic Membrane ED: Yes TM's clear Eyes PERRL and EOMs intact bilaterally General Eye ED: Negative for pale conjunctiva or scleral icterus Neck no lymphadenopathy, supple and no JVD General: Negative for tenderness Chest Wall inspection of chest normal and palpation of chest normal Chest: Negative for tenderness Resp normal respiratory effort and clear to auscultation bilaterally Effort and Inspection: Negative for respiratory distress or pain with movement Auscultation: Negative for rhonchi, wheezes or diminished lung sounds Cardio regular rate, regular rhythm, S1 normal heart sound, S2 normal heart sound and no murmurs Peripheral Pulses: pulses 2+ throughout GI normal to inspection, nondistended, normoactive bowel sounds, soft to palpation, non-tender, non-distended and no masses Back/Spine no CVA tenderness and no thoracic nor lumbar tenderness Extremity normal to inspection General Extremety ED: Negative for edema General Extremity: Negative for edema Neuro oriented x3, CN's II-XII intact bilaterally, no sensory deficits noted and gait normal Sensorium / Orientation: awake, alert, oriented to person, oriented to place and oriented to time Motor Exam: strength 5/5 throughout and strength abnormal Psych mental status grossly normal, cooperative, denies homicidal ideation and denies suicidal ideation Appearance: unkempt Attitude: calm Speech: slow Thought Process: flight of ideas Skin no rashes or lesions noted and no wounds MDM MDM MDM Narrative Medical decision making narrative: Lab work-up was unremarkable. Patient was evaluated by crisis who recommended placement to psychiatric facility for stabilization and definitive care. I am in agreement and patient voluntarily willing to go to psychiatric facility. Lab Data Attestation: I reviewed the patient's lab results. Labs: Laboratory Results - last 24 hr 03/13/22 03/13/22 03/13/22 09:46 09:55 09:55 WBC 6.4 RBC 5.44 Hgb 15.1 Hct 44.8 MCV 82.4 MCH 27.8 MCHC 33.7 RDW Std Deviation 40.1 RDW Coeff of Javy 13.7 Plt Count 472 H MPV 9.2 Immature Gran % (Auto) 0.300 Neut % (Auto) 59.0 Lymph % (Auto) 30.3 [place] % (Auto) 7.0 Eos % (Auto) 2.5 Baso % (Auto) 0.9 Absolute Neuts (auto) 3.8 Absolute Lymphs (auto) 1.95 Nucleated RBC % 0 Sodium 138 Potassium 3.7 Chloride 104 Carbon Dioxide 25.0 Anion Gap 9 BUN 7 Creatinine 0.83 Estim Creat Clear Calc 113.20 Est GFR (MDRD) Af Amer 139 Est GFR (MDRD) Non-Af 115 BUN/Creatinine Ratio 8.4 L Glucose 102 Calcium 9.1 Urine Opiates Screen NEGATIVE Urine Methadone Screen NEGATIVE Ur Barbiturates Screen NEGATIVE Ur Phencyclidine Scrn NEGATIVE Ur Amphetamines Screen NEGATIVE MDMA (Ecstasy) Screen NEGATIVE U Benzodiazepines Scrn NEGATIVE Urine Cocaine Screen NEGATIVE U Cannabinoids Screen NEGATIVE Ur Drug Screen Comment Ethyl Alcohol 03/13/22 09:55 WBC RBC Hgb Hct MCV MCH MCHC RDW Std Deviation RDW Coeff of Javy Plt Count MPV Immature Gran % (Auto) Neut % (Auto) Lymph % (Auto) [place] % (Auto) Eos % (Auto) Baso % (Auto) Absolute Neuts (auto) Absolute Lymphs (auto) Nucleated RBC % Sodium Potassium Chloride Carbon Dioxide Anion Gap BUN Creatinine Estim Creat Clear Calc Est GFR (MDRD) Af Amer Est GFR (MDRD) Non-Af BUN/Creatinine Ratio Glucose Calcium Urine Opiates Screen Urine Methadone Screen Ur Barbiturates Screen Ur Phencyclidine Scrn Ur Amphetamines Screen MDMA (Ecstasy) Screen U Benzodiazepines Scrn Urine Cocaine Screen U Cannabinoids Screen Ur Drug Screen Comment Ethyl Alcohol 3.0 Discharge Plan Triage Chief Complaint: Mental Health ED Provider: Owen Danielson Dx/Rx/DC Orders Clinical Impression: Schizophrenia, Psychosis Prescriptions: No Action aripiprazole 30 mg tablet 30 mg DAILY Label Comments: Take 1/2 tablet at 900 am, and 1/2 tablet at 900 pm. Primary Care Provider: Care Physician,No Primary Referrals: Care Physician,No Primary [Primary Care Provider] - Disposition Disposition: Psychiatric Hospital or Unit
[2022-03-13 10:01] LABS: Absolute Lymphocyte Count 1.95 X10^3/uL (0.83-4.51); Absolute Neutrophil Count 3.8 X10^3/uL (2.0-7.7); Basophil# 0.06 X10^3/uL; Basophil% 0.9 % (0-1); Eosinophil# 0.16 X10^3/uL; Eosinophils% 2.5 % (0-5); Hematocrit 44.8 % (40-54); Hemoglobin 15.1 g/dL (13.0-16.5); Lymphocyte # 1.95 X10^3/ul (0.83-4.51); Lymphocyte % 30.3 % (19-41); Mean Corp Hgb Conc 33.7 g/dL (32-36); Mean Corpuscular Hgb 27.8 pg (27.0-32.0); Mean Corpuscular Volume 82.4 fL (80-94); Mean Platelet Vol. 9.2 fl (6.2-12.0); Monocyte# 0.45 X10^3/uL; NRBC Flagged by Analyzer 0 % (0-5); Platelet Count 472 K/mm3 (150-450); RBC Distribution Width CV 13.7 % (11.6-14.6); RBC Distribution Width SD 40.1 fl (35.1-43.9); Red Blood Count 5.44 M/mm3 (4.6-6.2); White Blood Count 6.4 K/mm3 (4.4-11.0)
[2022-03-13 10:10] LABS: Amphetamine Urine VISTA NEGATIVE (<1000 ng/mL); Barbiturate Urine VISTA NEGATIVE (< 200 ng/mL); Benzodiazepine Urine VISTA NEGATIVE (< 200 ng/mL); Cocaine Urine VISTA NEGATIVE (< 300 ng/mL); Ecstacy Urine VISTA NEGATIVE (< 500 ng/mL); Methadone Urine VISTA NEGATIVE (< 300 ng/mL); PCP Urine VISTA NEGATIVE (< 25 ng/mL); THC Urine VISTA NEGATIVE (< 50 ng/mL); Vista UDS pH Range 7
[2022-03-13 10:12] LABS: Anion Gap 9 (5-15); BUN 7 mg/dL (7-18); BUN/Creat Ratio 8.4 RATIO (10-20); Calcium,Total 9.1 mg/dL (8.5-10.1); Chloride 104 mmol/L (98-107); Creatinine, Serum 0.83 mg/dL (0.70-1.30); EST Glomerular Filtration Rate 115 mL/min (>60); Est Glom Filt Rate - Afr Amer 139 mL/min (>60); Glucose 102 mg/dL (74-106); Potassium 3.7 mmol/L (3.5-5.1); Sodium Level 138 mmol/L (136-145)
--- NOTE | 2022-03-13 15:50 | NURSING ---
[facility] CALLED 330PM AND WANT US TO FAX EKG, OUR NEG COVID AND THEIR COVID PAPER, MEDICAL CLEARANCE, AND PINKSLIP. THEN THEY WILL CALL BACK.
--- NOTE | 2022-03-13 16:23 | EKG12_ITS ---
Test Reason : Blood Pressure : / mmHG Vent. Rate : 080 BPM Atrial Rate : 080 BPM P-R Int : 146 ms QRS Dur : 094 ms QT Int : 380 ms P-R-T Axes : 050 014 020 degrees QTc Int : 438 ms Normal sinus rhythm Normal ECG Confirmed by MONICA VIGIL, LADONNA ([id number]), news videotape editor GASTON CHAMBERS ([id number]) on 03/15/2022 9:47:33 AM Referred By: RU Confirmed By:LADONNA ANDERSON MD
--- NOTE | 2022-03-13 23:42 | NURSING ---
[facility] CALLED AT [id number] TO SAY PATIENT IS ACCEPTED BUT THEY DO NOT HAVE ANY BEDS TONIGHT. THEY WILL CALL IN THE MORNING
[2022-03-14 00:38] VITALS: PULSE 16
[2022-03-14 01:00] VITALS: RESP 16
[2022-03-14 02:00] VITALS: RESP 14
[2022-03-14 06:20] VITALS: BP 116/75; PULSE 72; RESP 18; TEMP 36.8; O2SAT 97
--- NOTE | 2022-03-14 07:42 | NURSING ---
CALLED [facility]. TALKED TO GIDEON. WAITING ON DISCHARGES. TO CALL BACK IN 1.5 HRS
--- NOTE | 2022-03-14 09:13 | NURSING ---
spoke with Janina from crisis pt is accepted at [facility] just waiting on discharges. Janian is going to call [facility] to see if they have a time for pt to come.
--- NOTE | 2022-03-14 09:26 | NURSING ---
KATHLEEN, CRISIS. CALLED PATIENT ACCEPTED AT [facility], ADULT UNIT NURSE TO NURSE [phone] SANGITA GUZMÁN
--- NOTE | 2022-03-14 09:31 | NURSING ---
CALLED TRANSPORT, ETA IS 30 MIN. TALKED TO GASTON
[2022-03-14 09:38] VITALS: BP 112/74; PULSE 74; RESP 16; O2SAT 99
== END 2022-03-14 10:33 ==
PROVIDERS: Emergency Provider Emergency Medicine; Visit Provider Emergency Medicine
DX: F20.9 Schizophrenia, unspecified (principal); F29 Unspecified psychosis not due to a substance or known physiological condition
CPT/HCPCS: 80048; 80307; 82077; 85025; 87811; 93005; 99285; A4216

== ENCOUNTER 2022-03-28 13:12 | Emergency (ER) | payer MEDICAID, SELFPAY ==
[2022-03-28 13:14] VITALS: BP 123/77; PULSE 93; RESP 16; TEMP 36.9; O2SAT 96; BMI 26.4
--- NOTE | 2022-03-28 13:41 | EX.ED.VIS.PS ---
HPI HPI - Psych History of Present Illness Chief Complaint: Mental Health Informant: police/asset specialist Narrative Narrative: 31-year-old male presenting with police due to abnormal behavior. Patient was found walking down the street incoherent. He is well-known to the officers. He was pink slipped prior to arrival. He was recently admitted to a psychiatric facility. He has history of schizophrenia. He has been acting paranoid and was concerned about elf blood getting on him. Police state he was too scared to go into his house. Prior similar symptoms: Yes Recent Illness/Hospitalization: Yes PFSH PFSH Medical History Schizo-affective psychosis Schizoaffective disorder Home Medications aripiprazole 30 mg tablet 30 mg DAILY 05/10/21 [History Last Taken Unknown] Allergy/AdvReac Type Severity Reaction Status Date / Time haloperidol [From Haldol] Allergy Other Verified 03/28/22 13:12 peanut Allergy Food Verified 03/28/22 13:12 Allergy sulfamethoxazole Allergy Itching Verified 03/28/22 13:12 [From Bactrim] trimethoprim [From Bactrim] Allergy Itching Verified 03/28/22 13:12 Social History household members: family Smoking Status: Current every day smoker tobacco type: cigarettes ROS ROS ED Review of Systems ROS Unobtainable: due to mental status Constitutional Constitutional ED: Denies fever(s) EXAM Physical Exam Const Vital Signs: 03/28/22 13:14 Temperature 98.5 F Temperature Source Temporal Pulse Rate 93 Respiratory Rate 16 Blood Pressure 123/77 H Blood Pressure Mean 92 Pulse Ox 96 Oxygen Delivery Method Room Air Positive well nourished and well developed General Appearance ED: well developed HEENT Reports normocephalic and head/scalp atraumatic Eyes PERRL and EOMs intact bilaterally Neck supple General: Negative for tenderness Chest Wall inspection of chest normal Resp normal respiratory effort and clear to auscultation bilaterally Cardio regular rate and regular rhythm GI non-tender and non-distended Palpation: soft; Negative for guarding or rebound tenderness present Extremity normal to inspection Neuro Sensorium / Orientation: alert Psych Psych Narrative: Patient is laughing and responding to hallucinations. He is cooperative. Unable to provide history. MDM MDM MDM Narrative Medical decision making narrative: CBC, chemistries unremarkable. Alcohol is negative. Tox is negative. COVID is negative. Patient was evaluated by the vp digital marketing social media and crm in the Emergency Department and plan for placement in psychiatric facility. Lab Data Attestation: I reviewed the patient's lab results. Labs: Laboratory Results - last 24 hr 03/28/22 03/28/22 03/28/22 13:45 13:45 13:45 WBC 9.7 RBC 5.37 Hgb 15.0 Hct 44.9 MCV 83.6 MCH 27.9 MCHC 33.4 RDW Std Deviation 41.1 RDW Coeff of Javy 13.6 Plt Count 565 H MPV 8.7 Immature Gran % (Auto) 0.700 Neut % (Auto) 71.7 H Lymph % (Auto) 18.9 L [place] % (Auto) 6.8 Eos % (Auto) 1.2 Baso % (Auto) 0.7 Absolute Neuts (auto) 7.0 Absolute Lymphs (auto) 1.84 Nucleated RBC % 0 Sodium 141 Potassium 4.1 Chloride 103 Carbon Dioxide 31.0 Anion Gap 7 BUN 12 Creatinine 0.95 Estim Creat Clear Calc 95.20 Est GFR (MDRD) Af Amer 119 Est GFR (MDRD) Non-Af 99 BUN/Creatinine Ratio 12.6 Glucose 102 Calcium 9.3 Urine Opiates Screen Urine Methadone Screen Ur Barbiturates Screen Ur Phencyclidine Scrn Ur Amphetamines Screen MDMA (Ecstasy) Screen U Benzodiazepines Scrn Urine Cocaine Screen U Cannabinoids Screen Ur Drug Screen Comment Ethyl Alcohol < 3.0 03/28/22 13:45 WBC RBC Hgb Hct MCV MCH MCHC RDW Std Deviation RDW Coeff of Javy Plt Count MPV Immature Gran % (Auto) Neut % (Auto) Lymph % (Auto) [place] % (Auto) Eos % (Auto) Baso % (Auto) Absolute Neuts (auto) Absolute Lymphs (auto) Nucleated RBC % Sodium Potassium Chloride Carbon Dioxide Anion Gap BUN Creatinine Estim Creat Clear Calc Est GFR (MDRD) Af Amer Est GFR (MDRD) Non-Af BUN/Creatinine Ratio Glucose Calcium Urine Opiates Screen NEGATIVE Urine Methadone Screen NEGATIVE Ur Barbiturates Screen NEGATIVE Ur Phencyclidine Scrn NEGATIVE Ur Amphetamines Screen NEGATIVE MDMA (Ecstasy) Screen NEGATIVE U Benzodiazepines Scrn NEGATIVE Urine Cocaine Screen NEGATIVE U Cannabinoids Screen NEGATIVE Ur Drug Screen Comment Ethyl Alcohol Discharge Plan Triage Chief Complaint: Mental Health ED Provider: Annabella Pham Dx/Rx/DC Orders Clinical Impression: Schizophrenia, Psychosis Prescriptions: No Action aripiprazole 30 mg tablet 30 mg DAILY Label Comments: Take 1/2 tablet at 900 am, and 1/2 tablet at 900 pm. Primary Care Provider: Care Physician,No Primary Referrals: Care Physician,No Primary [Primary Care Provider] - Disposition Disposition: Psychiatric Hospital or Unit
[2022-03-28 13:57] LABS: Absolute Lymphocyte Count 1.84 X10^3/uL (0.83-4.51); Basophil# 0.07 X10^3/uL; Basophil% 0.7 % (0-1); Eosinophil# 0.12 X10^3/uL; Eosinophils% 1.2 % (0-5); Hematocrit 44.9 % (40-54); Lymphocyte # 1.84 X10^3/ul (0.83-4.51); Lymphocyte % 18.9 % (19-41); Mean Corp Hgb Conc 33.4 g/dL (32-36); Mean Corpuscular Hgb 27.9 pg (27.0-32.0); Mean Corpuscular Volume 83.6 fL (80-94); Mean Platelet Vol. 8.7 fl (6.2-12.0); Monocyte# 0.66 X10^3/uL; Monocyte% 6.8 % (0-10); NRBC Flagged by Analyzer 0 % (0-5); Neutrophil # 6.98 X10^3/uL (2.7-7.7); Neutrophil % 71.7 % (47-70); Platelet Count 565 K/mm3 (150-450); RBC Distribution Width CV 13.6 % (11.6-14.6); RBC Distribution Width SD 41.1 fl (35.1-43.9); Red Blood Count 5.37 M/mm3 (4.6-6.2); White Blood Count 9.7 K/mm3 (4.4-11.0)
[2022-03-28 14:08] LABS: Anion Gap 7 (5-15); BUN 12 mg/dL (7-18); BUN/Creat Ratio 12.6 RATIO (10-20); Calcium,Total 9.3 mg/dL (8.5-10.1); Chloride 103 mmol/L (98-107); Creatinine, Serum 0.95 mg/dL (0.70-1.30); EST Glomerular Filtration Rate 99 mL/min (>60); Est Glom Filt Rate - Afr Amer 119 mL/min (>60); Glucose 102 mg/dL (74-106); Potassium 4.1 mmol/L (3.5-5.1); Sodium Level 141 mmol/L (136-145)
[2022-03-28 14:10] LABS: Amphetamine Urine VISTA NEGATIVE (<1000 ng/mL); Barbiturate Urine VISTA NEGATIVE (< 200 ng/mL); Benzodiazepine Urine VISTA NEGATIVE (< 200 ng/mL); Cocaine Urine VISTA NEGATIVE (< 300 ng/mL); Ecstacy Urine VISTA NEGATIVE (< 500 ng/mL); Methadone Urine VISTA NEGATIVE (< 300 ng/mL); PCP Urine VISTA NEGATIVE (< 25 ng/mL); THC Urine VISTA NEGATIVE (< 50 ng/mL); Vista UDS pH Range 6
[2022-03-28 14:32] LABS: Alcohol, Blood (Medical)-Serum < 3.0 mg/dL
--- NOTE | 2022-03-28 15:01 | CM.ED ---
Social Work Assessment Social Work Psychiatric Assessment Reason for consult: Mental Health Informant(s): Pt, [employer], [place], Chart Review Chief Complaint: SW spoke with [employer]. Pt was found walking with no shoes and no shirt on the [place] [address]. Pt reported to be barely speaking and disheveled. Pt reported that he could not get into his house because of bad elf blood. Pt appears to be delusional, paranoid and is sexually preoccupied. [place] Slip has been completed for pt. Pt states that he was walking down the [address]. Pt states that he should?ve called. SW asked pt who he should?ve called and pt answered in mumble, incoherent speech. Pt with continued incoherent speech. Marital/Social History: Marital Status: Single Identified Gender: Male Sexual Orientation: Heterosexual Living Situation: Pt states that he lives with Jose Elias Du. SW asked pt if Jose Elias was his father and pt states he is. Pt states he cannot live with Jose Elias anymore though as he will not let him back. Support/Resources: Pt states he has no supports. History: None Education and Employment History: Pt states that he graduated high school. SW asked pt which high school he went to, pt answered with incoherent speech. SW asked pt if he went to [employer] and pt states ?Yeah [employer].? Mental Health Treatment/History: PT state that he does see a counselor/therapist. SW asked pt where he see?s [place] counselor/[place] ?[place] [id number] SW asked pt what he has been diagnosed with and pt states ?never diagnosed with Schizophrenia.? Per chart, pt has been diagnosed with schizoaffective disorder. SW asked pt if he has been to [facility] before and pt states ?hospital syndrome.? Per chart, pt has been to [facility], [facility], and [facility] before. SW asked pt if he has hearing voices, pt did not answer. SW asked pt if he was seeing things, pt states ?yeah seeing things not there.? Coping Skills: Pt states that he likes to speak and think about problems. SW asked pt what problems and pt states ?reduction problems.? SW asked pt what reduction problems were and pt responded with incoherent speech. Abuse Issues: Pt states none Substance Abuse Hx: Pt states none. Risk to Self/Others: ? Suicidal: Pt states no current thoughts or plans to harm self. ? Homicidal: Pt states no current thoughts or plans to harm others. ? Violence: Pt states no violence to self, others, or objects. Pt states no history of cutting. Mental Status Exam: Orientation: Alert and orientated x4. Memory: Poor Appearance/General Behavior: Disheveled, unkept. It was reported that pt was walking down the highway without shoes and shirt on. SW noticed that pt has very long fingernails. Mood/Affect: Bizarre Communication Pattern: Incoherent Thought Process: Delusions, Paranoid. Pt appeared to be responding to internal stimuli. General Intellectual Functioning: Below Average Judgment: Poor Insight: Poor Per Codell Slip, ?Individual is walking around the [facility] with only pants on. When spoken to he states comments like ?we have decided.? ?We are going to go here.? As if two or more people are present with him. Individual spoke of the [employer] technology that would not let him go into his home, or out of the cruiser. Spoke very quietly at times, and would almost seem like he just woke up at others.? KRISTEL discussed with MD Pham, plan is inpatient psychiatric hospitalization for Crisis Stabilization and Medication Management. Plan: Inpatient psychiatric hospitalization for Crisis Stabilization and Medication Management. Janina Silveira SEWER CONTRACTOR, BABY NURSE
--- NOTE | 2022-03-28 15:06 | CM.ED ---
Social Work Note Per chart, pt was recently at [facility] SW faxed referral to [facility]. Janina Silveira CLOTH SHADER, RETORT FIRER
[2022-03-28 17:11] VITALS: BP 123/91; PULSE 87; RESP 16; TEMP 36.7; O2SAT 99
--- NOTE | 2022-03-28 17:37 | CM.ED ---
Addendum entered by Janina Silveira 03/28/22 18:26: KRISTEL did update [facility] to disregard referral. Addendum entered by Janina Silveira 03/28/22 18:25: SW received call from [facility]. [facility] is able to accept pt. Accepting physician is Stefania SUN, pt going to Intensive Unit, RN to RN [phone] option 1. KRISTEL updated MD Smith. Janina MURRAY, CLEANER AND TRIMMER Original Note: Social Work Note SW placed a call to [facility]. [facility] state they have no beds available today but will have beds available tomorrow. KRISTEL asked [facility] to still review referral and then let this worker know if they can accept. KRISTEL also faxed referral to [facility] ([facility]). Janina MURRAY, CLEANER AND TRIMMER
--- NOTE | 2022-03-28 21:08 | ED.RN ---
Report given to Sheryl at [facility].
== END 2022-03-28 21:26 ==
PROVIDERS: Emergency Provider Emergency Medicine; Visit Provider Emergency Medicine
DX: F20.9 Schizophrenia, unspecified (principal); F17.210 Nicotine dependence, cigarettes, uncomplicated; Z79.899 Other long term (current) drug therapy
CPT/HCPCS: 80048; 80307; 82077; 85025; 87811; 99282

== ENCOUNTER 2022-04-05 03:57 | Emergency (ER) | payer MEDICAID, SELFPAY ==
[2022-04-05] VITALS (7 sets, daily range): BP systolic 105–134; BP diastolic 72–84; PULSE 63–70; RESP 15–18; TEMP 36.9; O2SAT 97–98
--- NOTE | 2022-04-05 04:08 | EX.ED.VIS.PS ---
HPI HPI - Psych History of Present Illness Chief Complaint: Mental Health Narrative Narrative: History and physical is limited secondary to psychiatric condition. Patient is minimally cooperative with answering questions. Per EMS, they were called to the scene by police because patient was found on the side of the road, mumbling and incoherent. He has past medical history of schizophrenia. He states he was recently released from a psychiatric institution 2 days ago. He has been noncompliant with medications, stating that he has not picked them up. He states that he was outside this early in the morning because he was kicked out of the house by his father for not having a job. While he does admit to hearing voices, he states they are not telling him to harm himself and he denies any suicidal ideation. He becomes psychotic, and starts mumbling and becoming more uncooperative. PFSH PFS Medical History Schizo-affective psychosis Schizoaffective disorder Home Medications NK 04/05/22 [History Last Taken Unknown] Allergy/AdvReac Type Severity Reaction Status Date / Time haloperidol [From Haldol] Allergy Other Verified 04/05/22 04:02 peanut Allergy Food Verified 04/05/22 04:02 Allergy sulfamethoxazole Allergy Itching Verified 04/05/22 04:02 [From Bactrim] trimethoprim [From Bactrim] Allergy Itching Verified 04/05/22 04:02 Social History household members: family Smoking Status: Current every day smoker tobacco type: cigarettes ROS ROS ED ROS Narrative Mildly limited to psychiatric disorder. Constitutional: No fever, no chills. HEENT: No sore throat. No neck pain. No loss of vision. No rhinorrhea. Cardiovascular: No chest pain. No palpitations. No pedal edema. Respiratory: No cough, no shortness of breath. Abdominal: No abdominal pain. No nausea. No vomiting. Genitourinary: No dysuria. No hematuria. Musculoskeletal: No myalgias. No arthralgias. Neurologic: No headaches. No dizziness. No lightheadedness. Skin: No rash. No change in color. Psychiatric: No depression. No anxiety. Positive auditory hallucinations. Abnormal behavior according to police/EMS. EXAM Physical Exam Narrative Exam Narrative: Afebrile. Vital signs noted. Mildly unkempt with long fingernails and toenails. HEENT: Normocephalic. Atraumatic. PERRL, EOMI. Neck soft and supple. No point tenderness or step off. Cardiovascular: Regular rate and rhythm. No murmurs, rubs, or gallops appreciated. Respiratory: No tachypnea. Lungs clear to auscultation bilaterally. Gastrointestinal: Abdomen soft, nontender, with normoactive bowel sounds. No rebound or guarding. Neurological: Awake. Alert. Nonfocal, nonlateralizing. Skin: No rash. Normal color. No pallor. Musculoskeletal: No pedal edema. Full range of motion extremities. Psychiatric: Occasionally evasive in answering questions, not making good eye contact, mumbling. Const Vital Signs: 04/05/22 03:59 Temperature 98.4 F Temperature Source Temporal Pulse Rate 67 Respiratory Rate 18 Blood Pressure 114/84 H Blood Pressure Mean 94 Pulse Ox 98 Oxygen Delivery Method Room Air MDM MDM MDM Narrative Medical decision making narrative: I reviewed his prior records. He was here and was transferred to a psychiatric facility for schizoaffective disorder/schizophrenia and psychosis. Medical clearance labs will be obtained again. Patient has slightly low WBC count of 4.0, hemoglobin normal at 14.7, hematocrit 44.5. Normal platelet count of 416. Electrolyte panel is grossly unremarkable. Ethyl alcohol is negative. Urine drug screen is negative. Of note, his COVID test is now positive. I do feel this may be why he has slightly low WBC count of 4.0. Regardless, he will be medically cleared for evaluation by crisis versus social work in the morning. He will be signed out to the oncoming physician to make final disposition. Currently, he is in stable condition. Lab Data Attestation: I reviewed the patient's lab results. Labs: Laboratory Results - last 24 hr 04/05/22 04/05/22 04/05/22 04:15 04:15 04:15 WBC 4.0 L RBC 5.32 Hgb 14.7 Hct 44.5 MCV 83.6 MCH 27.6 MCHC 33.0 RDW Std Deviation 42.4 RDW Coeff of Javy 13.9 Plt Count 416 MPV 8.9 Immature Gran % (Auto) 0.300 Neut % (Auto) 44.0 L Lymph % (Auto) 43.6 H [place] % (Auto) 10.6 H Eos % (Auto) 1.0 Baso % (Auto) 0.5 Absolute Neuts (auto) 1.8 L Absolute Lymphs (auto) 1.73 Nucleated RBC % 0 Sodium 139 Potassium 3.9 Chloride 103 Carbon Dioxide 31.0 Anion Gap 5 BUN 11 Creatinine 0.92 Estim Creat Clear Calc 98.31 Est GFR (MDRD) Af Amer 123 Est GFR (MDRD) Non-Af 102 BUN/Creatinine Ratio 11.9 Glucose 96 Calcium 9.0 Urine Opiates Screen Urine Methadone Screen Ur Barbiturates Screen Ur Phencyclidine Scrn Ur Amphetamines Screen MDMA (Ecstasy) Screen U Benzodiazepines Scrn Urine Cocaine Screen U Cannabinoids Screen Ur Drug Screen Comment Ethyl Alcohol < 3.0 04/05/22 05:20 WBC RBC Hgb Hct MCV MCH MCHC RDW Std Deviation RDW Coeff of Javy Plt Count MPV Immature Gran % (Auto) Neut % (Auto) Lymph % (Auto) [place] % (Auto) Eos % (Auto) Baso % (Auto) Absolute Neuts (auto) Absolute Lymphs (auto) Nucleated RBC % Sodium Potassium Chloride Carbon Dioxide Anion Gap BUN Creatinine Estim Creat Clear Calc Est GFR (MDRD) Af Amer Est GFR (MDRD) Non-Af BUN/Creatinine Ratio Glucose Calcium Urine Opiates Screen NEGATIVE Urine Methadone Screen NEGATIVE Ur Barbiturates Screen NEGATIVE Ur Phencyclidine Scrn NEGATIVE Ur Amphetamines Screen NEGATIVE MDMA (Ecstasy) Screen NEGATIVE U Benzodiazepines Scrn NEGATIVE Urine Cocaine Screen NEGATIVE U Cannabinoids Screen NEGATIVE Ur Drug Screen Comment Ethyl Alcohol Discharge Plan Triage Chief Complaint: Mental Health ED Provider: Vega Diana Dx/Rx/DC Orders Clinical Impression: Psychosis, Schizophrenia, Auditory hallucinations, COVID Prescriptions: No Action NK Primary Care Provider: Care Physician,No Primary Referrals: Care Physician,No Primary [Primary Care Provider] -
[2022-04-05 04:20] LABS: Absolute Lymphocyte Count 1.73 X10^3/uL (0.83-4.51); Absolute Neutrophil Count 1.8 X10^3/uL (2.0-7.7); Basophil# 0.02 X10^3/uL; Basophil% 0.5 % (0-1); Eosinophil# 0.04 X10^3/uL; Hematocrit 44.5 % (40-54); Hemoglobin 14.7 g/dL (13.0-16.5); Lymphocyte # 1.73 X10^3/ul (0.83-4.51); Lymphocyte % 43.6 % (19-41); Mean Corpuscular Hgb 27.6 pg (27.0-32.0); Mean Corpuscular Volume 83.6 fL (80-94); Mean Platelet Vol. 8.9 fl (6.2-12.0); Monocyte# 0.42 X10^3/uL; Monocyte% 10.6 % (0-10); NRBC Flagged by Analyzer 0 % (0-5); Neutrophil # 1.75 X10^3/uL (2.7-7.7); Platelet Count 416 K/mm3 (150-450); RBC Distribution Width CV 13.9 % (11.6-14.6); RBC Distribution Width SD 42.4 fl (35.1-43.9); Red Blood Count 5.32 M/mm3 (4.6-6.2)
[2022-04-05 04:33] LABS: Anion Gap 5 (5-15); BUN 11 mg/dL (7-18); BUN/Creat Ratio 11.9 RATIO (10-20); Chloride 103 mmol/L (98-107); Creatinine, Serum 0.92 mg/dL (0.70-1.30); EST Glomerular Filtration Rate 102 mL/min (>60); Est Glom Filt Rate - Afr Amer 123 mL/min (>60); Estimated Creatinine Clearance 98.31 ml/min; Glucose 96 mg/dL (74-106); Potassium 3.9 mmol/L (3.5-5.1); Sodium Level 139 mmol/L (136-145)
[2022-04-05 04:49] LABS: Alcohol, Blood (Medical)-Serum < 3.0 mg/dL
[2022-04-05 06:14] LABS: Amphetamine Urine VISTA NEGATIVE (<1000 ng/mL); Barbiturate Urine VISTA NEGATIVE (< 200 ng/mL); Benzodiazepine Urine VISTA NEGATIVE (< 200 ng/mL); Cocaine Urine VISTA NEGATIVE (< 300 ng/mL); Ecstacy Urine VISTA NEGATIVE (< 500 ng/mL); Methadone Urine VISTA NEGATIVE (< 300 ng/mL); PCP Urine VISTA NEGATIVE (< 25 ng/mL); THC Urine VISTA NEGATIVE (< 50 ng/mL); Vista UDS pH Range 5
--- NOTE | 2022-04-05 11:11 | CM.ED ---
Social Work Note SW placed a call to [facility] and spoke with Aaliyah. Aaliyah states they were not notified that pt needed to be seen, assessment has not been completed. SW informed [facility] that pt has been at [facility] for seven hours, [facility] should've been called. SW to complete assessment on pt. SW updated lithographic photographer, states that [facility] was called last night. SW updated lithographic photographer that SW will complete assessment. SW to complete assessment. Pt has been [place] Slipped to [facility]. Janina Silveira HEALTH COACH, BENCH ASSEMBLER ELECTRICAL
--- NOTE | 2022-04-05 12:37 | CM.ED ---
Social Work Note SW reviewed chart. Pt is COVID positive. KRISTEL spoke with Zoraida at [facility]. Zoraida states she is not aware of any psych hospitals that will take COVID+ patients. SW to meet with pt to complete assessment. Janina Silveira GI TECHNICIAN, ORNAMENTAL PLASTER STICKER
--- NOTE | 2022-04-05 17:48 | CM.ED ---
Social Work Assessment Social Work Psychiatric Assessment Reason for consult: Mental Health Informant(s): Pt, [place], Chart review Chief Complaint: ED triage states EMS was called by police for patient sitting on the side of the road not answering questions. Patient mumbling and difficult understanding. Pt [place] at [facility]. SW in to speak with pt. Pt states that the machine specialist brought him to [facility] because he was on the streets. Pt states that he was here in [place], [place]. Pt with mumble, incoherent speech. Marital/Social History: Marital Status: Single Identified Gender: Male Sexual Orientation: Heterosexual Living Situation: Pt states that he has no where to stay and is homeless. Pt states that he was kicked out of his Dad?s house. Pt told this worker that his Dad did not give a reason why he was kicked out. Per chart, pt was kicked out of the house by his father for not having a job. Pt states that he is homeless. Support/Resources: Pt states he has no support. History: None Education and Employment History: Pt states he is not currently employed. Pt states that he graduated high school and had no learning difficulties. Mental Health Treatment/History: Pt states he has no Mental Health History. Per chart, pt has been diagnosed with Schizo-affective psychosis and Schizoaffective disorder. Pt states that he is not on any medications. Pt states that he is supposed to be taking a medication but states he was not able to pear picker the medication. Pt states that he has been to [facility] before, states he was just at one two days ago. Pt states it was in [place]. Pt states the [facility] started him on medication but again states he was not able to get the medication. Per chart, pt has been to [facility], [facility], [facility], and [facility] before. Pt states he is not currently seeing a therapist. Pt states that he was arranged to [facility] a [facility] but states he is not sure when the appointment is. Triggers/Stressors: Pt states he has no current stress. Coping Skills: Pt states he has none. Abuse Issues: Pt states none Substance Abuse Hx: Pt states none Risk to Self/Others: ? Suicidal: Pt states no current suicidal thoughts/plans/ideations. Pt states no history of suicidal thoughts/plans/ideations. Pt states no previous suicide attempts. ? Homicidal: Pt states none ? Violence: Pt states none Mental Status Exam: Orientation: Pt is alert and orientated x4. Memory: Poor Appearance/General Behavior: Disheveled, unclean. Pt with long dirty fingernails and dirty feet. SW asked pt about his dirty feet. Pt states that he was walking with no shoes on. Mood/Affect: Bizarre Communication Pattern: Incoherent. Pt would answer a question and then mumble after answering question. Pt with incoherent speech throughout assessment. Thought Process: Pt appeared to may be responding to internal stimuli as evidenced by answering a question and then mumbling, incoherent speech. Pt told this worker that this worker was ?going to disappear in two minutes.? SW asked pt where this worker was going to disappear today and pt mumbled ?two minutes.? Pt said that he was going to a psychiatric hospital and the machine specialist brought him to [facility] to get him to a psych hospital. General Intellectual Functioning: Below Average Judgment: Poor Insight: Poor Pt was [place] Slipped at [facility]. Per [place], ?Miquel has been non-compliant with medication therapy and continues to have auditory hallucinations. He is unable to care for himself and remains psychotic. He would benefit from further psychiatric evaluation and treatment for his mental illness.? KRISTEL discussed with MD Fierro and recommendation is inpatient psychiatric hospitalization for Medication Management and Crisis Stabilization. Plan: Inpatient psychiatric hospitalization for Medication Management and Crisis Stabilization. Janina Silveira POCKET CUTTER, FELT STRIP FINISHER
--- NOTE | 2022-04-05 17:49 | CM.ED ---
Social Work Note KRISTEL received call from Zoraida at [facility] stating [facility] will only take COVID psych patients that are in their county. Zoraida states that at one time, [facility] had a COVID Unit for psych and so did [facility]. Zoraida states no free standing hospital will take COVID positive patients. KRISTEL to call Psych Hospitals to inquire about policy for COVID positive psych patients. Janina Silveira REGISTERED REPRESENTATIVE, LABORER BEAM HOUSE
--- NOTE | 2022-04-05 19:10 | CM.ED ---
Social Work Note SW called the following inpatient psychiatric hospitals to inquire about their COVID policies. [facility]: They do not take COVID positive patients. [facility] Pt has to be out of isolation before they will look at referral and then it just depends on the patient's symptoms and the physician treating the patient. [facility]: Do not take COVID positive patients, they will look at referral that is 14 days after a negative COVID test. [facility]: Pt has to be symptoms free for 5-7 days before they will consider a referral. [facility]: They do not accept COVID+ patients. [facility] [place]: They will consider a referral that is 5 days out from COVID positive test and pt has no symptoms. The test also has to be administered in the Emergency Room. They will not consider any at home tests. [facility]: Will not take any COVID positive patients [facility]: SW was on hold for 12 minutes, unable to speak to anyone in intake. [facility]: Will consider a patient that is 10 days out from positive COVID test and they will need to know if pt is Symptomatic or Asymptomatic. [facility]: Will consider a patient that is 7 days out from positive COVID test and pt will need to be fever free and symptoms free for 24 hours. [facility]: Will look at a referral that is 10 days post positive COVID test and will need a negative COVID test. [facility]: Will look at a referral that is 10 days post postive COVID test and will need a negative COVID test. SW to continue to call inpatient psych hospitals to determine COVID positive policy. Janina Silveira FREELANCE DISPLAYER, MEMBER OF TECHNICAL STAFF
--- NOTE | 2022-04-05 20:21 | CM.ED ---
Social Work Note SW continued to call inpatient psychiatric hospitals: [facility]: message left to call SW back regarding COVID positive policy. [facility]: Will consider a referral that is 5 days post positive COVID test. [facility]: They have a west unit that is set up just for COVID positive patients and is agreeable to reviewing referral. Fax number [phone]. KRISTEL faxed referral to [facility]. Janina Silveira PRODUCT MANAGER, TELEHEALTH NURSE
--- NOTE | 2022-04-05 22:59 | CM.ED ---
Social Work Note SW placed a call to [facility] and spoke with [facility] staff. Staff is going to review referral. SW asked [facility] staff to call ED nurse station when they have an answer. SW was updated that they do think they have space on their COVID unit. KRISTEL placed a call to [facility] and spoke with Kaylee and provided handoff. SW faxed referral to [facility]. Plan: [facility] to review referral and call ED main desk with determination. Janina Silveira ENGINEER STEAM, BILLPOSTING SUPERVISOR
[2022-04-06] VITALS (7 sets, daily range): BP systolic 97–112; BP diastolic 62–71; PULSE 69–83; RESP 14–16; TEMP 36.4; O2SAT 95–98
--- NOTE | 2022-04-06 09:20 | NURSING ---
CALLED [facility]. TALKED TO KATIE. COMES IN AT 0930
--- NOTE | 2022-04-06 10:51 | NURSING ---
FAXED PINK SLIP TO [facility]
--- NOTE | 2022-04-06 12:12 | ED.RN ---
THIS RN LEFT A VOICEMAIL WITH GÓMEZ NOLAN AT [facility] TO VERIFY IF SHE RECEIVED OUR PINK SLIP THAT WAS FAXED. RETURN PHONE NUMBER LEFT.
--- NOTE | 2022-04-06 14:23 | NURSING ---
[facility], CALLED. ETA IS ANOTHER 90 MIN
--- NOTE | 2022-04-06 16:02 | NURSING ---
[facility] ETA IS 17 MIN
== END 2022-04-06 16:38 ==
PROVIDERS: Emergency Provider Emergency Medicine; Visit Provider Emergency Medicine
DX: U07.1 COVID-19 (principal); F20.9 Schizophrenia, unspecified; F17.210 Nicotine dependence, cigarettes, uncomplicated
CPT/HCPCS: 36415; 80048; 80307; 82077; 85025; 87811; 99285

== ENCOUNTER 2022-05-08 08:43 | Emergency (ER) | payer MEDICAID, SELFPAY ==
[2022-05-08 08:45] VITALS: BP 131/97; PULSE 73; RESP 13; TEMP 36.6; O2SAT 96; BMI 29.7
--- NOTE | 2022-05-08 09:02 | EX.ED.DYSGE1 ---
HPI History of Present Illness Chief Complaint: Chest Pain Informant: patient Onset/Context/Timing Onset: Today Narrative Narrative: 31-year-old male history of schizophrenia or schizoaffective disorder. Was noticed by the police sitting by the road. He was not in the road. He stopped to check him out and sent him in for evaluation. About 4 weeks ago he was admitted to a psychiatric hospital in [place] for mental health issues. He denies being suicidal or homicidal. He does have a home I believe he lives with his father. Patient's been evaluated further atypical noncardiac chest pain in the past. He denies any recent illness. States he ate breakfast this morning. He is comfortable being discharged home. He said he would not be here unless the please officer stop to question him. Prior similar symptoms: Yes Recent Illness/Hospitalization: Yes PFSH PFSH Medical History Schizo-affective psychosis Schizoaffective disorder Home Medications melatonin 3 mg capsule 3 mg PO DAILY 05/08/22 [History Last Taken Unknown] olanzapine 10 mg disintegrating tablet 10 mg PO DAILY 05/08/22 [History Last Taken Unknown] risperidone 120 mg abdominal subcutaneous ext release susp syringe (Perseris) 120 mg subcut QMONTH 05/08/22 [History Last Taken Unknown] valproic acid (as sodium salt) 250 mg/5 mL oral solution 250 mg PO BID 05/08/22 [History Last Taken Unknown] Allergy/AdvReac Type Severity Reaction Status Date / Time haloperidol [From Haldol] Allergy Other Verified 05/08/22 08:52 peanut Allergy Food Verified 05/08/22 08:52 Allergy sulfamethoxazole Allergy Itching Verified 05/08/22 08:52 [From Bactrim] trimethoprim [From Bactrim] Allergy Itching Verified 05/08/22 08:52 Surgical History History of toe surgery Social History household members: family Smoking Status: Current every day smoker tobacco type: cigarettes ROS ROS ED ROS Narrative Denies recent illness. Review of Systems ROS Unobtainable: Denies due to encephalopathy Constitutional Constitutional ED: Denies chills Eyes Eyes: Denies blurry vision ENT ENT ED: Denies ear pain Cardiovascular Cardiovascular: Reports chest pain Respiratory/Chest Respiratory/Chest: Denies cough Gastrointestinal Gastrointestinal: Denies abdominal pain Genitourinary Genitourinary ED: Denies dysuria Musculoskeletal Musculoskeletal: Denies arthralgias Integumentary Denies abscess Neurologic Neurologic: Denies headache(s) Psychiatric Psychiatric: Denies anxiety Endocrine Endocrinology: Denies cold intolerance Hematologic/Lymphatic Hematologic/Lymphatic: Reports none Allergic/Immunologic Allergic/Immunologic ED: Denies mouth swelling or tongue swelling EXAM Physical Exam Narrative Exam Narrative: 31-year-old male no acute distress. Vital signs stable afebrile. Pulse ox 96% on room air no hypoxia. He has a normal sinus rhythm on the monitor. H EENT exam unremarkable atraumatic. Moist Riis membranes. Neck nontender. Lungs are clear. Heart regular rhythm rate about 75 no murmur. Chest wall nontender. Abdomen soft nontender. Moving all 4 extremities. Nontender no edema. Strong radial pulses. Neurologically is awake and alert with no focal motor deficits. He does answer questions and follow commands. He makes eye contact. He does need his nails cut both of the hands and the feet. Const Vital Signs: 05/08/22 08:45 05/08/22 08:50 Temperature 97.9 F Temperature Source Temporal Pulse Rate 73 Respiratory Rate 13 Respiratory Effort Normal Blood Pressure 131/97 H Blood Pressure Mean 108 Pulse Ox 96 Oxygen Delivery Method Room Air Positive well nourished, well developed and unkempt; Negative for obese, cachectic or contractures General Appearance ED: unkempt, well developed and NAD; Negative for cachectic, contractures, cyanotic or diaphoretic Nutritional Appearance: Negative for cachectic or obese HEENT Reports moist mucous membranes; Denies dry mucous membranes Negative for trauma or tenderness Mouth ED: No dry mucous membranes Mouth: No dry mucous membranes Eyes PERRL and EOMs intact bilaterally General Eye ED: Negative for pale conjunctiva or scleral icterus Neck no lymphadenopathy, supple and no JVD General: Negative for tenderness Lymph Lymphatic: Negative for other Chest Wall inspection of chest normal and palpation of chest normal Chest: Negative for other Resp normal respiratory effort and clear to auscultation bilaterally Effort and Inspection: Negative for retractions Auscultation: Negative for rales, rhonchi or wheezes Cardio regular rate, regular rhythm, S1 normal heart sound, S2 normal heart sound and no murmurs Palpation: Negative for palpable S3 Rate: Negative for bradycardia Rhythm: Negative for abnormal rhythm GI normal to inspection, nondistended, normoactive bowel sounds, non-tender, non-distended and no masses Palpation: soft; Negative for tender Bladder / Kidney Exam: No other Back/Spine no CVA tenderness General Back: Negative for CVA tenderness Cervical Spine: Negative for cervical spine tenderness Thoracic Spine / Upper Back: Negative for thoracic spinal tenderness Lumbar Spine / Lower Back: Negative for lumbar spinal tenderness Extremity normal to inspection General Extremety ED: Negative for edema or tenderness General Extremity: Negative for edema Neuro oriented x3 and CN's II-XII intact bilaterally Sensorium / Orientation: alert; Negative for orientation impaired, lethargic or stuporous Motor Exam: strength 5/5 throughout Psych mental status grossly normal Appearance: unkempt Attitude: No agitated Mood & Affect: Negative for depressed, anxious or tearful Skin no rashes or lesions noted and no wounds General Skin Exam: elasticity normal Lesions: No lesion noted Rashes: No rashes noted Trauma: Negative for abrasion Wounds: Negative for wounds noted MDM MDM MDM Narrative Medical decision making narrative: 31-year-old male functioning with underlying mental health disorder. He has no acute exacerbation today. His exam is normal. He ate breakfast. He has a place to go on lives at home with his father. I find no reason to do a mental health evaluation on him currently he had a recent admission. He is not suicidal. His exam otherwise is benign. He will be discharged to home. Discharge Plan Triage Chief Complaint: Chest Pain ED Provider: Tk Smith Dx/Rx/DC Orders Clinical Impression: Schizophrenia Instructions: Treating Schizophrenia Prescriptions: No Action olanzapine 10 mg Tablet,Disintegrating 10 mg PO DAILY Perseris 120 mg Suspension,Extended Rel Syring 120 mg SUBCUT QMONTH valproic acid (as sodium salt) 250 mg/5 mL Solution 250 mg PO BID melatonin 3 mg Capsule 3 mg PO DAILY Primary Care Provider: Care Physician,No Primary Referrals: Counseling,Center [Group of Physicians] - As soon as possible Care Physician,No Primary [Primary Care Provider] - Activity Restrictions/Additional Instructions: Follow-up with the counseling center on Monday or if you have a private psychologist or psychiatrist. Disposition Disposition: Home, Self Care
[2022-05-08 09:11] VITALS: BP 124/88; PULSE 88; RESP 16; O2SAT 98
--- NOTE | 2022-05-08 16:36 | ED.RN ---
PT CAME IN BY EMS AGAIN BY EMS STATING HE DOESN'T WANT TO . PT STATES HIS ROOMMATE DOESN'T WANT HIM AT HOME. PROVIDED OPTIONS FOR HIM TO SEEK [facility] AND EXPLAINED HE WAS SEEN AND MEDICALLY CLEARED EARLIER. ALSO EXPLAINED THAT WE ARE NOT A [facility].OFFERED FOOD AND DRINK BUT PT REFUSED. [facility] IS PROVIDING A RIDE TO THE [place].
== END 2022-05-08 09:14 | disposition home or self-care (01) ==
PROVIDERS: Emergency Provider Emergency Medicine; Visit Provider Emergency Medicine
DX: F20.9 Schizophrenia, unspecified (principal); F17.210 Nicotine dependence, cigarettes, uncomplicated
CPT/HCPCS: 99284

== ENCOUNTER 2022-05-10 04:05 | Emergency (ER) | payer MEDICAID, SELFPAY ==
[2022-05-10 04:05] VITALS: BP 126/87; PULSE 74; RESP 16; TEMP 36.4; O2SAT 97; BMI 27.6
--- NOTE | 2022-05-10 04:19 | EDS_ITS ---
HPI History of Present Illness Chief Complaint: Mental Health Narrative Narrative: Patient is a 31-year-old male with past medical history of schizophrenia who was brought in to the hospital by police. Police reported that they were driving on the street this morning on a normal patrol and found the patient standing/sitting on the side of the road. He was not in the road but merely off to the side. When police asked if he was okay he told them no and requested evaluation at the hospital. The patient denies any homicidal or suicidal ideation. He states he has basically been taking his medication. He reports that he was outside this morning because Dennis Du has hacked his mind. Despite this comment patient denies any auditory or visual hallucinations [facility] Medical History Schizo-affective psychosis Schizoaffective disorder Home Medications melatonin 3 mg capsule 3 mg PO DAILY 05/08/22 [History Last Taken Unknown] olanzapine 10 mg disintegrating tablet 10 mg PO DAILY 05/08/22 [History Last Taken Unknown] risperidone 120 mg abdominal subcutaneous ext release susp syringe (Perseris) 120 mg subcut QMONTH 05/08/22 [History Last Taken Unknown] valproic acid (as sodium salt) 250 mg/5 mL oral solution 250 mg PO BID 05/08/22 [History Last Taken Unknown] Allergy/AdvReac Type Severity Reaction Status Date / Time haloperidol [From Haldol] Allergy Other Verified 05/08/22 08:52 peanut Allergy Food Verified 05/08/22 08:52 Allergy sulfamethoxazole Allergy Itching Verified 05/08/22 08:52 [From Bactrim] trimethoprim [From Bactrim] Allergy Itching Verified 05/08/22 08:52 Surgical History History of toe surgery Social History household members: family Smoking Status: Current every day smoker tobacco type: cigarettes ROS ROS ED Constitutional Constitutional ED: Denies chills or fever(s) ENT ENT ED: Denies sore throat Cardiovascular Cardiovascular: Denies chest pain Respiratory/Chest Respiratory/Chest: Denies cough or dyspnea Gastrointestinal Gastrointestinal: Denies abdominal pain, diarrhea, nausea or vomiting Genitourinary Genitourinary ED: Denies dysuria Musculoskeletal Musculoskeletal: Denies myalgias Integumentary Denies rash Neurologic Neurologic: Denies headache(s) Psychiatric Psychiatric: Denies suicidal ideation or suicidal thoughts Hematologic/Lymphatic Hematologic/Lymphatic: Denies easy bleeding or easy bruising EXAM Physical Exam Const Vital Signs: 05/10/22 04:05 05/10/22 05:05 05/10/22 06:53 Temperature 97.6 F L Temperature Source Temporal Pulse Rate 74 Respiratory Rate 16 15 Blood Pressure 126/87 H Blood Pressure Mean 100 Pulse Ox 97 95 Oxygen Delivery Method Room Air Room Air Room Air Positive well nourished and well developed General Appearance ED: well developed Eyes PERRL and EOMs intact bilaterally Neck supple Neck Narrative: No meningeal signs Resp normal respiratory effort and clear to auscultation bilaterally Cardio regular rate and regular rhythm Rate: other Other Details: Radial pulses are +2-4 bilaterally are equal and symmetric GI normal to inspection, nondistended, normoactive bowel sounds, non-tender and non-distended Auscultation: normoactive bowel sounds Palpation: soft Extremity normal to inspection Neuro oriented x3 and CN's II-XII intact bilaterally Sensorium / Orientation: alert Psych Psych Narrative: Patient has a flat affect without homicidal or suicidal ideation Skin no rashes or lesions noted MDM MDM MDM Narrative Medical decision making narrative: Patient presented to the ER in no acute distress with stable vitals. He is not homicidal or suicidal but does appear to be unable to care for himself. Secondary to the fact he has not been taking his medication and this is the second time is been seen in the ER for the same complaint in 2 days a basic psychiatric work-up was obtained. Laboratory studies revealed no acute findings. Patient was evaluated by crisis center and they do agree that he needs placed secondary to the fact he is not caring for himself. Therefore they will work on placement. Patient has remained hemodynamically stable for his entire ER stay. He has not required chemical or physical sedation. He is medically cleared for placement/transfer to a psychiatric facility. Lab Data Attestation: I reviewed the patient's lab results. Labs: Laboratory Results - last 24 hr 05/10/22 05/10/22 05/10/22 04:30 04:30 04:30 WBC 8.8 RBC 5.08 Hgb 14.2 Hct 42.7 MCV 84.1 MCH 28.0 MCHC 33.3 RDW Std Deviation 43.4 RDW Coeff of Javy 14.1 Plt Count 498 H MPV 8.8 Immature Gran % (Auto) 0.300 Neut % (Auto) 54.6 Lymph % (Auto) 33.3 [place] % (Auto) 7.6 Eos % (Auto) 3.3 Baso % (Auto) 0.9 Absolute Neuts (auto) 4.8 Absolute Lymphs (auto) 2.94 Nucleated RBC % 0 Sodium 140 Potassium 3.6 Chloride 106 Carbon Dioxide 27.0 Anion Gap 7 BUN 10 Creatinine 0.90 Estim Creat Clear Calc 100.49 Est GFR (MDRD) Af Amer 126 Est GFR (MDRD) Non-Af 104 BUN/Creatinine Ratio 11.1 Glucose 100 Calcium 8.9 Salicylates < 1.7 L Urine Opiates Screen Urine Methadone Screen Acetaminophen < 2.0 L Ur Barbiturates Screen Ur Phencyclidine Scrn Ur Amphetamines Screen MDMA (Ecstasy) Screen U Benzodiazepines Scrn Urine Cocaine Screen U Cannabinoids Screen Ur Drug Screen Comment Ethyl Alcohol < 3.0 05/10/22 04:33 WBC RBC Hgb Hct MCV MCH MCHC RDW Std Deviation RDW Coeff of Javy Plt Count MPV Immature Gran % (Auto) Neut % (Auto) Lymph % (Auto) [place] % (Auto) Eos % (Auto) Baso % (Auto) Absolute Neuts (auto) Absolute Lymphs (auto) Nucleated RBC % Sodium Potassium Chloride Carbon Dioxide Anion Gap BUN Creatinine Estim Creat Clear Calc Est GFR (MDRD) Af Amer Est GFR (MDRD) Non-Af BUN/Creatinine Ratio Glucose Calcium Salicylates Urine Opiates Screen NEGATIVE Urine Methadone Screen NEGATIVE Acetaminophen Ur Barbiturates Screen NEGATIVE Ur Phencyclidine Scrn NEGATIVE Ur Amphetamines Screen NEGATIVE MDMA (Ecstasy) Screen NEGATIVE U Benzodiazepines Scrn NEGATIVE Urine Cocaine Screen NEGATIVE U Cannabinoids Screen NEGATIVE Ur Drug Screen Comment Ethyl Alcohol Discharge Plan Triage Chief Complaint: Mental Health ED Provider: Paco Urbina Dx/Rx/DC Orders Clinical Impression: Schizophrenia, Noncompliance with medications Prescriptions: No Action olanzapine 10 mg Tablet,Disintegrating 10 mg PO DAILY Perseris 120 mg Suspension,Extended Rel Syring 120 mg SUBCUT QMONTH valproic acid (as sodium salt) 250 mg/5 mL Solution 250 mg PO BID melatonin 3 mg Capsule 3 mg PO DAILY Primary Care Provider: Care Physician,No Primary Referrals: Care Physician,No Primary [Primary Care Provider] - Disposition Disposition: Psychiatric Hospital or Unit
[2022-05-10 04:43] LABS: Absolute Lymphocyte Count 2.94 X10^3/uL (0.83-4.51); Absolute Neutrophil Count 4.8 X10^3/uL (2.0-7.7); Basophil# 0.08 X10^3/uL; Basophil% 0.9 % (0-1); Eosinophil# 0.29 X10^3/uL; Eosinophils% 3.3 % (0-5); Hematocrit 42.7 % (40-54); Hemoglobin 14.2 g/dL (13.0-16.5); Lymphocyte # 2.94 X10^3/ul (0.83-4.51); Lymphocyte % 33.3 % (19-41); Mean Corp Hgb Conc 33.3 g/dL (32-36); Mean Corpuscular Volume 84.1 fL (80-94); Mean Platelet Vol. 8.8 fl (6.2-12.0); Monocyte# 0.67 X10^3/uL; Monocyte% 7.6 % (0-10); NRBC Flagged by Analyzer 0 % (0-5); Neutrophil # 4.83 X10^3/uL (2.7-7.7); Neutrophil % 54.6 % (47-70); Platelet Count 498 K/mm3 (150-450); RBC Distribution Width CV 14.1 % (11.6-14.6); RBC Distribution Width SD 43.4 fl (35.1-43.9); Red Blood Count 5.08 M/mm3 (4.6-6.2); White Blood Count 8.8 K/mm3 (4.4-11.0)
[2022-05-10 04:55] LABS: Anion Gap 7 (5-15); BUN 10 mg/dL (7-18); BUN/Creat Ratio 11.1 RATIO (10-20); Calcium,Total 8.9 mg/dL (8.5-10.1); Chloride 106 mmol/L (98-107); EST Glomerular Filtration Rate 104 mL/min (>60); Est Glom Filt Rate - Afr Amer 126 mL/min (>60); Estimated Creatinine Clearance 100.49 ml/min; Glucose 100 mg/dL (74-106); Potassium 3.6 mmol/L (3.5-5.1); Sodium Level 140 mmol/L (136-145)
[2022-05-10 04:57] LABS: Amphetamine Urine VISTA NEGATIVE (<1000 ng/mL); Barbiturate Urine VISTA NEGATIVE (< 200 ng/mL); Benzodiazepine Urine VISTA NEGATIVE (< 200 ng/mL); Cocaine Urine VISTA NEGATIVE (< 300 ng/mL); Ecstacy Urine VISTA NEGATIVE (< 500 ng/mL); Methadone Urine VISTA NEGATIVE (< 300 ng/mL); PCP Urine VISTA NEGATIVE (< 25 ng/mL); THC Urine VISTA NEGATIVE (< 50 ng/mL); Vista UDS pH Range 5
[2022-05-10 05:05] VITALS: RESP 15
[2022-05-10 05:15] LABS: Acetaminophen (Tylenol) Level < 2.0 ug/mL (10.0-30.0); Alcohol, Blood (Medical)-Serum < 3.0 mg/dL; Salicylate < 1.7 mg/dL (2.8-20.0)
--- NOTE | 2022-05-10 05:37 | NURSING ---
FAXED CHART TO [facility] [id number]
--- NOTE | 2022-05-10 06:13 | NURSING ---
[facility] CALLED TO TALK WITH PATIENT [id number]
[2022-05-10 06:53] VITALS: O2SAT 95
[2022-05-10 08:47] VITALS: BP 126/72; PULSE 70; RESP 16; O2SAT 99
--- NOTE | 2022-05-10 13:04 | EKG12_ITS ---
Test Reason : mental health Blood Pressure : / mmHG Vent. Rate : 079 BPM Atrial Rate : 079 BPM P-R Int : 136 ms QRS Dur : 090 ms QT Int : 370 ms P-R-T Axes : 061 031 033 degrees QTc Int : 424 ms Normal sinus rhythm Normal ECG Confirmed by MONICA VIGIL, LADONNA ([id number]), graphic editor GASTON CHAMBERS ([id number]) on 05/12/2022 8:04:33 AM Referred By: Ciara Confirmed By:LADONNA ANDERSON MD
[2022-05-10 13:58] VITALS: BP 122/82; PULSE 78; RESP 16; O2SAT 97
== END 2022-05-10 16:19 ==
PROVIDERS: Emergency Provider Emergency Medicine; Visit Provider Emergency Medicine
DX: F20.9 Schizophrenia, unspecified (principal); F17.210 Nicotine dependence, cigarettes, uncomplicated; Z91.14 Patient's other noncompliance with medication regimen; Z79.899 Other long term (current) drug therapy
CPT/HCPCS: 80048; 80307; 80329; 82077; 85025; 87811; 93005; 99284; A4216; G0480

== ENCOUNTER 2023-06-06 14:42 | Emergency (ER) | payer MEDICAID, SELFPAY ==
[2023-06-06 14:43] VITALS: BP 132/90; PULSE 97; RESP 18; TEMP 36.1; O2SAT 99
--- NOTE | 2023-06-06 15:20 | EX.ED.VIS.PS ---
HPI HPI - Psych History of Present Illness Chief Complaint: Mental Health [facility] Medical History Schizo-affective psychosis Schizoaffective disorder Home Medications melatonin 3 mg capsule 3 mg PO DAILY 05/08/22 [History Last Taken Unknown] olanzapine 10 mg disintegrating tablet 10 mg PO DAILY 05/08/22 [History Last Taken Unknown] risperidone 120 mg abdominal subcutaneous ext release susp syringe (Perseris) 120 mg subcut QMONTH 05/08/22 [History Last Taken Unknown] valproic acid (as sodium salt) 250 mg/5 mL oral solution 250 mg PO BID 05/08/22 [History Last Taken Unknown] Allergy/AdvReac Type Severity Reaction Status Date / Time haloperidol [From Haldol] Allergy Other Verified 06/06/23 14:44 peanut Allergy Food Verified 06/06/23 14:44 Allergy sulfamethoxazole Allergy Itching Verified 06/06/23 14:44 [From Bactrim] trimethoprim [From Bactrim] Allergy Itching Verified 06/06/23 14:44 Surgical History History of toe surgery Social History household members: family Smoking Status: Former smoker EXAM Physical Exam Const Vital Signs: 06/06/23 14:43 Temperature 97 F L Temperature Source Temporal Pulse Rate 97 Respiratory Rate 18 Blood Pressure 132/90 H Blood Pressure Mean 104 Pulse Ox 99 Oxygen Delivery Method Room Air MDM MDM MDM Narrative Medical decision making narrative: HISTORY OF PRESENT ILLNESS: 32-year-old male presents with being found in the middle the street by police. He states he has not been taking his medicine. States he only takes Prolixin Per police patient endorsed that he killed himself. He then makes nonsensical statements such asI own butterflies REVIEW OF SYSTEMS: Pertinent positives: No positive view of systems Pertinent negatives: Patient denies SI, HI, auditory visual hallucinations, headache, visual changes, fever, cough, neck symptoms, abdominal pain, chest pain, focal weakness PHYSICAL EXAM: Nursing triage notes reviewed, Vital signs reviewed Constitutional: please see mdm HENT: MMM Eyes: Pupils equal round and reactive to light, Extraocular muscles intact Neck: No stridor, no JVD, full neck ROM Lungs: Clear to auscultation, No wheezing or rales. No increased work of breathing, no conversational dyspnea, no accessory muscle use, no nasal flaring. No respiratory distress noted Heart: Regular rate and rhythm, No murmurs, No rubs and No gallops, 2+ distal pulses (radial, femoral, posterior tibial) in all extremities Abdomen: Soft, there is no tenderness, rigidity, rebound or guarding, no obvious peritoneal signs, no palpable pulsatile abdominal masses, no auscultated abdominal bruit : No CVAT Extremities: No edema Neuro: No focal neurological deficits, cranial nerves II through XII intact, 5/5 strength in all extremities. Intact sensation to light touch in all extremities, 2+ reflexes bilateral patella tendons. Normal gait. No ataxia. Skin: No rash or lesions noted Psych: Disheveled, poor eye contact, appears to be responding to internal stimuli, calm MEDICAL DECISION MAKING: Chief Complaint: Psychiatric encounter External records reviewed: Frequent ED utilizer, frequent evaluations for psychiatric issues. Last ED visit was 1 month ago patient was placed secondary to not taking care of himself Factors affecting care: n schizophrenia Social determinants of health: History mental health disorder History obtained from others: Police Consults: Behavioral health certified social workers in health care [facility] Narrative: Patient was hemodynamically stable, afebrile, nontoxic-appearing. Exam without focal cardiopulmonary, neurologic or infectious signs. I considered the following differential diagnosis: Decompensated schizophrenia Medical clearance labs were obtained. Patient was treated with oral olanzapine as well as valproic acid. CBC without leukocytosis, severe anemia, no thrombocytopenia. BMP without evidence of significant electrolyte abnormalities, no anion gap, no acute kidney injury. Urine tox screen negative Serum alcohol negative COVID-19 negative Patient is medically cleared and appropriate for admission for further psychiatric evaluation The patient and/or family, caregivers express understanding. The patient and/or family, caregivers agrees with the plan. Shared decision making: I will have a discussion with the patient and or visitors regarding risk/benefits of further testing or admission. They will be made aware of of the risk/benefits inherent in this decision they will be given the opportunity to voice understanding. Total critical care time today provided was at least 0 minutes. This excludes separately billable procedures. Critical care time (if documented) is secondary to the patient having high probability of clinically significant/life threatening deterioration in the patient's condition which required my urgent intervention. Impression: 1. Decompensated schizophrenia 2. Medication noncompliance 3. History of schizophrenia Dispo: Patient to be admitted given decompensated schizophrenia and lack of support as well as concern for harm to himself given report by police. Patient is awaiting placement via behavioral health certified social workers in health care Lab Data Labs: Laboratory Results - last 24 hr 06/06/23 06/06/23 15:45 18:20 WBC 9.7 RBC 5.34 Hgb 15.3 Hct 45.1 MCV 84.5 MCH 28.7 MCHC 33.9 RDW Std Deviation 40.8 RDW Coeff of Javy 13.4 Plt Count 700 H MPV 9.6 Immature Gran % (Auto) 0.400 Neut % (Auto) 60.9 Lymph % (Auto) 26.7 [place] % (Auto) 7.7 Eos % (Auto) 3.0 Baso % (Auto) 1.3 H Absolute Neuts (auto) 5.9 Absolute Lymphs (auto) 2.58 Nucleated RBC % 0 Sodium 139 Potassium 4.2 Chloride 106 Carbon Dioxide 28.0 Anion Gap 5 BUN 9 Creatinine 0.91 Estim Creat Clear Calc 88.29 Est GFR (MDRD) Af Amer 124 Est GFR (MDRD) Non-Af 103 BUN/Creatinine Ratio 9.9 L Glucose 106 Calcium 9.2 Urine Opiates Screen NEGATIVE Urine Methadone Screen NEGATIVE Ur Barbiturates Screen NEGATIVE Ur Phencyclidine Scrn NEGATIVE Ur Amphetamines Screen NEGATIVE MDMA (Ecstasy) Screen NEGATIVE U Benzodiazepines Scrn NEGATIVE Urine Cocaine Screen NEGATIVE U Cannabinoids Screen NEGATIVE Ur Drug Screen Comment Ethyl Alcohol < 3.0 Discharge Plan Triage Chief Complaint: Mental Health ED Provider: Alvino Infante Dx/Rx/DC Orders Prescriptions: No Action olanzapine 10 mg Tablet,Disintegrating 10 mg PO DAILY Perseris 120 mg Suspension,Extended Rel Syring 120 mg SUBCUT QMONTH valproic acid (as sodium salt) 250 mg/5 mL Solution 250 mg PO BID melatonin 3 mg Capsule 3 mg PO DAILY Primary Care Provider: Care Physician,No Primary Referrals: Care Physician,No Primary [Primary Care Provider] -
[2023-06-06 16:04] LABS: Absolute Lymphocyte Count 2.58 X10^3/uL (0.83-4.51); Absolute Neutrophil Count 5.9 X10^3/uL (2.0-7.7); Basophil# 0.13 X10^3/uL; Basophil% 1.3 % (0-1); Eosinophil# 0.29 X10^3/uL; Hematocrit 45.1 % (40-54); Hemoglobin 15.3 g/dL (13.0-16.5); Lymphocyte # 2.58 X10^3/ul (0.83-4.51); Lymphocyte % 26.7 % (19-41); Mean Corp Hgb Conc 33.9 g/dL (32-36); Mean Corpuscular Hgb 28.7 pg (27.0-32.0); Mean Corpuscular Volume 84.5 fL (80-94); Mean Platelet Vol. 9.6 fl (6.2-12.0); Monocyte# 0.74 X10^3/uL; Monocyte% 7.7 % (0-10); NRBC Flagged by Analyzer 0 % (0-5); Neutrophil # 5.89 X10^3/uL (2.7-7.7); Neutrophil % 60.9 % (47-70); Platelet Count 700 K/mm3 (150-450); RBC Distribution Width CV 13.4 % (11.6-14.6); RBC Distribution Width SD 40.8 fl (35.1-43.9); Red Blood Count 5.34 M/mm3 (4.6-6.2); White Blood Count 9.7 K/mm3 (4.4-11.0)
[2023-06-06] MEDS: Divalproex Sodium 250 MG Tablet PO (16:09)
[2023-06-06] MEDS: OLANZapine 5 MG/TAB TAB.RAPDIS 10 MG PO (16:09)
[2023-06-06 16:16] LABS: Anion Gap 5 (5-15); BUN 9 mg/dL (7-18); BUN/Creat Ratio 9.9 RATIO (10-20); Calcium,Total 9.2 mg/dL (8.5-10.1); Chloride 106 mmol/L (98-107); Creatinine, Serum 0.91 mg/dL (0.70-1.30); EST Glomerular Filtration Rate 103 mL/min (>60); Est Glom Filt Rate - Afr Amer 124 mL/min (>60); Estimated Creatinine Clearance 88.29 ml/min; Glucose 106 mg/dL (74-106); Potassium 4.2 mmol/L (3.5-5.1); Sodium Level 139 mmol/L (136-145)
[2023-06-06 16:37] LABS: Alcohol, Blood (Medical)-Serum < 3.0 mg/dL
[2023-06-06 18:49] LABS: Amphetamine Urine VISTA NEGATIVE (<1000 ng/mL); Barbiturate Urine VISTA NEGATIVE (< 200 ng/mL); Benzodiazepine Urine VISTA NEGATIVE (< 200 ng/mL); Cocaine Urine VISTA NEGATIVE (< 300 ng/mL); Ecstacy Urine VISTA NEGATIVE (< 500 ng/mL); Methadone Urine VISTA NEGATIVE (< 300 ng/mL); PCP Urine VISTA NEGATIVE (< 25 ng/mL); THC Urine VISTA NEGATIVE (< 50 ng/mL); Vista UDS pH Range 6
--- NOTE | 2023-06-06 19:02 | CM.ED ---
Social Work Psychiatric Assessment Reason for consult: Mental Health Informant(s): Patient, medical record Chief Complaint: Mental health - Police pink slipped due to bizarre behavior Marital/Social History/Living Situation: Patient is a 32-year-old single male. Pt resides with his father Jose Elias Du but reports to that his father is Jose Elias Sanchez. History: None Education and Employment History: High school diploma, unemployed Mental Health Treatment/History: Patient has a significant history of psych hospitalizations and medication noncompliance. Pt has a history of schizophrenia spectrum disorders. Pt denies any mental health concerns, services or diagnoses. Pt is a poor historian. Substance Abuse Hx: Pt denies. Abuse Issues/Trauma HX: Pt denies. Risk to Self/Others: Pt denies SI/HI. History of SI/HI is unclear. Triggers/Stressors/Risk factors: Pt is medication noncompliant Coping Skills: None Support/Resources: Father Jose Elias Du Mental Status Exam: ?Pt is oriented to self only with poor memory. Appearance/General Behavior/Mood/Affect: Pt is pacing the room and occasionally stops to stare at the floor/his foot. Pt is disheveled and covered in paint. Pt has a flat mood and affect. ? Communication Pattern/Thought process: Pt does not communicate effectively. Pt answers no to most questions, including questions that should be yes. Pt appears to be responding to internal stimuli. General Intellectual Functioning:?? Average Judgment/Insight: Pt presents with impaired judgment and insight Assessment: Patient brought to [facility] ED by police and pink-slipped due to concerning behaviors. Pt was found in the street and reported he had killed himself. Pt is a poor historian and provides very little information, mostly responding with ?no? to most questions. Pt is pacing in room and occasionally stops to stare at the floor and his feet but provides no response when asked if he sees something. Pt is covered in paint, pt has black, blue and green paint covering his arms and on his face. When asked about the paint, patient provided no details and answered no when asked if he has been painting. Pt denies any mental health history or substance abuse. Pt?s tox screen is negative. Pt denies psych hospitalizations, medications, or diagnoses. Pt has a long history of psychiatric care with local crisis agency and ED. Pt is typically medication non-compliant. Pt?s baseline consists of frequent pacing and limited responses. SW called patient?s father to discuss care. Pt?s father reports he does better when he is on medications. Pt reportedly has no medications at home and is unlikely to willingly take medications at home without being stabilized first. Pt?s father reports patient has had declining mental status over the past few months. Father reports he tried to take pt to a psychiatry appointment but patient paced and left the building without establishing care. Father reports he believes it is in patient?s best interest to go to a psych facility. Patient would benefit from inpatient psychiatric placement for stabilization due to decompensation, medication non-compliance, and AVH. ED physician is in agreement with psychiatric placement. Plan:. Pt to be referred for psychiatric hospitalization. Sheryl Jeffrey MSW, INHALATION THERAPY AIDE
--- NOTE | 2023-06-06 20:06 | CM.ED ---
Addendum entered by Sheryl Jeffrey 06/06/23 22:03: SW notified patient's father via voicemail of patient's admission to [facility] and approximate transport time. SW left number if any further questions or concerns arise. Sheryl MURRAY, SHANTELL Original Note: Social Work Pt accepted to [facility] by Dr. Narayanan to the [facility]. Requesting pink slip made out to [facility]. Feed Weigher given information to arrange transport. Sheryl MURRAY, SHANTELL
[2023-06-06 20:38] VITALS: BP 147/85; PULSE 78; RESP 16; O2SAT 99
[2023-06-06 20:52] VITALS: BP 147/85; PULSE 78; RESP 16; TEMP 36.1; O2SAT 99
== END 2023-06-06 22:36 ==
PROVIDERS: Emergency Provider Emergency Medicine; Visit Provider Emergency Medicine
DX: F20.9 Schizophrenia, unspecified (principal); Z87.891 Personal history of nicotine dependence; Z20.822 Contact with and (suspected) exposure to COVID-19; Z91.148 Patient's other noncompliance with medication regimen for other reason
CPT/HCPCS: 80048; 80307; 82077; 85025; 87811; 99284

== ENCOUNTER 2023-07-16 11:44 | Emergency (ER) | payer MEDICAID, SELFPAY ==
[2023-07-16 11:46] VITALS: BP 158/101; PULSE 113; RESP 16; TEMP 36.4; O2SAT 95; BMI 27.9
--- NOTE | 2023-07-16 11:54 | EKG12_ITS ---
Test Reason : ANXIETY Blood Pressure : / mmHG Vent. Rate : 123 BPM Atrial Rate : 102 BPM P-R Int : 112 ms QRS Dur : 088 ms QT Int : 366 ms P-R-T Axes : 003 007 025 degrees QTc Int : [address] Junctional [address] depression, probably abnormal Abnormal ECG Confirmed by MOHSEN VIGIL, CRISTINO ([id number]), sound editor DOT MOLINA ([id number]) on 07/24/2023 7:04:26 AM Referred By: Confirmed By:RHONDA CONNOLLY MD
--- NOTE | 2023-07-16 11:57 | EX.ED.DYSGE1 ---
HPI <BRITTANY Swain - Last Filed: 07/16/23 20:33> History of Present Illness Chief Complaint: Anxiety Narrative Narrative: Patient is a 32-year-old male with history of schizophrenia, schizoaffective disorder. Patient has multiple visits for auditory hallucination, schizophrenia, chest pain. Patient is known to not be compliant with his medications. Patient presents today with heart pain. Patient states that his heart is getting smaller and he is dying. Patient denies any drug use. Patient states that he does take his medications which is Haldol. However the patient chart says he is allergic to Haldol. Patient is difficult to speak to, patient does not answer some questions and some questions not answered appropriately. Patient denies any suicidal homicidal ideation. Patient states 4 weeks ago he was admitted to a psychiatric facility. Last visit here was in May 2023. In this visit in May, he was admitted to a psychiatric facility. At that time, patient was not on his medications, and was unable to care for himself. PFS <BRITTANY Swain - Last Filed: 07/16/23 20:33> [facility] Medical History Schizo-affective psychosis Schizoaffective disorder Home Medications melatonin 3 mg capsule 3 mg PO DAILY 05/08/22 [History Last Taken Unknown] olanzapine 10 mg disintegrating tablet 10 mg PO DAILY 05/08/22 [History Last Taken Unknown] risperidone 120 mg abdominal subcutaneous ext release susp syringe (Perseris) 120 mg subcut QMONTH 05/08/22 [History Last Taken Unknown] valproic acid (as sodium salt) 250 mg/5 mL oral solution 250 mg PO BID 05/08/22 [History Last Taken Unknown] Allergy/AdvReac Type Severity Reaction Status Date / Time haloperidol [From Haldol] Allergy Other Verified 06/06/23 14:44 peanut Allergy Food Verified 06/06/23 14:44 Allergy sulfamethoxazole Allergy Itching Verified 06/06/23 14:44 [From Bactrim] trimethoprim [From Bactrim] Allergy Itching Verified 06/06/23 14:44 Surgical History History of toe surgery Social History household members: family Smoking Status: Former smoker ROS <BRITTANY Swain - Last Filed: 07/16/23 20:33> ROS ED ROS Narrative Constitutional: Negative for fever, chills, weight loss, weakness Eyes: Negative for vision loss, vision change, double vision ENT: Negative for any sore throat, ear pain, congestion Cardiovascular: Negative for any tightness, palpitations. Positive for chest pain Respiratory: Negative for any cough, sputum production, hemoptysis, dyspnea, dyspnea on exertion, orthopnea Gastrointestinal: Negative for any abdominal pain, nausea, vomiting, diarrhea, constipation, blood in stool, blood in vomit : Negative for any urinary frequency, dysuria, retention, blood in urine Muscle skeletal: Negative for any muscle joint pain, stiffness, myalgias, arthralgias, neck pain, back pain Neurological: Negative for any headache, syncope, numbness or tingling, dizziness Skin: Negative for any rashes, lumps, itching, abrasions, lacerations Psychiatric: Negative for any depression, anxiety, stress, suicidal ideation, homicidal ideation Hematologic: Negative for any easy bruising, excessive bruising, easy bleeding Allergies: Negative for any eczema, hives, rash EXAM <BRITTANY Swain - Last Filed: 07/16/23 20:33> Physical Exam Narrative Exam Narrative: Vital signs reviewed. Patient is alert and oriented, patient is in no distress. Patient constantly shakes and when you ask him to stop he is does stop shaking. Patient presents with chest pain. However patient is difficult to obtain any history from. Many of his answers do not make sense. Patient appears disheveled. HEET: Head normocephalic atraumatic, TMs clear bilaterally. Posterior pharynx is clear, moist mucous membranes. Nares clear bilaterally. Neck: Supple with no lymphadenopathy or tenderness. No signs of meningismus, negative jolt sign. Cardiac: Regular rate and rhythm no murmurs gallops or rubs, equal peripheral pulses bilaterally. Respiratory: Lungs clear to auscultation bilaterally. No chest tenderness. Abdomen: Soft, nontender, nondistended. No abdominal bruit or pulsatile masses. No hepatosplenomegaly Extremities: No peripheral edema, no signs of gross trauma or deformity. Active full range of motion of all extremities. Neuro: Cranial nerves II through XII intact, no focal neurological deficits. Skin: Clean dry and intact with no rash, purpura, petechiae, vesicles or pustules. Patient does have multiple areas of dry skin on his scalp, on his face. Backs/flank: No CVA tenderness, no midline spinal tenderness, no deformity. Psych: Normal mood and affect. No SI, HI or acute psychosis. Const Vital Signs: 07/16/23 11:46 Temperature 97.6 F L Temperature Source Oral Pulse Rate 113 H Respiratory Rate 16 Blood Pressure 158/101 H Blood Pressure Mean 120 Pulse Ox 95 Oxygen Delivery Method Room Air Positive unkempt General Appearance ED: unkempt Psych Appearance: unkempt <Dr. Shady Perdomo DO - Last Filed: 07/17/23 09:40> Physical Exam Const Vital Signs: 07/16/23 11:46 Temperature 97.6 F L Temperature Source Oral Pulse Rate 113 H Respiratory Rate 16 Blood Pressure 158/101 H Blood Pressure Mean 120 Pulse Ox 95 Oxygen Delivery Method Room Air MDM <BRITTANY Swain - Last Filed: 07/16/23 20:33> MDM Lab Data Labs: Laboratory Results - last 24 hr 07/16/23 07/16/23 12:16 12:55 WBC 10.0 RBC 5.44 Hgb 15.8 Hct 46.1 MCV 84.7 MCH 29.0 MCHC 34.3 RDW Std Deviation 40.4 RDW Coeff of Javy 13.2 Plt Count 721 H MPV 9.1 Immature Gran % (Auto) 0.400 Neut % (Auto) 70.1 H Lymph % (Auto) 19.4 [place] % (Auto) 7.3 Eos % (Auto) 1.8 Baso % (Auto) 1.0 Absolute Neuts (auto) 7.0 Absolute Lymphs (auto) 1.94 Nucleated RBC % 0 Sodium 139 Potassium 3.4 L Chloride 104 Carbon Dioxide 25.0 Anion Gap 10 BUN 7 Creatinine 1.03 Estim Creat Clear Calc 87.01 Est GFR (MDRD) Af Amer 108 Est GFR (MDRD) Non-Af 89 BUN/Creatinine Ratio 6.8 L Glucose 140 H Calcium 9.3 Troponin I High Sens 5 Valproic Acid < 3 L EKG Sinus tachycardia: Attestation: I personally reviewed and interpreted this EKG as follows: Comments: Sinus tachycardia, rate of 123, MD 212 ms, QRS duration 88 ms, no acute ST elevation, no acute infarct noted. Treatment and Re-Evaluation :: Patient is alert, patient denies any suicidal homicidal ideations. Patient presents to the emergency department for chest discomfort. Patient does have history of coming to the emergency department for chest pain, as well as not taking his medications. Patient states he is taking Haldol however according to his chart he is allergic to Haldol. Patient states he currently lives with his father. At this time, he is not posing a risk to himself or others. Patient will receive a cardiac work-up. Differential diagnosis does include ACS, there is a possibly this is all psychiatric related secondary to decompensated schizophrenia, medical noncompliance. Patient's laboratory values show a normal CBC, patient's chemistries were unremarkable, troponin was negative. A PERC acid was negative. Patient did refuse the chest x-ray. EKG was unremarkable. There is no evidence of any ACS or GA. I did speak with the patient's father secondary to the patient's odd behavior, he states that the chest pain is abnormal however over the last couple days he has been acting normal and has been taking his medications. The father did state that he will come and picker and packer the patient. I spoke with the patient, he is happy with that plan. Patient will continue to take his psychiatric medication and follow-up outpatient. He instructed return for any worsening symptoms. Patient stable for discharge. <Dr. Shady Perdomo, DO - Last Filed: 07/17/23 09:40> [facility] Lab Data Labs: Laboratory Results - last 24 hr 07/16/23 07/16/23 12:16 12:55 WBC 10.0 RBC 5.44 Hgb 15.8 Hct 46.1 MCV 84.7 MCH 29.0 MCHC 34.3 RDW Std Deviation 40.4 RDW Coeff of Javy 13.2 Plt Count 721 H MPV 9.1 Immature Gran % (Auto) 0.400 Neut % (Auto) 70.1 H Lymph % (Auto) 19.4 [place] % (Auto) 7.3 Eos % (Auto) 1.8 Baso % (Auto) 1.0 Absolute Neuts (auto) 7.0 Absolute Lymphs (auto) 1.94 Nucleated RBC % 0 Sodium 139 Potassium 3.4 L Chloride 104 Carbon Dioxide 25.0 Anion Gap 10 BUN 7 Creatinine 1.03 Estim Creat Clear Calc 87.01 Est GFR (MDRD) Af Amer 108 Est GFR (MDRD) Non-Af 89 BUN/Creatinine Ratio 6.8 L Glucose 140 H Calcium 9.3 Troponin I High Sens 5 Valproic Acid < 3 L Treatment and Re-Evaluation :: Patient is alert, patient denies any suicidal homicidal ideations. Patient presents to the emergency department for chest discomfort. Patient does have history of coming to the emergency department for chest pain, as well as not taking his medications. Patient states he is taking Haldol however according to his chart he is allergic to Haldol. Patient states he currently lives with his father. At this time, he is not posing a risk to himself or others. Patient will receive a cardiac work-up. Differential diagnosis does include ACS, there is a possibly this is all psychiatric related secondary to decompensated schizophrenia, medical noncompliance. Patient's laboratory values show a normal CBC, patient's chemistries were unremarkable, troponin was negative. A PERC acid was negative. Patient did refuse the chest x-ray. EKG was unremarkable. There is no evidence of any ACS or GA. I did speak with the patient's father secondary to the patient's odd behavior, he states that the chest pain is abnormal however over the last couple days he has been acting normal and has been taking his medications. The father did state that he will come and picker and packer the patient. I spoke with the patient, he is happy with that plan. Patient will continue to take his psychiatric medication and follow-up outpatient. He instructed return for any worsening symptoms. Patient stable for discharge. This patient was seen with a PA/WOOD WINDOW AND DOOR CRAFTSMAN Individually assessed they patient including history and physical. I have reviewed everything on the chart that is available and agree with the documentation provided by the PA/WOOD WINDOW AND DOOR CRAFTSMAN including discussion about the assessment, treatment plan, discussion, and return precautions. Patient evaluated today for chest pain. Has significant history of schizophrenia. Patient lives with his father and his cardiac work-up was normal so we discussed the case with his father who felt comfortable with the patient coming home. He did not feel his behavior was outside of his baseline normal. Patient will be discharged with his father arrives to give him a ride home Discharge Plan Triage Chief Complaint: Anxiety ED Midlevel Provider: Gideon Shoemaker ED Provider: Shady Perdomo Dx/Rx/DC Orders Clinical Impression: Schizophrenia, Chest pain Instructions: ED Chest Pain, Noncardiac Prescriptions: No Action olanzapine 10 mg Tablet,Disintegrating 10 mg PO DAILY Perseris 120 mg Suspension,Extended Rel Syring 120 mg SUBCUT QMONTH valproic acid (as sodium salt) 250 mg/5 mL Solution 250 mg PO BID melatonin 3 mg Capsule 3 mg PO DAILY Primary Care Provider: Care Physician,No Primary Referrals: Jeet Still MD [Med Staff - Medical Terminologist] - Care Physician,No Primary [Primary Care Provider] - Activity Restrictions/Additional Instructions: Please follow-up with your psychiatrist. You have a referral to a primary care physician if you do not have 1. Disposition Disposition: Home, Self Care Discharge Date/Time: 07/16/23 13:47
[2023-07-16] MEDS: 0.9% Normal Saline (1000mL) 1,000 ML 1000 ML IV (12:20)
[2023-07-16 12:30] LABS: Absolute Lymphocyte Count 1.94 X10^3/uL (0.83-4.51); Eosinophil# 0.18 X10^3/uL; Eosinophils% 1.8 % (0-5); Hematocrit 46.1 % (40-54); Hemoglobin 15.8 g/dL (13.0-16.5); Lymphocyte # 1.94 X10^3/ul (0.83-4.51); Lymphocyte % 19.4 % (19-41); Mean Corp Hgb Conc 34.3 g/dL (32-36); Mean Corpuscular Volume 84.7 fL (80-94); Mean Platelet Vol. 9.1 fl (6.2-12.0); Monocyte# 0.73 X10^3/uL; Monocyte% 7.3 % (0-10); NRBC Flagged by Analyzer 0 % (0-5); Neutrophil # 6.99 X10^3/uL (2.7-7.7); Neutrophil % 70.1 % (47-70); Platelet Count 721 K/mm3 (150-450); RBC Distribution Width CV 13.2 % (11.6-14.6); RBC Distribution Width SD 40.4 fl (35.1-43.9); Red Blood Count 5.44 M/mm3 (4.6-6.2)
[2023-07-16 12:51] LABS: Anion Gap 10 (5-15); BUN 7 mg/dL (7-18); BUN/Creat Ratio 6.8 RATIO (10-20); Calcium,Total 9.3 mg/dL (8.5-10.1); Chloride 104 mmol/L (98-107); Creatinine, Serum 1.03 mg/dL (0.70-1.30); EST Glomerular Filtration Rate 89 mL/min (>60); Est Glom Filt Rate - Afr Amer 108 mL/min (>60); Estimated Creatinine Clearance 87.01 ml/min; Glucose 140 mg/dL (74-106); Potassium 3.4 mmol/L (3.5-5.1); Sodium Level 139 mmol/L (136-145); Troponin-I HS 5 pg/mL (3.0-78.0)
[2023-07-16 13:19] LABS: Valproic Acid (Depakene) Level < 3 ug/mL (50-100)
--- NOTE | 2023-07-16 13:19 | ED.RN ---
pt pulled out his iv when he got up to go to the bathroom.
== END 2023-07-16 13:47 | disposition home or self-care (01) ==
PROVIDERS: Nurse Practitioner; Emergency Provider Student in an Organized Health Care Education/Training Program; Visit Provider Student in an Organized Health Care Education/Training Program
DX: R07.9 Chest pain, unspecified (principal); F25.9 Schizoaffective disorder, unspecified; Z87.891 Personal history of nicotine dependence; Z79.899 Other long term (current) drug therapy
CPT/HCPCS: 80048; 80164; 84484; 85025; 93005; 96360; 99285; J7030

== ENCOUNTER 2024-03-23 15:28 | Emergency (ER) | payer MEDICAID, SELFPAY ==
[2024-03-23 15:30] VITALS: BP 120/104; PULSE 112; RESP 18; TEMP 36.3; O2SAT 92; BMI 24.5
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
[2024-03-23] MEDS: 0.9% Normal Saline (1000mL) 1,000 ML 1000 ML IV (16:44)
[2024-03-23 16:46] LABS: Absolute Lymphocyte Count 2.23 X10^3/uL (0.83-4.51); Absolute Neutrophil Count 6.1 X10^3/uL (2.0-7.7); Basophil# 0.09 X10^3/uL; Basophil% 0.9 % (0-1); Eosinophil# 0.49 X10^3/uL; Hematocrit 47.4 % (40-54); Hemoglobin 16.7 g/dL (13.0-16.5); Lymphocyte # 2.23 X10^3/ul (0.83-4.51); Lymphocyte % 22.8 % (19-41); Mean Corp Hgb Conc 35.2 g/dL (32-36); Mean Corpuscular Volume 82.4 fL (80-94); Monocyte# 0.83 X10^3/uL; Monocyte% 8.5 % (0-10); NRBC Flagged by Analyzer 0 % (0-5); Neutrophil # 6.09 X10^3/uL (2.7-7.7); Neutrophil % 62.4 % (47-70); Platelet Count 736 K/mm3 (150-450); RBC Distribution Width CV 12.7 % (11.6-14.6); RBC Distribution Width SD 37.6 fl (35.1-43.9); Red Blood Count 5.75 M/mm3 (4.6-6.2); White Blood Count 9.8 K/mm3 (4.4-11.0)
[2024-03-23 16:51] LABS: Bacteria 0 SEEN /hpf (None Seen); Mucous, Urine 0 SEEN /hpf (<or=2+); Red Blood Cells-Urine 0 SEEN /hpf (0-5); Squamous Epithelial Cells - UA 0 SEEN /hpf (0-5); White Blood Cells 0 SEEN /hpf (0-5)
[2024-03-23 16:55] LABS: Color, Urine Yellow (Yellow); Glucose, Dipstick Normal (Normal); Ketone-Dipstick Negative (Negative); Leukocyte Esterase-Dipstick Negative /ul (Negative); Nitrite-Dipstick Negative (Negative); Occult Blood-Urine Negative /ul (Negative); Protein-Dipstick 15 mg/dl (Negative); Specific Gravity, Urine 1.015 (1.002-1.030); Urine Bilirubin Dipstick Negative (Negative); Urine Clarity Clear (Clear); Urine Urobilinogen 1 mg/dl (Normal)
[2024-03-23 17:02] LABS: Alcohol, Blood (Medical)-Serum < 3.0 mg/dL
[2024-03-23 17:03] LABS: Amphetamine Urine VISTA NEGATIVE (<1000 ng/mL); Barbiturate Urine VISTA NEGATIVE (< 200 ng/mL); Benzodiazepine Urine VISTA NEGATIVE (< 200 ng/mL); Cocaine Urine VISTA NEGATIVE (< 300 ng/mL); Ecstacy Urine VISTA NEGATIVE (< 500 ng/mL); Methadone Urine VISTA NEGATIVE (< 300 ng/mL); PCP Urine VISTA NEGATIVE (< 25 ng/mL); THC Urine VISTA NEGATIVE (< 50 ng/mL); Vista UDS pH Range 5
[2024-03-23 17:06] LABS: AST(SGOT) 31 U/L (15-37); Alanine Aminotransfer ALT/SGPT 45 U/L (16-61); Albumin, Serum 4.5 g/dL (3.2-5.0); Alkaline Phosphatase 67 U/L (45-117); Anion Gap 7 (5-15); BUN 8 mg/dL (7-18); BUN/Creat Ratio 8.2 RATIO (10-20); Bilirubin, Direct 0.46 mg/dL (0.00-0.30); Calcium,Total 9.9 mg/dL (8.5-10.1); Chloride 98 mmol/L (98-107); Creatinine, Serum 0.98 mg/dL (0.70-1.30); EST Glomerular Filtration Rate 94 mL/min (>60); Est Glom Filt Rate - Afr Amer 114 mL/min (>60); Estimated Creatinine Clearance 101.17 ml/min; Globulin 3.1 g/dL (2.2-4.2); Glucose 98 mg/dL (74-106); Potassium 3.8 mmol/L (3.5-5.1); Protein, Total 7.6 g/dL (6.4-8.2); Sodium Level 134 mmol/L (136-145)
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
[2024-03-23 20:12] VITALS: BP 136/94; PULSE 100; RESP 16; TEMP 36.5; O2SAT 93
--- NOTE | 2024-03-23 23:13 | CM.ED ---
Social Work: Unsuccessful phone contact with patient's father per his request for contact. No answer. grain mill worker left a message. Crisis Team working on completing placement for patient. Possible placement at [facility]. Awaiting response. Afia Willis, TEAM ASSISTANT, CLIENT SERVICE ASSOCIATE
[2024-03-24 04:00] VITALS: BP 115/89; PULSE 88; RESP 16; TEMP 36.9; O2SAT 96
[2024-03-24 08:25] VITALS: BP 112/85; PULSE 87; RESP 14; TEMP 36.7; O2SAT 99
== END 2024-03-24 08:26 ==
PROVIDERS: Emergency Provider Emergency Medicine; PCP Family Medicine; Visit Provider Emergency Medicine
DX: F20.9 Schizophrenia, unspecified (principal); Z87.891 Personal history of nicotine dependence
CPT/HCPCS: 80048; 80076; 80307; 81001; 82077; 85025; 99284; J7030; A4216

== ENCOUNTER 2024-04-13 13:23 | Emergency (ER) | payer MEDICAID, SELFPAY ==
[2024-04-13 13:24] VITALS: BP 127/86; PULSE 87; RESP 16; TEMP 36.6; O2SAT 97; BMI 25.0
--- NOTE | 2024-04-13 13:43 | EKG12_ITS ---
Test Reason : MEDICAL CLEARANCE Blood Pressure : / mmHG Vent. Rate : 066 BPM Atrial Rate : 066 BPM P-R Int : 146 ms QRS Dur : 092 ms QT Int : 406 ms P-R-T Axes : 051 021 021 degrees QTc Int : 425 ms Normal sinus rhythm Normal ECG BASELINE ARTIFACT COULD AFFECT ACCURRACY Confirmed by Matheus Ocampo ([id number]), newspaper copy editor DOT MOLINA ([id number]) on 04/17/2024 9:10:33 AM Referred By: Confirmed By:Matheus Ocampo
--- NOTE | 2024-04-13 14:00 | EDS_ITS ---
HPI HPI - Psych History of Present Illness Chief Complaint: Mental Health Narrative Narrative: History and physical limited secondary to psychiatric condition. Patient states that he brought himself here because of schizophrenia and schizoaffective disorder. He states he was recently hospitalized at [facility], and was released 2 days ago. He states that his medications are not working, and he feels more psychotic he denies suicidal ideation, denies homicidal ideation but states he is hearing voices. PFSH PFS Medical History Schizoaffective disorder Home Medications ?Medication ?Instructions ?Recorded ?Last Taken ?Type melatonin 3 mg capsule 3 mg PO DAILY 05/08/22 Unknown History olanzapine 10 mg disintegrating 10 mg PO DAILY 05/08/22 Unknown History tablet risperidone 120 mg subcutaneous 120 mg subcut QMONTH 05/08/22 Unknown History extended release suspension syringe (Perseris) valproic acid (as sodium salt) 250 250 mg PO BID 05/08/22 Unknown History mg/5 mL oral solution Allergy/AdvReac Type Severity Reaction Status Date / Time haloperidol (From Haldol) Allergy Other Verified 04/13/24 13:24 peanut Allergy Food Verified 04/13/24 13:24 Allergy shellfish derived Allergy Vomiting Verified 04/13/24 13:24 sulfamethoxazole (From Allergy Itching Verified 04/13/24 13:24 Bactrim) trimethoprim (From Bactrim) Allergy Itching Verified 04/13/24 13:24 Surgical History History of toe surgery Social History household members: family Smoking Status: Former smoker ROS ROS ED Review of Systems ROS Unobtainable: due to mental condition and other Details: Psychiatric condition. EXAM Physical Exam Narrative Exam Narrative: Afebrile. Vital signs noted. Unkempt. HEENT: Normocephalic. Atraumatic. PERRL, EOMI. Neck soft and supple. No point tenderness or step off. Cardiovascular: Regular rate and rhythm. No murmurs, rubs, or gallops appreciated. Respiratory: No tachypnea. Lungs clear to auscultation bilaterally. Gastrointestinal: Abdomen soft, nontender, with normoactive bowel sounds. No rebound or guarding. Neurological: Awake. Alert. Nonfocal, nonlateralizing. Tremoring of hands. Skin: No rash. Normal color. No pallor. Musculoskeletal: No pedal edema. Full range of motion extremities. Psychiatric: No suicidal ideation, no homicidal ideation. States hearing voices, but no obvious internal stimulation except for tremoring of hand. Const Vital Signs: 04/13/24 13:24 04/13/24 15:16 Temperature 97.9 F Temperature Source Temporal Pulse Rate 87 72 Respiratory Rate 16 16 Blood Pressure 127/86 H 116/79 Blood Pressure Mean 99 91 Pulse Ox 97 Oxygen Delivery Method Room Air MDM MDM MDM Narrative Medical decision making narrative: I reviewed the patient's prior ED visits. He was here for psychosis previously. He had been awaiting placement. Medical screening labs will be obtained and reviewed. I reviewed his laboratory work and he has normal white count of 7.8 with hemoglobin 14.1 and hematocrit 41.5, sodium normal at 140 with potassium 3.8, chloride slightly elevated at 108 which I think is nonspecific, normal BUN of 7, creatinine normal at 0.81. LFTs are grossly unremarkable. Ethyl alcohol negative at 4.0. EKG was obtained and interpreted by myself independently as normal sinus rhythm at 66 bpm without ectopy or acute ST changes. No STEMI. Urine drug screen is pending, however I do feel that he is medically cleared for evaluation by crisis. In discussion with the crisis counselor, was thought that the patient is not able to care for himself as he appears unkempt, and is uncertain whether or not he is living with his father any longer. Given his psychosis that is continuing, and his history of noncompliance, it was thought that he did require placement in psychiatric facility again. Once he is fully medically cleared, he will await placement in a psychiatric facility. Patient will be signed out to the oncoming physician, Dr. Paco Urbina, to ensure transfer, and continued observation. Patient is in stable condition. History & Record Review Discussion w/independent historian: Patient Additional record(s) reviewed:: Prior ED visit and Prior labs Lab Data Attestation: I reviewed the patient's lab results. Labs: Laboratory Results - last 24 hr 04/13/24 04/13/24 14:05 15:11 WBC 7.8 RBC 4.99 Hgb 14.1 Hct 41.5 MCV 83.2 MCH 28.3 MCHC 34.0 RDW Std Deviation 39.7 RDW Coeff of Javy 13.1 Plt Count 527 H MPV 8.7 Immature Gran % (Auto) 0.400 Neut % (Auto) 60.1 Lymph % (Auto) 25.4 [place]cd[place] % (Auto) 9.0 Eos % (Auto) 4.3 Baso % (Auto) 0.8 Absolute Neuts (auto) 4.7 Absolute Lymphs (auto) 1.97 Nucleated RBC % 0 Sodium 140 Potassium 3.8 Chloride 108 H Carbon Dioxide 27.0 Anion Gap 5 BUN 7 Creatinine 0.81 Estim Creat Clear Calc 122.41 Est GFR (MDRD) Af Amer 142 Est GFR (MDRD) Non-Af 117 BUN/Creatinine Ratio 8.7 L Glucose 97 Calcium 9.1 Total Bilirubin 1.20 H AST 16 ALT 29 Alkaline Phosphatase 62 Total Protein 6.8 Albumin 3.7 Globulin 3.1 Albumin/Globulin Ratio 1.2 Ur Drug Screen Comment Ethyl Alcohol 4.0 Management Discussion w/another healthcare provider: Behavioral health Discharge Plan Triage Chief Complaint: Mental Health ED Provider: Vega Diana Dx/Rx/DC Orders Prescriptions: No Action olanzapine 10 mg Tablet,Disintegrating 10 mg PO DAILY Perseris 120 mg Suspension,Extended Rel Syring 120 mg SUBCUT QMONTH valproic acid (as sodium salt) 250 mg/5 mL Solution 250 mg PO BID melatonin 3 mg Capsule 3 mg PO DAILY Primary Care Provider: Dennis Olivas Referrals: Dennis Olivas MD [Primary Care Provider] - Print Language: Upper Sorbian
[2024-04-13 14:11] LABS: Absolute Lymphocyte Count 1.97 X10^3/uL (0.83-4.51); Absolute Neutrophil Count 4.7 X10^3/uL (2.0-7.7); Basophil# 0.06 X10^3/uL; Basophil% 0.8 % (0-1); Eosinophil# 0.33 X10^3/uL; Eosinophils% 4.3 % (0-5); Hematocrit 41.5 % (40-54); Hemoglobin 14.1 g/dL (13.0-16.5); Lymphocyte # 1.97 X10^3/ul (0.83-4.51); Lymphocyte % 25.4 % (19-41); Mean Corpuscular Hgb 28.3 pg (27.0-32.0); Mean Corpuscular Volume 83.2 fL (80-94); Mean Platelet Vol. 8.7 fl (6.2-12.0); NRBC Flagged by Analyzer 0 % (0-5); Neutrophil # 4.66 X10^3/uL (2.7-7.7); Neutrophil % 60.1 % (47-70); Platelet Count 527 K/mm3 (150-450); RBC Distribution Width CV 13.1 % (11.6-14.6); RBC Distribution Width SD 39.7 fl (35.1-43.9); Red Blood Count 4.99 M/mm3 (4.6-6.2); White Blood Count 7.8 K/mm3 (4.4-11.0)
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
[2024-04-13 14:55] LABS: ALB/GLOB Ratio 1.2 RATIO (0.9-2.4); AST(SGOT) 16 U/L (15-37); Alanine Aminotransfer ALT/SGPT 29 U/L (16-61); Albumin, Serum 3.7 g/dL (3.2-5.0); Alkaline Phosphatase 62 U/L (45-117); Anion Gap 5 (5-15); BUN 7 mg/dL (7-18); BUN/Creat Ratio 8.7 RATIO (10-20); Calcium,Total 9.1 mg/dL (8.5-10.1); Chloride 108 mmol/L (98-107); Creatinine, Serum 0.81 mg/dL (0.70-1.30); EST Glomerular Filtration Rate 117 mL/min (>60); Est Glom Filt Rate - Afr Amer 142 mL/min (>60); Estimated Creatinine Clearance 122.41 ml/min; Globulin 3.1 g/dL (2.2-4.2); Glucose 97 mg/dL (74-106); Potassium 3.8 mmol/L (3.5-5.1); Protein, Total 6.8 g/dL (6.4-8.2); Sodium Level 140 mmol/L (136-145)
[2024-04-13 15:16] VITALS: BP 116/79; PULSE 72; RESP 16
--- NOTE | 2024-04-13 16:48 | CM.ED ---
Social Work: Referral packet sent to [facility] for possible placement. field crop farm worker will wait to hear back. Afia Willis, VENDING MECHANIC, RUBBER OFF
[2024-04-13 16:55] LABS: Amphetamine Urine VISTA NEGATIVE (<1000 ng/mL); Barbiturate Urine VISTA NEGATIVE (< 200 ng/mL); Benzodiazepine Urine VISTA NEGATIVE (< 200 ng/mL); Cocaine Urine VISTA NEGATIVE (< 300 ng/mL); Ecstacy Urine VISTA NEGATIVE (< 500 ng/mL)
[2024-04-13 16:56] LABS: Methadone Urine VISTA NEGATIVE (< 300 ng/mL); PCP Urine VISTA NEGATIVE (< 25 ng/mL); THC Urine VISTA NEGATIVE (< 50 ng/mL)
--- NOTE | 2024-04-13 17:11 | NURSING ---
ACCEPTED AT [facility] DR PRECIADO NURSE TO NURSE [phone]
--- NOTE | 2024-04-13 17:20 | ED.RN ---
THIS RN CALLED REPORT TO ACCEPTING FACILITY, REPORT GIVEN TO TUYET
--- NOTE | 2024-04-13 17:35 | NURSING ---
ETA 60-90 MIN
--- NOTE | 2024-04-13 18:00 | CM.ED ---
Social Work: field crop harvest worker called [facility] again ([phone] and spoke with Karime who stated patient was accepted by Dr. Herrera. Patient will go to their 1500 unit. Nurse to nurse number: [phone] Afia Willis, COSMETICS DEMONSTRATOR, [employer]EST MANAGEMENT TEACHER
[2024-04-13 18:11] VITALS: BP 127/83; PULSE 86; RESP 16; O2SAT 98
[2024-04-13 18:12] VITALS: BP 127/83; PULSE 86; RESP 16; TEMP 36.3; O2SAT 98
[2024-04-15 06:03] LABS: Vista UDS pH Range 5
== END 2024-04-13 19:02 ==
LOC: ED 13:53
PROVIDERS: Emergency Provider Emergency Medicine; PCP Family Medicine; Visit Provider Emergency Medicine
DX: F20.9 Schizophrenia, unspecified (principal); Z79.899 Other long term (current) drug therapy; Z87.891 Personal history of nicotine dependence
CPT/HCPCS: 80053; 80307; 82077; 85025; 93005; 99283